=== PATIENT | female | born 1950 | race Caucasian/White ===

== ENCOUNTER 2020-01-30 09:41 | Outpatient (CLI) | payer MEDICARE, SELFPAY ==
--- NOTE | ~2020-01-30 | MM_ITS ---
EXAMINATION: MM screening [facility] BI w jean HISTORY: Screening mammogram TECHNIQUE: Craniocaudal and mediolateral oblique 3-D tomosynthesis images were obtained and synthetic 2-D images were generated. CAD analysis was submitted and interpreted. COMPARISON: Comparison to multiple prior studies sequentially, with oldest reviewed study dated 01/13. BREAST PARENCHYMAL COMPOSITION: There are scattered areas of fibroglandular density. FINDINGS: There are benign breast calcifications. There is no evidence of suspicious mass, calcificat ion, or architectural distortion to suggest malignancy in either breast. There has been no suspicious interval change. IMPRESSION: 1. No mammographic evidence of malignancy. 2. Recommend routine screening mammography in one year. BI-RADS Category 2: Benign finding(s). Reviewed, dictated and finalized at location A.
== END 2020-01-30 09:42 | disposition home or self-care (01) ==
LOC: ANHIMG 09:48
PROVIDERS: PCP Family Medicine; Visit Provider Obstetrics & Gynecology Gynecology
DX: Z12.31 Encounter for screening mammogram for malignant neoplasm of breast (principal)
CPT/HCPCS: 77063; 77067

== ENCOUNTER 2020-06-04 11:14 | Outpatient (NON) | payer MEDICARE, OTHER, SELFPAY ==
[2020-06-05 22:36] LABS: SARS-CoV-2 RNA PCR Negative
== END 2020-06-04 11:15 ==
LOC: ANHCOVIDDT 11:16
PROVIDERS: PCP Family Medicine; Visit Provider Family Medicine
DX: Z20.828 Contact with and (suspected) exposure to other viral communicable diseases (principal); R05 Cough
CPT/HCPCS: 87635; C9803; U0003

== ENCOUNTER → 2021-05-20 12:58 | Outpatient (CLI) | payer MEDICARE, SELFPAY ==
--- NOTE | ~2021-05-20 | DEXA_ITS ---
Bone Density Report Name: Evelyn Matthews Age: 71 Sex: Female Ethnicity: White Date of : 1950 Indication: monitoring treatment; parental hip fracture; height loss; prior fracture; hysterectomy; postmenopausal Referring Provider: DEANNA SAXENA Study: Bone densitometry was performed. Exam Date: May 20, 2021 Accession number: [id number] There is hypertrophic degenerative change of the lumbar spine, which results in higher than expected spine bone mineral density measurements. These spine BMD and T score and Z score measurements are not reflective of the patient's true general bone mineral density. Bone Density: Region BMD T-score Z-score Classification AP Spine (L1-L4) 1.121 0.7 2.8 Normal Femoral Neck (Left) 0.774 -0.7 1.1 Normal Total Hip (Left) 0.898 -0.4 1.1 Normal World Health Organization criteria for BMD impression classify patients as: Normal (T-score at or above -1.0), Osteopenia (T-score between -1.0 and -2.5), or Osteoporosis (T-score at or below -2.5). 10-year Fracture Risk: FRAX not reported because: All T-scores for Spine Total, Hip Total, Femoral Neck at or above -1.0 Prior hip or vertebral fracture Treated for osteoporosis Previous Exams: Region Exam Age BMD T-score BMD Change BMD Change Date g/cm2 vs Baseline vs Previous AP Spine(L1-L4) 05/20/2021 71 1.121 0.7 0.044* -0.025* 06/05/2016 66 1.145 0.9 0.069* 0.067* 09/21/2011 61 1.079 0.3 0.002 0.008 07/22/2009 59 1.071 0.2 -0.006 -0.006 01/13/2006 55 1.077 0.3 Total Hip(Left) 05/20/2021 71 0.898 -0.4 0.036* 0.009 06/05/2016 66 0.889 -0.4 0.027 0.040* 09/21/2011 61 0.849 -0.8 -0.013 -0.024 07/22/2009 59 0.873 -0.6 0.011 0.011 01/13/2006 55 0.862 -0.7 *Denotes significance at 95% confidence level, LSC for AP Spine = 0.022 g/cm2, LSC for Total Hip = 0.027 g/cm2 Clinical Information Provided by Patient: Have had a previous hip or vertebral fracture Has had a low trauma fracture Parent has had a hip fracture Is being treated for osteoporosis Has used the following medications: HRT (i.e. estrogen/hormone therapy), Vitamin D, Calcium, MTV Has the following medical conditions: Hysterectomy Patient maximum height was 66 Menopause Age: 46 Does not regularly consume dairy products Onset of menses at age 13 Number of children 2 Impression: The patient has normal bone mas
--- NOTE | ~2021-05-20 | MM_ITS ---
EXAMINATION: MM screening [facility] w jean HISTORY: Screening mammogram TECHNIQUE: Craniocaudal and mediolateral oblique 3-D tomosynthesis images were obtained and synthetic 2-D images were generated. CAD analysis was submitted and interpreted. COMPARISON: 01/20/2020, 10/18/2018, 07/28/2017 bilateral digital screening mammogram examinations BREAST PARENCHYMAL COMPOSITION: There are scattered areas of fibroglandular density. FINDINGS: There are numerous bilateral benign calcifications, particularly secretory type calcificati ons. There is no evidence of suspicious mass, calcification, or architectural distortion to suggest m alignancy in either breast. There has been no suspicious interval change. IMPRESSION: 1. No mammographic evidence of malignancy. 2. Recommend routine screening mammography in one year. BI-RADS Category 2: Benign finding(s). Reviewed, dictated and finalized at location A.
== END ==
PROVIDERS: PCP Family Medicine; Visit Provider Obstetrics & Gynecology Gynecology
DX: Z12.31 Encounter for screening mammogram for malignant neoplasm of breast (principal); Z78.0 Asymptomatic menopausal state
CPT/HCPCS: 77063; 77067; 77080

== ENCOUNTER → 2021-08-28 12:46 | Outpatient (CLI) | payer MEDICARE, OTHER, SELFPAY ==
--- NOTE | ~2021-08-28 | US_ITS ---
EXAMINATION: US thyroid DATE: 08/28/2021 13:12 INDICATION: Nontoxic multinodular goiter. TECHNIQUE: Multiple ultrasound images of the thyroid were obtained. COMPARISON: None. FINDINGS: The right thyroid lobe measures 5.4 x 2.1 x 2.2 cm. The left thyroid lobe measures 5.8 x 2.0 x 2.4 c m. In the left thyroid lobe, there is a 2.8 cm predominantly solid, hypoechoic, foiqx-mzpv-pqdm nodu le with ill-defined margin without echogenic foci (TI-RADS TR4). In the left thyroid lobe, there is a 1.4 cm solid, hypoechoic, ulang-jhyw-tlee nodule with ill-defined margin without echogenic foci (TR4 ). In the right thyroid lobe, there is a 1.2 cm solid, hypoechoic, zdftf-siyg-nrqa nodule with ill-de fined margin without echogenic foci (TR4). In the right thyroid lobe, there is a 1.5 cm solid, hypoec hoic, wptdk-zvnl-tljm nodule with ill-defined margin without echogenic foci (TR4). In the right thyro id lobe, there is a 1.7 cm solid, hypoechoic, wssoa-kmtk-qolz nodule with ill-defined margin without echogenic foci (TR4). IMPRESSION: 1. Multinodular goiter. Ultrasound-guided fine-needle aspiration of 2 nodules is recommended. Reviewed, dictated and finalized at location A. UP IMPRESSION: 1. Multinodular goiter. Ultrasound-guided fine-needle aspiration of 2 nodules i s recommended.
== END ==
PROVIDERS: PCP Family Medicine; Visit Provider Family Medicine
DX: E04.2 Nontoxic multinodular goiter (principal)
CPT/HCPCS: 76536

== ENCOUNTER 2021-09-18 10:07 | Outpatient (CLI) | payer MEDICARE, OTHER, SELFPAY ==
--- NOTE | ~2021-09-18 | US_ITS ---
EXAMINATION: US FNA w image guidance, US FNA additional DATE: 09/18/2021 11:15 INDICATION: Nontoxic multinodular goiter COMPARISON: 08/28/2021 TECHNIQUE: A time-out was performed to verify the patient's name, date of , and procedure to be performed . The procedure and its benefits and risks were discussed with the patient. Risks specifically discus sed included bleeding and infection. The patient understood the risks and agreed to proceed. The neck was prepped and draped in the usual sterile manner. Attention was first turned to the left thyroid n odule. 3 mL 1% lidocaine was used for local anesthesia. 6 passes were made with a 25G needle into th e lesion. Appropriate needle location was documented with continuous sonographic guidance. Attention was then turned to the right thyroid nodule. No additional 2 mL 1% lidocaine was used for local anes thesia. 6 passes were made with a 25G needle into the lesion. Appropriate needle location was documen carla with continuous sonographic guidance. Sterile bandages were applied. There were no immediate com plications. FINDINGS: Grayscale ultrasound images demonstrate biopsy needles advanced into initially a 2.2 cm TI RADS 4 lef t thyroid nodule and subsequently the largest 1.4 cm TI RADS 4 nodule at the inferior left thyroid. IMPRESSION: 1. Successful ultrasound-guided fine needle aspiration of the largest 2.2 cm TI-RADS 4 left thyroid nodule. Line 2. Successful ultrasound-guided fine-needle aspiration of the second largest thyroid nodule measuring 1.4 cm in the left thyroid. Reviewed, dictated and finalized at location A. T JOURNALIST IMPRESSION: 1. Successful ultrasound-guided fine needle aspiration of the largest 2.2 cm T I-RADS 4 left thyroid nodule. Line 2. Successful ultrasound-guided fine-needle aspiration of the second largest th yroid nodule measuring 1.4 cm in the left thyroid.
== END 2021-09-18 10:08 | disposition home or self-care (01) ==
PROVIDERS: PCP Family Medicine; Visit Provider Otolaryngology
DX: E04.2 Nontoxic multinodular goiter (principal)
CPT/HCPCS: 10005; 10006; 88173; 88305

== ENCOUNTER → 2022-02-21 09:17 | Outpatient (CLI) | payer OTHER, SELFPAY ==
--- NOTE | ~2022-02-21 | XR_ITS ---
XR shoulder LT min 2V 02/21/2022 09:36 Indication: Left shoulder pain Procedure: 4 views left shoulder Comparison: No prior studies for comparison. 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 No fracture or traumatic m alalignment. No soft tissue abnormality. No foreign bodies. Impression: 1: No acute fracture. Reviewed, dictated and finalized at location A. Impression: 1: No acute fracture.
== END ==
PROVIDERS: PCP Family Medicine; Visit Provider Family Medicine
DX: M25.512 Pain in left shoulder (principal)
CPT/HCPCS: 73030

== ENCOUNTER → 2022-09-02 12:56 | Outpatient (CLI) | payer OTHER, SELFPAY ==
--- NOTE | ~2022-09-02 | MM_ITS ---
EXAMINATION: MM screening [facility] w jean HISTORY: Screening TECHNIQUE: Craniocaudal and mediolateral oblique 3-D tomosynthesis images were obtained and synthetic 2-D images were generated. CAD analysis was submitted and interpreted. COMPARISON: Comparison to multiple prior studies sequentially, with oldest reviewed study dated 04/16 BREAST PARENCHYMAL COMPOSITION: There are scattered areas of fibroglandular density. FINDINGS: There is no evidence of suspicious mass, calcification, or architectural distortion to sugg est malignancy in either breast. There has been no suspicious interval change. IMPRESSION: 1. No mammographic evidence of malignancy. 2. Recommend routine screening mammography in one year. BI-RADS Category 1: Negative Reviewed, dictated and finalized at location A. LE OPERATOR
== END ==
PROVIDERS: PCP Family Medicine; Visit Provider Obstetrics & Gynecology Gynecology
DX: Z12.31 Encounter for screening mammogram for malignant neoplasm of breast (principal)
CPT/HCPCS: 77063; 77067

== ENCOUNTER 2022-10-08 01:24 | Day surgery (SDC) | payer OTHER, SELFPAY ==
[2022-09-30 14:39] VITALS: BMI 29.1
[2022-10-08 11:15] VITALS: BP 139/83; PULSE 93; RESP 18; TEMP 36.2; O2SAT 98
[2022-10-08] MEDS: LACTATED RINGERS 1,000 ML 150 ML IV CONT (11:19)
--- NOTE | 2022-10-08 11:22 | WPDHPUPDATE1 ---
History and Physical Update Update Date/Time: 10/08/22 11:22 History and Physical has been reviewed, including an updated exam of the patient. There are NO changes in the patient's condition. Risks, benefits, and alternatives have been discussed and questions answered. Patient agrees to proceed with procedure.
--- NOTE | 2022-10-08 12:00 | WPDANESEPPF ---
Anes - Initial Pre Proc Eval Procedure: Operation Date: 10/08/22 12:30 Proposed Procedures p Screening Colonoscopy - Darrell Thomas MD Date/Time: 10/08/22 12:00 Surgeon: Darrell Thomas MD Pre Op Diagnosis: neoplasm screening Patient Data Age: 72 Gender: F Height: 1.65 m Weight: 79.5 kg Last Vital Signs Temp 97.1 F L 10/08/22 11:15 Pulse 93 10/08/22 11:15 Resp 18 10/08/22 11:15 BP 139/83 10/08/22 11:15 Pulse Ox 98 10/08/22 11:15 O2 Del Method Room Air 10/08/22 11:15 Allergies Allergy/AdvReac Type Severity Reaction Status Date / Time amoxicillin Allergy Severe Hives Verified 10/08/22 11:13 ceftriaxone Allergy Severe low Verified 10/08/22 11:13 platlets Penicillins Allergy Severe Dermatitis Verified 10/08/22 11:13 Sulfa (Sulfonamide Allergy Intermediate RASH Verified 10/08/22 11:13 Antibiotics) codeine AdvReac Intermediate Nausea Verified 10/08/22 11:13 Azithromycin Allergy Mild swelling Uncoded 09/30/22 14:42 of lips Home Medications Medication Instructions Recorded Confirmed Type B-complex with vitamin C (Super 1 cap PO DAILY 06/15/19 09/30/22 History B/C capsule) Bacillus coagulans 10 billion cell 1 cell PO DAILY 06/15/19 09/30/22 History capsule,delayed release (Probiotic (B. coagulans)) calcium cit 315 mg-ergocalciferol 1 tablet PO DAILY 06/15/19 09/30/22 History (vitamin D2) 5 mcg (200 unit) tablet cetirizine 10 mg tablet (Zyrtec) 10 mg PO DAILY PRN ALLERGIES 06/15/19 09/30/22 History cholecalciferol (vitamin D3) 125 5,000 unit PO DAILY 06/15/19 09/30/22 History mcg (5,000 unit) tablet estradiol 1 mg tablet 1 mg PO DAILY 06/15/19 09/30/22 History multivitamin 1 tablet PO DAILY 06/15/19 09/30/22 History lisinopril 10 mg tablet 10 mg PO DAILY #90 tabs 03/12/22 09/30/22 Rx pravastatin 40 mg tablet 40 mg PO DAILY #90 tabs 04/15/22 09/30/22 Rx triamterene 37.5 1 tablet PO QAM #90 tabs 05/26/22 09/30/22 Rx mg-hydrochlorothiazide 25 mg tablet allopurinol 100 mg tablet 200 mg PO DAILY #180 tabs 07/22/22 09/30/22 Rx diphenoxylate-atropine 2.5 1 tablet PO QID PRN diarrhea #120 08/04/22 09/30/22 Rx mg-0.025 mg tablet (Lomotil) tabs dicyclomine 20 mg tablet 20 mg PO QID PRN abdominal pain 09/16/22 09/30/22 Rx #120 tabs cephalexin 500 mg capsule 500 mg PO BID 09/30/22 09/30/22 History meloxicam 15 mg tablet 15 mg PO DAILY 09/30/22 09/30/22 History Patient hx anesthesia problems: none Family hx anesthesia problems: none Results Review: All pre-operative results and documents have been reviewed as part of the pre-operative evaluation. [facility] Past Medical History Medical History Acute non-recurrent maxillary sinusitis Allergic drug reaction Atypical chest pain Benign paroxysmal positional vertigo due to bilateral vestibular disorder BMI 27.0-27.9,adult BMI 28.0-28.9,adult BMI 29.0-29.9,adult BMI 33.0-33.9,adult Body mass index (bmi) 32.0-32.9, adult (12/22/18) Chronic low back pain without sciatica Chronic pain in left shoulder X-ray of the left shoulder reveals mild arthritis 02/21/2022. Cough GERD (gastroesophageal reflux disease) Irritable bowel syndrome with diarrhea Multinodular non-toxic goiter ultrasound of the thyroid with multiple solid nodules with ill-defined margins 08/28/2021 Overweight (BMI 25.0-29.9) Septic arthritis of knee, left Vitamin D insufficiency Family History Family History Father Acute myocardial infarction, Onset Age: 59 Sibling Family history of malignant neoplasm, Onset Age: 58 Mother Family history of congestive heart failure, Onset Age: 75 Social History Social History Smoking status: Former smoker Alcohol intake: never Substance use: never Substance use type: does not
[2022-10-08 12:12] VITALS: BP 114/71; PULSE 66; RESP 19; O2SAT 98
[2022-10-08 12:22] VITALS: BP 127/83; PULSE 63; RESP 17; O2SAT 98
[2022-10-08 12:32] VITALS: BP 128/76; PULSE 57; RESP 18; O2SAT 99
== END 2022-10-08 12:44 | disposition home or self-care (01) ==
PROVIDERS: PCP Family Medicine; Visit Provider Internal Medicine Gastroenterology
PROC: 0DJD8ZZ Inspection of Lower Intestinal Tract, Via Natural or Artificial Opening Endoscopic (ICD-10-PCS; CPT 45378; principal; 2022-10-08 12:30)
DX: Z12.11 Encounter for screening for malignant neoplasm of colon (principal); K64.8 Other hemorrhoids; K58.9 Irritable bowel syndrome, unspecified; Z86.010 Personal history of colon polyps; K21.9 Gastro-esophageal reflux disease without esophagitis; E55.9 Vitamin D deficiency, unspecified
CPT/HCPCS: G0105; J2704; J7120

== ENCOUNTER → 2023-01-07 13:52 | Outpatient (CLI) | payer OTHER, SELFPAY ==
--- NOTE | ~2023-01-07 | XR_ITS ---
XR elbow RT 2V DATE: 01/07/2023 14:05 INDICATION: Right elbow pain for 2 weeks. No known injury. TECHNIQUE: AP and lateral views COMPARISON: None FINDINGS: No fracture or dislocation or joint effusion. No periosteal reaction or bone destruction. IMPRESSION: No significant abnormality Reviewed, dictated and finalized at location . IMPRESSION: No significant abnormality
== END ==
PROVIDERS: PCP Family Medicine; Visit Provider Nurse Practitioner Family
DX: M25.521 Pain in right elbow (principal); M79.621 Pain in right upper arm
CPT/HCPCS: 73070

== ENCOUNTER 2023-06-07 11:59 | Outpatient (CLI) | payer OTHER, SELFPAY ==
--- NOTE | 2023-06-07 12:04 | ECG_ITS ---
Measurements Intervals [place] Rate: 82 P: -7 AL: 191 QRS: -42 QRSD: 97 T: 4 QT: 376 QTc: 442 Interpretive Statements SINUS RHYTHM LEFT AXIS DEVIATION DELAYED PRECORDIAL R/S TRANSITION LOW QRS VOLTAGE IN PRECORDIAL LEADS INFERIOR INFARCT, AGE INDETERMINATE BASELINE WANDER- III, V4-V5 ABNORMAL ECG NO PREVIOUS ECG AVAILABLE FOR COMPARISON Electronically Signed On 06-07-2023 13:09:03 PATIENT FINANCIAL COUNSELOR by Sebastián Marie D.O.
== END 2023-06-07 12:00 | disposition home or self-care (01) ==
LOC: ANHCARD 12:00
PROVIDERS: PCP Family Medicine; Visit Provider Family Medicine
DX: R94.31 Abnormal electrocardiogram [ECG] [EKG] (principal); I44.4 Left anterior fascicular block
CPT/HCPCS: 93005

== ENCOUNTER 2023-06-17 14:05 | Outpatient (CLI) | payer OTHER, SELFPAY ==
--- NOTE | 2023-06-22 11:52 | WPDHOLTEREM ---
Holter/Event Monitor Holter/Event Monitor Date of procedure: 06/17/23 Holter/Event Procedure: 24 Hr Holter Monitor Indications: Palpitations Conclusion: 1. 24 hour holter monitor on 06/17/23. 2. Predominant rhythm is sinus rhythm. HR range 50-130 bpm; average HR 74 bpm. 3. There are 69 premature supraventricular complexes and 10 supraventricular couplets. There are 2 episodes of atrial tachycardia, fastest at 122 bpm and longest lasting 5 beats. 4. There are 429 premature ventricular complexes. No ventricular tachycardia. 5. No sinoatrial or atrioventricular blocks. No significant pauses greater than 2 seconds. 6. Patient reports symptoms of chest pounding, breathing hard, rapid beating, rate up which demonstrate sinus rhythm, HR range 65-105 bpm.
== END 2023-06-17 14:06 | disposition home or self-care (01) ==
PROVIDERS: PCP Family Medicine; Visit Provider Family Medicine
DX: R00.2 Palpitations (principal)
CPT/HCPCS: 93225; 93226

== ENCOUNTER → 2023-09-03 13:00 | Outpatient (CLI) | payer OTHER, SELFPAY ==
--- NOTE | ~2023-09-03 | MM_ITS ---
EXAMINATION: MM screening [facility] BI w jean HISTORY: Screening TECHNIQUE: Craniocaudal and mediolateral oblique 3-D tomosynthesis images were obtained and synthetic 2-D images were generated. CAD analysis was submitted and interpreted. COMPARISON: Comparison to multiple prior studies sequentially, with oldest reviewed study dated 11/2015. BREAST PARENCHYMAL COMPOSITION: Dense: The breasts are heterogeneously dense, which may obscure small masses FINDINGS: There is no evidence of suspicious mass, calcification, or architectural distortion to sugg est malignancy in either breast. There has been no suspicious interval change. IMPRESSION: 1. No mammographic evidence of malignancy. 2. Recommend routine screening mammography in one year. BI-RADS Category 1: Negative Reviewed, dictated and finalized at location A. LY TEAM MEMBERS
== END ==
PROVIDERS: PCP Family Medicine; Visit Provider Obstetrics & Gynecology Gynecology
DX: Z12.31 Encounter for screening mammogram for malignant neoplasm of breast (principal)
CPT/HCPCS: 77063; 77067

== ENCOUNTER 2024-03-24 09:18 | Outpatient (CLI) | payer OTHER, SELFPAY ==
[2024-03-24 10:43] LABS: Toxigenic C. Diff NEGATIVE (NEGATIVE)
[2024-04-01 22:07] LABS: Calprotectin, Stool 992 mcg/g
== END 2024-03-24 09:19 | disposition home or self-care (01) ==
LOC: ANHLAB 09:20
PROVIDERS: PCP Family Medicine; Visit Provider Nurse Practitioner Family
DX: R19.7 Diarrhea, unspecified (principal)
CPT/HCPCS: 83993; 87045; 87269; 87427; 87449; 87493

== ENCOUNTER 2024-05-02 10:02 | Outpatient (CLI) | payer OTHER, SELFPAY ==
[2024-05-02 11:24] LABS: Toxigenic C. Diff NEGATIVE (NEGATIVE)
[2024-05-08 23:24] LABS: Calprotectin, Stool 1860 mcg/g
== END 2024-05-02 10:03 | disposition home or self-care (01) ==
LOC: ANHLAB 10:03
PROVIDERS: PCP Family Medicine; Visit Provider Nurse Practitioner Family
DX: R19.5 Other fecal abnormalities (principal); A02.9 Salmonella infection, unspecified
CPT/HCPCS: 83993; 87045; 87427; 87449; 87493

== ENCOUNTER 2024-06-09 08:31 | Outpatient (CLI) | payer OTHER, SELFPAY ==
--- NOTE | ~2024-06-09 | CT_ITS ---
CT of the Abdomen and Pelvis: Indication: Diarrhea Technique: 2.5 mm axial scans were obtained through the abdomen and pelvis following intravenous adm inistration of 100 cc of Omnipaque 350. Dose reduction technique was used on this scan by utilizing a utomated exposure control and iterative reconstruction technique. The dose-length product (DLP) was 5 63.36 mGy-cm. Findings: Scans through the lung bases are unremarkable. The liver, spleen, pancreas, gallbladder, adrenals and left kidney are within normal limits. 6 mm non obstructing right renal stone present. No evidence of aortic aneurysm. No lymphadenopathy. Suspected mild wall thickening in the transverse and descending colon. No bowel obstruction. No absce ss or free air. Images through the pelvis were performed. Urinary bladder unremarkable. No pelvic mass evident. No as cites. Impression: Suspected mild colitis of the transverse and descending colon. Correlate clinically. 6 mm nonobstructing right renal stone. Reviewed, dictated and finalized at location . EHOLD ASSISTANT Impression: Suspected mild colitis of the transverse and descending colon. Correlate clinic ally. 6 mm nonobstructing right renal stone.
[2024-06-09 08:03] LABS: Estimated Glomerular Filt Rate > 60
[2024-06-09 09:03] LABS: Hematocrit 40.9 % (37.0-47.0); Hemoglobin 13.6 g/dL (12.0-15.0); Mean Corpuscular HGB Conc 33.3 g/dl (32-36); Mean Corpuscular Hemoglobin 32.4 pg (26-34); Mean Corpuscular Volume 97.4 fl (80-100); Mean Platelet Volume 9.5 fl (7.4-10.4); Platelet Count Result 342 k/mm3 (150-375); Red Cell Distribution Width 14.4 % (11.5-14.5); White Blood Count 8.9 K/mm3 (4.5-10.0)
[2024-06-09 10:16] LABS: Erythrocyte Sedimentation Rate 22 mm/hr (0-20)
[2024-06-09 11:53] LABS: Alanine Aminotransferase 20 U/L (6-35); Alkaline Phosphatase 58 U/L (38-126); Anion Gap 6 mmol/L (4-12); Aspartate Amino Transferase 36 U/L (14-36); Bilirubin,Total 0.6 mg/dL (0.2-1.3); Blood Urea Nitrogen 18 mg/dL (7-17); CRP 1.1 mg/dL (<1.0); Calcium 9.8 mg/dL (8.4-10.2); Carbon Dioxide 29 mmol/L (22-30); Chloride 96 mmol/L (98-107); Estimated Glomerular Filt Rate > 60; Glucose 102 mg/dL (65-110); Potassium 4.8 mmol/L (3.4-5.0); Sodium 131 mmol/L (137-145)
== END 2024-06-09 08:32 | disposition home or self-care (01) ==
PROVIDERS: PCP Family Medicine; Visit Provider Nurse Practitioner Family
DX: R19.7 Diarrhea, unspecified (principal); R10.9 Unspecified abdominal pain; R19.5 Other fecal abnormalities; N20.0 Calculus of kidney
CPT/HCPCS: 36415; 74177; 80053; 85027; 85652; 86140; Q9967

== ENCOUNTER 2024-07-13 01:00 | Day surgery (SDC) | payer OTHER, SELFPAY ==
[2024-07-05 09:04] VITALS: BMI 28.0
--- NOTE | 2024-07-13 11:29 | WPDANESEPPF ---
Anes - Initial Pre Proc Eval Procedure: Operation Date: 07/13/24 14:00 Proposed Procedures p Colonoscopy - Adrián Oates MD Date/Time: 07/13/24 11:29 Surgeon: Adrián Oates MD Pre Op Diagnosis: Diarrhea Patient Data Age: 74 Gender: F Height: 1.65 m Weight: 76.3 kg Allergies Allergy/AdvReac Type Severity Reaction Status Date / Time amoxicillin Allergy Severe Hives Verified 07/13/24 11:27 ceftriaxone Allergy Severe low Verified 07/13/24 11:27 platlets Penicillins Allergy Severe Dermatitis Verified 07/13/24 11:27 Sulfa (Sulfonamide Allergy Intermediate RASH Verified 07/13/24 11:27 Antibiotics) codeine AdvReac Intermediate Nausea Verified 07/13/24 11:27 Azithromycin Allergy Mild swelling Uncoded 07/05/24 08:59 of lips Home Medications ?Medication ?Instructions ?Recorded ?Confirmed ?Type B-complex with vitamin C (Super 1 cap PO DAILY 06/15/19 07/05/24 History B/C capsule) Bacillus coagulans 10 billion cell 1 cell PO DAILY 06/15/19 07/05/24 History capsule,delayed release (Probiotic (B. coagulans)) calcium 315 mg (as 1 tablet PO DAILY 06/15/19 07/05/24 History citrate)-ergocalciferol 5 mcg (200 unit) tablet cetirizine 10 mg tablet (Zyrtec) 10 mg PO DAILY PRN ALLERGIES 06/15/19 07/05/24 History cholecalciferol (vitamin D3) 125 5,000 unit PO DAILY 06/15/19 07/05/24 History mcg (5,000 unit) tablet estradiol 1 mg tablet 1 mg PO DAILY 06/15/19 07/05/24 History multivitamin 1 tablet PO DAILY 06/15/19 07/05/24 History allopurinol 100 mg tablet 200 mg (2 x 100 mg) PO DAILY #180 07/20/23 07/05/24 Rx tabs meloxicam 15 mg tablet 15 mg PO DAILY #90 tabs 07/20/23 07/05/24 Rx bupropion HCl 150 mg 24 hr tablet, 150 mg PO QAM #30 tabs 10/11/23 07/05/24 Rx extended release (Wellbutrin XL) alprazolam 0.25 mg tablet 0.125 mg (1/2 x 0.25 mg) PO TID 01/27/24 07/05/24 Rx PRN anxiety #30 tabs lisinopril 10 mg tablet 10 mg PO DAILY #90 tabs 02/14/24 07/05/24 Rx ferrous sulfate 325 mg (65 mg 325 mg PO DAILY 03/23/24 07/05/24 History iron) tablet,delayed release triamterene 37.5 1 tablet PO QAM #90 tabs 05/09/24 07/05/24 Rx mg-hydrochlorothiazide 25 mg tablet metoprolol succinate 25 mg 25 mg PO DAILY #30 tabs 06/05/24 07/05/24 Rx tablet,extended release 24 hr pravastatin 40 mg tablet 40 mg PO DAILY #90 tabs 06/19/24 07/05/24 Rx Patient hx anesthesia problems: none Family hx anesthesia problems: none Results Review: All pre-operative results and documents have been reviewed as part of the pre-operative evaluation. [facility] Past Medical History Medical History (Updated 04/27/24 @ 13:44 by Olivia Hurd, TECHNOLOGY PROJECT MANAGER-C) Diarrhea Abdominal pain Elevated fecal calprotectin At moderate risk for fall Low iron iron level low at 38 with 13% saturation and ferritin 37 with hemoglobin 13.3 on 03/14/2024. Chronic anxiety Abnormal finding on EKG (06/07/23) EKG on 06/07/2023 revealed signs of left axis deviation and possible previous inferior infarction with Q-waves in the inferior leads. No old EKG for comparison. Frequent PVCs (~05/2023) Rapid palpitations (~05/2023) 24 hour Holter monitor on 06/17/2023 revealed sinus rhythm with frequent PVCs. No worrisome arrhythmias. At low risk for fall URI, acute Breast cancer screening by mammogram normal mammogram 09/02/2022 with recheck in 1 year. Normal mammogram 09/03/2023. Polyp of colon history of colon polyp with normal colonoscopy on 10/08/[address] Thomas with recheck in 5 years. Right elbow pain Pain in right upper arm Benign paroxysmal positional vertigo due to bilateral vestibular disorder Chronic pain in left shoulder X-ray of the left shoulder reveals mild arthritis 02/21/2022. Overweight (BMI 25.0-29.9) BMI 28.0-28.9,adult Multinodular non-toxic goiter ultrasound of the thyroid with multiple solid nodules with ill-defined margins 08/28/2021 . TSH 2.38 on 02/19/2023. BMI 27.0-27.9,adult BMI 29.0-29.9,adult Atypical chest pain Irritable bowel syndrome with diarrhea elevated calprotectin level at 992 on 03/24/2024 suggestive of inflammatory bowel disease. BMI 33.0-33.9,adult GERD (gastroesophageal reflux disease) Allergic drug reaction Acute non-recurrent maxillary sinusitis Cough Chronic low back pain without sciatica Vitamin D insufficiency Vitamin-D level low at 18 with goal greater than 30 on 03/14/2024. Septic arthritis of knee, left Body mass index (bmi) 32.0-32.9, adult (12/22/18) Macrocytosis Hemoglobin 13.4 with MCV normal at 99.7 on 02/19/2023. Other secondary thrombocytopenia Platelets 263 on 02/19/2023. Platelets normal at 270 on 03/14/2024. Family History Family History Father Acute myocardial infarction, Onset Age: 59 Sibling Family history of malignant neoplasm, Onset Age: 58 Mother Family history of congestive heart failure, Onset Age: 75 Social History Social History Smoking status: Former smoker Alcohol intake: never Substance use: never Substance use type: does not use Lack of Transportation: No Lack of Food: Never True Current Housing: I Have Housing Concerned About Future Housing: No Difficulty Paying Gas/Electric Bills: No Difficulty Paying for Meds: No Currently Unemployed: No Education: High School Diploma/GED Difficulty w/ Childcare or Family Care: No Living arrangements: with family Spiritual care concerns: No Anes - Eval Final PreProcedure Day of Procedure 07/13/24 11:29 Patient weight: normal Heart: regular rate and rhythm Lungs: clear to auscultation Neurological: alert and oriented Last oral intake: >/= 8 hours ASA classification: III Emergent: no Anesthetic plan: proceed Anesthesia type and monitoring: general GIVS and standard monitoring Results Review: All pre-operative results and documents have been reviewed as part of the pre-operative evaluation. Informed Consent: The patient's anesthetic plan and its attendant risks and benefits were discussed with the patient/family/POA. Questions were solicited and answers provided to the satisfaction of the patient/family/POA.
[2024-07-13 11:30] VITALS: BP 138/87; PULSE 74; RESP 18; TEMP 36.6; O2SAT 98
[2024-07-13] MEDS: LACTATED RINGERS 1,000 ML 150 ML IV CONT (11:32)
--- NOTE | 2024-07-13 12:03 | P.HP_ITS ---
History of Present Illness History of Present Illness Consent: Risks, benefits, and alternatives have been discussed and questions answered. Patient agrees to proceed with procedure. Chief complaint: Diarrhea Narrative: Evelyn Matthews is a 74 year old female here for colonoscopy, h/o ibs-d (viberzi did not help) but months ago with more diarrhea after had raoultella ornithinolytica- treated with cipro, no more diarrhea since. During her very first colonoscopy had polyp, last one 2022 without polyp. Review of Systems Review of Systems: All systems reviewed & are unremarkable except as noted in HPI and below PMFSH Past Medical History Medical History (Updated 04/27/24 @ 13:44 by Olivia Hurd, [employer]) Diarrhea Abdominal pain Elevated fecal calprotectin At moderate risk for fall Low iron iron level low at 38 with 13% saturation and ferritin 37 with hemoglobin 13.3 on 03/14/2024. Chronic anxiety Abnormal finding on EKG (06/07/23) EKG on 06/07/2023 revealed signs of left axis deviation and possible previous inferior infarction with Q-waves in the inferior leads. No old EKG for comparison. Frequent PVCs (~05/2023) Rapid palpitations (~05/2023) 24 hour Holter monitor on 06/17/2023 revealed sinus rhythm with frequent PVCs. No worrisome arrhythmias. At low risk for fall URI, acute Breast cancer screening by mammogram normal mammogram 09/02/2022 with recheck in 1 year. Normal mammogram 09/03/2023. Polyp of colon history of colon polyp with normal colonoscopy on 10/08/[address] Thomas with recheck in 5 years. Right elbow pain Pain in right upper arm Benign paroxysmal positional vertigo due to bilateral vestibular disorder Chronic pain in left shoulder X-ray of the left shoulder reveals mild arthritis 02/21/2022. Overweight (BMI 25.0-29.9) BMI 28.0-28.9,adult Multinodular non-toxic goiter ultrasound of the thyroid with multiple solid nodules with ill-defined margins 08/28/2021 . TSH 2.38 on 02/19/2023. BMI 27.0-27.9,adult BMI 29.0-29.9,adult Atypical chest pain Irritable bowel syndrome with diarrhea elevated calprotectin level at 992 on 03/24/2024 suggestive of inflammatory bowel disease. BMI 33.0-33.9,adult GERD (gastroesophageal reflux disease) Allergic drug reaction Acute non-recurrent maxillary sinusitis Cough Chronic low back pain without sciatica Vitamin D insufficiency Vitamin-D level low at 18 with goal greater than 30 on 03/14/2024. Septic arthritis of knee, left Body mass index (bmi) 32.0-32.9, adult (12/22/18) Macrocytosis Hemoglobin 13.4 with MCV normal at 99.7 on 02/19/2023. Other secondary thrombocytopenia Platelets 263 on 02/19/2023. Platelets normal at 270 on 03/14/2024. Family History Family History Father Acute myocardial infarction, Onset Age: 59 Sibling Family history of malignant neoplasm, Onset Age: 58 Mother Family history of congestive heart failure, Onset Age: 75 Social History Social History Smoking status: Former smoker Alcohol intake: never Substance use: never Substance use type: does not use Lack of Transportation: No Lack of Food: Never True Current Housing: I Have Housing Concerned About Future Housing: No Difficulty Paying Gas/Electric Bills: No Difficulty Paying for Meds: No Currently Unemployed: No Education: High School Diploma/GED Difficulty w/ Childcare or Family Care: No Living arrangements: with family Spiritual care concerns: No Meds Home Medications and Allergies Home Medications ?Medication ?Instructions ?Recorded ?Confirmed ?Type B-complex with vitamin C (Super 1 cap PO DAILY 06/15/19 07/13/24 History B/C capsule) Bacillus coagulans 10 billion cell 1 cell PO DAILY 06/15/19 07/13/24 History capsule,delayed release (Probiotic (B. coagulans)) calcium 315 mg (as 1 tablet PO DAILY 06/15/19 07/13/24 History citrate)-ergocalciferol 5 mcg (200 unit) tablet cetirizine 10 mg tablet (Zyrtec) 10 mg PO DAILY PRN ALLERGIES 06/15/19 07/13/24 History cholecalciferol (vitamin D3) 125 5,000 unit PO DAILY 06/15/19 07/13/24 History mcg (5,000 unit) tablet estradiol 1 mg tablet 1 mg PO DAILY 06/15/19 07/13/24 History multivitamin 1 tablet PO DAILY 06/15/19 07/13/24 History allopurinol 100 mg tablet 200 mg (2 x 100 mg) PO DAILY #180 07/20/23 07/13/24 Rx tabs meloxicam 15 mg tablet 15 mg PO DAILY #90 tabs 07/20/23 07/13/24 Rx bupropion HCl 150 mg 24 hr tablet, 150 mg PO QAM #30 tabs 10/11/23 07/13/24 Rx extended release (Wellbutrin XL) alprazolam 0.25 mg tablet 0.125 mg (1/2 x 0.25 mg) PO TID 01/27/24 07/13/24 Rx PRN anxiety #30 tabs lisinopril 10 mg tablet 10 mg PO DAILY #90 tabs 02/14/24 07/13/24 Rx ferrous sulfate 325 mg (65 mg 325 mg PO DAILY 03/23/24 07/13/24 History iron) tablet,delayed release triamterene 37.5 1 tablet PO QAM #90 tabs 05/09/24 07/13/24 Rx mg-hydrochlorothiazide 25 mg tablet metoprolol succinate 25 mg 25 mg PO DAILY #30 tabs 06/05/24 07/13/24 Rx tablet,extended release 24 hr pravastatin 40 mg tablet 40 mg PO DAILY #90 tabs 06/19/24 07/13/24 Rx Allergies Allergy/AdvReac Type Severity Reaction Status Date / Time amoxicillin Allergy Severe Hives Verified 07/13/24 11:27 ceftriaxone Allergy Severe low Verified 07/13/24 11:27 platlets Penicillins Allergy Severe Dermatitis Verified 07/13/24 11:27 Sulfa (Sulfonamide Allergy Intermediate RASH Verified 07/13/24 11:27 Antibiotics) codeine AdvReac Intermediate Nausea Verified 07/13/24 11:27 Azithromycin Allergy Mild swelling Uncoded 07/05/24 08:59 of lips Vital Signs Vital Signs - 24 hr 07/13/24 11:30 Temperature 97.9 F Pulse Rate 74 Respiratory Rate 18 Blood Pressure 138/87 Pulse Oximetry 98 Oxygen Delivery Room Air Exam Const: General: comfortable and no acute distress HENMT: Face/Nose/Sinus: Normal nares present Eyes: General: appearance normal, both eyes and all related structures Neck: Neck: no JVD Resp: Auscultation: clear to auscultation bilaterally Cardio: Rate: regular rate Rhythm: regular rhythm GI: Inspection: non-distended GI Palp: Yes Soft to palpation Skin: General skin exam: normal color Neuro: General: gait normal Speech: normal speech Extrem: General: normal to inspection Psych: Mental Status: mental status grossly normal Assessment and Plan Assessment and plan (1) Irritable bowel syndrome with diarrhea: Code(s): K58.0 - Irritable bowel syndrome with diarrhea Status: Acute Assessment and Plan: no more diarrhea, she is not using anything colonoscopy (2) Polyp of colon: Qualifiers: Colon polyp type: unspecified Colon location: unspecified part of colon Qualified Code(s): K63.5 - Polyp of colon Code(s): K63.5 - Polyp of colon Status: Acute
[2024-07-13 12:18] VITALS: BP 92/56; PULSE 56; RESP 20; O2SAT 96
[2024-07-13 12:28] VITALS: BP 98/55; PULSE 54; RESP 19; O2SAT 96
[2024-07-13 12:38] VITALS: BP 111/68; PULSE 545; RESP 19; O2SAT 98
== END 2024-07-13 12:53 | disposition home or self-care (01) ==
PROVIDERS: PCP Family Medicine; Referring Provider Nurse Practitioner; Visit Provider Internal Medicine Gastroenterology
PROC: 0DJD8ZZ Inspection of Lower Intestinal Tract, Via Natural or Artificial Opening Endoscopic (ICD-10-PCS; CPT 45378; principal; 2024-07-13 14:00)
DX: K58.0 Irritable bowel syndrome with diarrhea (principal); K64.8 Other hemorrhoids; E61.1 Iron deficiency; F41.9 Anxiety disorder, unspecified; K21.9 Gastro-esophageal reflux disease without esophagitis; E55.9 Vitamin D deficiency, unspecified; D69.59 Other secondary thrombocytopenia; G89.29 Other chronic pain; M25.512 Pain in left shoulder; M54.50 Low back pain, unspecified; M00.9 Pyogenic arthritis, unspecified; D75.89 Other specified diseases of blood and blood-forming organs; Z87.891 Personal history of nicotine dependence; Z86.0100 Personal history of colon polyps, unspecified; Z80.9 Family history of malignant neoplasm, unspecified; Z82.49 Family history of ischemic heart disease and other diseases of the circulatory system
CPT/HCPCS: 45378; J2003; J2704; J7120

== ENCOUNTER 2024-09-14 10:29 | Outpatient (CLI) | payer OTHER, SELFPAY ==
--- NOTE | ~2024-09-14 | MM_ITS ---
EXAMINATION: MM screening [facility] BI w jean HISTORY: Screening TECHNIQUE: Craniocaudal and mediolateral oblique 3-D tomosynthesis images were obtained and synthetic 2-D images were generated. CAD analysis was submitted and interpreted. COMPARISON: Comparison to multiple prior studies sequentially, with oldest reviewed study dated 07/03. BREAST PARENCHYMAL COMPOSITION: Not dense: There are scattered areas of fibroglandular density. FINDINGS: There is no evidence of suspicious mass, calcification, or architectural distortion to sugg est malignancy in either breast. There has been no suspicious interval change. IMPRESSION: 1. No mammographic evidence of malignancy. 2. Recommend routine screening mammography in one year. BI-RADS Category 1: Negative Reviewed, dictated and finalized at location [facility] [employer]
== END 2024-09-14 10:30 | disposition home or self-care (01) ==
PROVIDERS: PCP Family Medicine; Visit Provider Obstetrics & Gynecology Gynecology
DX: Z12.31 Encounter for screening mammogram for malignant neoplasm of breast (principal)
CPT/HCPCS: 77063; 77067

== ENCOUNTER → 2024-11-01 15:04 | Outpatient (CLI) | payer OTHER, SELFPAY ==
--- NOTE | ~2024-11-01 | XR_ITS ---
Lumbosacral Spine: AP and lateral views Clinical History: Pain Findings: There is levoscoliosis. No fracture or subluxation clearly evident. There are severe degene rative disc narrowing at L2-L3. There is moderate degenerative spurring at L1-L2 and L3-L4. There is severe facet arthropathy throughout the lumbar spine. The sacroiliac joints are normally outlined. Impression: Levoscoliosis with advanced degenerative spondylosis, as above. Reviewed, dictated and finalized at location . Impression: Levoscoliosis with advanced degenerative spondylosis, as above.
--- OUTSIDE RECORDS SUMMARY | 2024-11-01 16:26 | XMS_ITS | Clinical Summary ---
Author Organization [facility] [address] Address [address] [place] [address] Care Team Providers Care Director Of Student Aid Name Role Phone Meir Mendoza MD Primary Care Provider [phone] Zuleyka Motta MD Unavailable Darrell Carolina MD Unavailable [phone] Lenin Rasmussen MD Unavailable [phone] Edwin Rodarte NP Unavailable Allergies Active Allergy Reactions Criticality Noted Date Comments Amoxicillin Rash Medium 01/03/2018 Azithromycin Hives Medium 09/26/2020 Ceftriaxone Other (See comments) Low 07/05/2019 Depletes platelets Codeine Nausea only Low Penicillins Swelling Medium Sulfa (Sulfonamide Antibiotics) Rash Medium 07/06/2017 Medications cetirizine (ZyrTEC) 10 mg tablet take 1 tablet by oral route every day 0 0 6 Active estradiol (ESTRACE) 1 mg tablet take 1 tablet by oral route every day 0 0 6 Active pravastatin (PRAVACHOL) 40 mg tablet Take 1 tablet (40 mg total) by mouth nightly 7 Active multivitamin capsule Take 1 capsule by mouth daily Active cholecalciferol (VITAMIN D-3) 5,000 unit capsuleIndicati ons:Vitamin D Deficiency Take 2,000 Units by mouth every other day. Pt. states takes every other day Active calcium carbonate (OS-SURESH) 1,500 mg (600 mg of elemental calcium) tabletIndicatio ns:Osteoporosis Take 2 tablets (3,000 mg total) by mouth daily Active meloxicam (MOBIC) 15 mg tablet Take 1 tablet (15 mg total) by mouth daily Active triamterene-hyd roCHLOROthiazid e (MAXZIDE,DYAZID E) 37.5-25 mg per tablet/capsule Take 1 tablet/capsule by mouth daily Active b complex vitamins tablet Take 1 tablet by mouth daily Active furosemide (LASIX) 40 mg tablet Take 1 tablet (40 mg total) by mouth daily as needed Active cephalexin (KEFLEX) 500 mg capsule Take 1 capsule (500 mg total) by mouth 2 (two) times a day 8 Active ALPRAZolam (XANAX) 0.25 mg tablet Take 0.5 tablets (0.125 mg total) by mouth nightly as needed 9 Active valACYclovir (VALTREX) 500 mg tablet Take 1 tablet (500 mg total) by mouth 2 (two) times a day Active allopurinol (ZYLOPRIM) 100 mg tablet Take 1 tablet (100 mg total) by mouth daily 3 9 Active melatonin 5 mg tablet Take 1 tablet (5 mg total) by mouth daily Active lisinopriL (PRINIVIL,ZESTR IL) 10 mg tablet Take 1 tablet (10 mg total) by mouth daily 0 Active metoprolol XL (TOPROL-XL) 25 mg extended release tablet Take 1 tablet (25 mg total) by mouth daily 4 Active buPROPion XL (WELLBUTRIN XL) 150 mg 24 hr tablet Take 1 tablet (150 mg total) by mouth every morning 4 Active colestipoL (COLESTID) 1 gram tablet Take 1 tablet (1 g total) by mouth 2 (two) times a day 4 Active dicyclomine (BENTYL) 10 mg capsule TAKE 1 CAPSULE BY MOUTH 4 TIMES DAILY NEEDED FOR ABDOMINAL PAIN 4 Active Active Problems Problem Noted Date Diagnosed Date Chronic right shoulder pain 04/17/2024 Arthritis of left hip 04/17/2024 Trochanteric bursitis of left hip 04/17/2024 Sacroiliitis, not elsewhere classified 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 She should continue with her total hip protocol Assessment & Plan (03/22/2023 2:43 PM CDT): Patient's revised total hip is doing quite well. She is walking and a balanced position. She should continue with her total hip protocol with follow-up on an annual basis Assessment & Plan (03/19/2022 1:35 PM CDT): Patient's hip revision appears to be doing well. There was no evidence of wear or loosening and no changes since previous films three years ago. The patient is return for annual checkup and would continue with her hip precautions Assessment & Plan (03/20/2021 2:27 PM CDT): Patient is doing well following the revision of her right total hip. Her sciatic nerve has recovered and she no longer has a footdrop Chest pain 10/23/2020 Traumatic complete tear of left rotator cuff 01/2019 Assessment & Plan (03/17/2024 8:02 AM CDT): Patient has mild to my arthritis of the left hip with arthritic changes at the sacroiliac joint where she is most symptomatic. She may find physical therapy helpful and if not a referral to pain management was given as well. Patient was assured that she does not have end-stage arthritis and is not in need of hip replacement on her left Assessment & Plan (01/22/2020 4:47 PM CDT): Patient has persistent weakness in the rotator cuff and likely a full-thickness tear. She does not want to entertain any surgical intervention but it would likely give her better relief of pain and strength in the arm. Long-term he may prevent secondary cuff arthropathy. For the time being though the patient wants to avoid any surgical intervention Assessment & Plan (06/15/2019 5:11 PM SALES ATTENDANT): Patient has a full-thickness tear with retraction of the supraspinatus and infraspinatus by MRI of her left shoulder. She has persistent weakness in the arm. She is likely have some associated pain with limited range of motion unless the rotator cuff is repaired. Reattaching the rotator cuff generally provides the best relief of pain range of motion druze as well as function over non operative treatment. After reviewing the treatment options she wants proceed with left rotator cuff repair. This generally could be performed comfortably on an outpatient basis using a deltoid mini splitting incision and a pain pump. Patient was advised risks of infection, incisional numbness, hypersensitive scar, blood loss blood clots recurrent tearing, recurrent spur formation, damage to the deltoid axillary nerve axillary artery, medical and anesthetic risks including is willing to proceed. Assessment & Plan (06/08/2019 11:43 AM SALES ATTENDANT): By exam the patient is likely to have a full-thickness tear of the rotator cuff. She is gained motion with therapy but not getting improvement in her strength. I would recommend obtaining an MRI to evaluate the integrity of the rotator cuff initiate appropriate treatment once results are available Thyroid nodule 03/18/2018 Assessment & Plan (03/18/2018 2:03 PM CDT): Will obtain TSH level, call with results Consider referral Dr. Gleason for Ultrasound guided FNA of Thyroid nodules 50 minutes spent with patient with over 45 minutes spent on reviewing images and counseling patient and answering questions. Thrombocytopenia 12/23/2017 Thrombocytopenia 12/22/2017 Assessment & Plan (12/22/2017 7:11 PM CDT): Likely second to antibiotic use which has since been discontinued one week ago. Will continue with Augmentin. ID has been consulted for which we appreciate their evaluation and recommendations. Postoperative anemia due to acute blood loss 07/2018 Assessment & Plan (11/11/2017 12:02 PM CDT): Patient was encouraged to continue iron at least twice daily with possible to help counter her postoperative anemia Mild protein-calorie malnutrition 11/11/2017 Assessment & Plan (11/11/2017 12:03 PM CDT): The patient's total protein and albumin levels are suboptimal and below normal range. This makes her less able to fight off infection and aid with wound healing. She was encouraged to continue with oral intake as much as possible. She has no evidence of oral thrush. She is to continue with the nutritional supplements as recommended by the dietitian Infection of total left knee replacement 018 Assessment & Plan (03/20/2021 2:26 PM CDT): Patient's left knee is doing extremely well. She notes some tightness that she attributes to scar tissue she is continue with a total knee protocol would have her return for annual checkup in x-rays Assessment & Plan (11/10/2018 12:02 PM CDT): Patient apparently is doing well following salvage revision knee replacement. She is scheduled to be seen by her infectious disease specialist next month and may be able to get off her oral antibiotics which she has continued until now. She was advised to follow her infectious disease specialist recommendations and otherwise return for annual checkup in x-rays unless symptoms develop in the interim Assessment & Plan (12/22/2017 7:20 PM CDT): S/p long-term IV antibiotic via PICC. Left knee is edematous. Orthopedics has been consulted for which we appreciate their evaluation and recommendations. PRN analgesics. PO Augmentin. Xray to evaluate joint. Assessment & Plan (11/25/2017 11:40 AM CDT): Patient's lab work as improved with a sed rate of only 58 and CRP now 24. The patient has had a recent flare-up of her colitis and should continue with treatment of her colitis. She has a scheduled appointment with Dr. Singh on December 14 which she was advised to keep to get his input and expertise Assessment & Plan (11/18/2017 2:24 PM CDT): Patient clinically is doing fairly well other than fatigue. Of concern her sed rate went from 50-80 however this week. She is afebrile but is not out of the rosas with her knee following debridement and polyethylene exchange for a Strep. Infection. She continues on IV antibiotics. Would like to have the knee subspecialist at [facility] take a look at her to see if any other further treatment would be indicated at this time. Does appear to be too early take her sutures out and would wait until next week Assessment & Plan (11/11/2017 11:55 AM CDT): Patient seems to be doing well. Her CRP and sed rate if dropped and half but are still elevated. She should continue the IV antibiotics as per Infectious Disease and was advised to get in to see the wound care clinic for management of her wound VAC. Would like to have her return to the office in 7-10 days Assessment & Plan (11/02/2017 12:11 PM CDT): The patient is developing recurrent fluid collection in the knee with the rising white count. I would recommend a follow-up debridement and polyethylene exchange. Patient certainly could undergo a a two-stage debridement with reimplantation as well. If a single stages performed a incisional wound VAC may be helpful to prevent the knee from reaccumulating fluid. Patient was advised that further debridements may require depending on her infection response to antibiotics but surgical decompression generally is beneficial and she is having increasing pain swelling and redness. Do not feel the antibiotics alone have been sufficient S/P TKR (total knee replacement) using cement, l eft 09/29/2017 Assessment & Plan (03/22/2023 2:43 PM CDT): Patient has undergone revision total knee replacement. She is doing well following her last procedure. The patient should continue with her total knee protocol would recommend annual x-rays and a checkup Assessment & Plan (10/21/2017 1:52 PM CDT): Patient had an effusion in the knee and aspirated approximately 25 cc of brick red thick opaque fluid from the joint. The fluid was sent for cell count crystals glucose levels stat Gram stain culture and sensitivity patient did have her out appearing all held approximately two months ago and may be having acute gouty attack. Since she had not eating well and several days and was likely dehydrated the patient was sent to the emergency room for hydration and further evaluation in the event she had a systemic upper respiratory infection or even influenza Essential hypertension 09/29/2017 Assessment & Plan (12/22/2017 7:17 PM CDT): Controlled with maxide and lisinopril. Continue. HLD (hyperlipidemia) 09/29/2017 Assessment & Plan (12/22/2017 7:16 PM CDT): Statin. Hyperuricemia 09/29/2017 Lumbar degenerative disc disease 09/07/2017 Assessment & Plan (09/07/2017 4:05 PM SALES ATTENDANT): The patient has most pronounced disc space narrowing at the mid lumbar spine with hypertrophic osteophytes consistent with chronic disc degeneration where her pain remains localized to the mid lumbar spine. As long as she is not developing progressive symptoms, radicular issues or myelopathy this can be followed conservatively. Would discourage her from performing any high impact activities or heavy lifting Arthritis of knee, left 09/07/2017 Assessment & Plan (01/22/2020 4:38 PM CDT): Patient appears to be doing quite well with her left total knee. She is to continue with keeping her weight down and low-impact activities. Would encourage her to return to the office for annual checkup in 12 months with follow-up films Arthritis of right hip 09/07/2017 Assessment & Plan (01/22/2020 4:39 PM CDT): Patient has undergone revision right total hip replacement has a 20-year-old implant that appears to be doing well. She should continue to follow her total hip protocol Assessment & Plan (11/10/2018 12:01 PM CDT): Patient has no evidence of fracture dislocation or loosening of her implant. She does have some heterotopic bone but it does not appear to interfere with her function at this time. 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 Assessment & Plan (11/10/2018 12:01 PM CDT): Patient does have a mild leg length inequality after undergoing revision total hip replacement. A heel lift was provided to help balance her walking mechanics better Assessment & Plan (09/07/2017 4:05 PM SALES ATTENDANT): A heel lift was provided for her right leg is shorter following her revision hip replacement surgery. She may find this improves her weight-bearing mechanics and balances her limb lengths better Anemia of chronic disease 09/07/2017 Assessment & Plan (12/22/2017 7:15 PM CDT): With decrease to 7.4/2 on 12/21/17 per osh. Likely related to chronic left knee infection. Reports to have had a recent upper and lower scope within the last several weeks which only showed redness per patient. Will check stat Cbc and if hemoglobin <7 will transfuse one unit of PRBC. Assessment & Plan (09/07/2017 4:10 PM SALES ATTENDANT): Patient has chronic anemia with a baseline hemoglobin of 11 hematocrit of 36. I would expect some perioperative blood loss and will start on iron supplementation two weeks prior to surgery. She may have her knee may based on chronic colitis and will have perioperative monitoring of blood counts Arthritis of left knee 07/06/2017 Assessment & Plan (03/19/2022 1:36 PM CDT): Patient was treated for a septic knee and has ongoing chronic suppressive antibiotic therapy which is likely suarez. She is using Keflex which has good bone and joint penetration and minimal side effects. It was recommended by the Infectious Disease expertise and would recommend the patient continue on this agent. Would recommend annual checkup in x-rays Assessment & Plan (09/07/2017 4:03 PM SALES ATTENDANT): Patient has end-stage arthritis of the left knee with instability and incongruities having failed respond to conservative measures including injectables would recommend knee replacement surgery. She was enrolled in a total knee protocol. She was encouraged to attend the total joint class and preoperative physical therapy for conditioning. Would have her taking iron two weeks prior to surgery in preparation for perioperative blood loss. The risks of knee replacement surgery include infection, incisional numbness, keloid formation, neurovascular compromise, blood loss, blood clots, fracture dislocation, wherewith possible need for revision, medical and anesthetic risks including . The risks and benefits were explained the patient is wanting to proceed and we will schedule surgery when convenient for the patient. Assessment & Plan (07/06/2017 10:58 AM SALES ATTENDANT): Patient was given a Synvisc injection through a sterile field. 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 Family history of ischemic h eart disease and other diseases of the circulatory system 04/03/2015 Palpitations 04/03/2015 Resolved Problems Problem Noted Date Diagnosed Date Resolved Date Iron deficiency anemia bossman cook to inadequate dietary iron intake 09/07/2017 8 Encounters Date Type Department Care Team Description 10/26/2024 11:00 AM CDT - 10/26/2024 11:59 PM CDT Hospital Encounter [facility] [address] [place] [id number] Edwin Rodarte NP Arthritis of left hip (Primary Dx); Trochanteric bursitis of left hip Discharge Disposition: Discharge to home or self care 10/04/2024 11:00 AM SALES ATTENDANT - 10/04/2024 11:59 PM SALES ATTENDANT Hospital Encounter [facility] [address] [place] [id number] Otot Castorena MD Arthritis of left hip Discharge Disposition: Discharge to home or self care 09/18/2024 10:01 AM SALES ATTENDANT - 09/18/2024 11:59 PM SALES ATTENDANT Hospital Encounter [facility] [id number] [place] [id number] Edwin Rodarte NP Arthritis of left hip (Primary Dx); Arthritis of knee, left; Trochanteric bursitis of left hip Discharge Disposition: Discharge to home or self care from Last 3 Months Surgical History Surgery Date Site/Laterality Comments HIP ARTHROPLASTY Right Hip replacement KNEE ARTHROSCOPY Left Arthroscopy knee ROTATOR CUFF REPAIR Right Rotator cuff repair HYSTERECTOMY KNEE SURGERY 09/29/2017 Left IR PICC LINE PLACEMENT > 5 YEARS 10/25/2017 N/A JOINT REPLACEMENT left knee BLADDER REPAIR ROTATOR CUFF REPAIR Left Rotator cuff repair Medical History Medical History Date Comments Hypertension Hypertension Hypercholesterolemia High choles terol Arthritis Arthritis PONV (postoperative nausea and vomiting) Urinary urgency Heart murmur History of transfusion Family History Medical History Relation Name Comments Rheumatologic disease Daughter Heart attack Father Heart disease Mother Heart disease Other 1 Family history of cardiac disorder - (Added by TW Conv) Arthritis Other 2 Family history of arthritis - (Added by TW Conv) Hypertension Other 3 Family history of hypertension - (Added by TW Conv) Cancer Sister 1 Arthritis Sister 2 Relation Name Status Comments Daughter Father Mother Other 1 Other 2 Other 3 Sister 1 Sister 2 Social History Tobacco Use Types Packs/Day Years Used Date Smoking Tobacco: Former Cigarettes Q uit: 09/22/1978 Smokeless Tobacco: Never Tobacco Cessation:Counseling Given: Not Answered Alcohol Use Standard Drinks/Week Comments No 0 (1 standard drink = 0.6 oz pur e alcohol) PHQ-2 Answer Date Recorded PHQ-2 Score 0 10/03/2018 Comments No Sex and Gender Information Value Date Recorded Sex Assigned at Not on file Legal Sex Female 12:44 PM SALES ATTENDANT Gender Identity Female 03/20/2021 7:46 AM CDT Sexual Orientation Straight 03/20/2021 7: 46 AM CDT Occupation Industry Job Start Date Job End Date retired Not on file Not on file Not on file Obstetrics History Last Filed Vital Signs Vital Sign Reading Time Taken Comments Blood Pressure 132/85 10/26/2024 11:21 AM CDT Pulse 64 10/26/2024 11:21 AM CDT Temperature 36.6 C (97.8 F) 10/04/2024 11:23 AM SALES ATTENDANT Respiratory Rate 16 10/26/2024 11:21 AM CDT Oxygen Saturation 96% 10/26/2024 11:21 AM CDT Inhaled Oxygen Concentration - - Weight 79.2 kg (174 lb 9.6 oz) 04/17/2024 11:55 AM CDT Height 165.1 cm (5' 5 ) 04/17/2024 11:55 AM CDT Body Mass Index 29.05 04/17/2024 11:55 AM CDT Plan of Treatment Health Maintenance Due Date Last Done Comments Breast Cancer Screening-Mammogram 1950 Colon Cancer Screening-Colonoscopy 1950 Depression Screening 1950 Hepatitis C Screening 1950 Osteoporosis Screening-Bone Density Scan 1950 DTaP/Tdap/Td Vaccine (1 - Tdap) 1962 Well Visit 65+ 2016 Influenza Vaccine (#1) 2024 9, 05/12/2018, 04/28/2017, Additional history exists Fall Risk Assessment 10/26/2025 10/26/2024 Hepatitis B Screening Completed 11/21/2007, 008 Pneumococcal vaccine 65+ Completed 05/12/2018, 04/03 Zoster Vaccine Completed 09/18/2018, 05/12/2018 Medical Devices Implanted Type Area Photo Mask Cleaner Device Identifier Shelf Expiration Date Model / Serial / Lot Component Femoral Vanguard Interlok Cocr L65 Mm Knee Left Cemented Posterior Stabilize Open Box - [id number] Implanted:Qty: 1 on 09/29/2017 by Darrell Carolina MD at [facility] Left: Knee [employer] 09/23/2026 [id number] / / [id number] Tray Tibial Cocr L71 Mm Knee I Beam - [id number] Implanted:Qty: 1 on 09/29/2017 by Darrell Carolina MD at [facility] Left: Knee [employer] 05/28/2027 [id number] / / [id number] Component Patellar Ascent Arcom Od31 Mm Knee Anterior Posterior 1 Peg Wire - [id number] Implanted:Qty: 1 on 09/29/2017 by Darrell Carolina MD at [facility] Left: Patella [employer] 07/21/2022 [id number] / / [id number] Cement Bone Palacos R 40 Gm Green - [id number] Implanted:Qty: 1 on 09/29/2017 by Darrell Carolina MD at [facility] Left: Knee [employer] [id number] 01/29/2022 [id number] / / [id number] Bearing Tibial Vanguard Porous L71/75 Mm X H14 Mm Knee Posterior Stabilize Plus Direct Compression Mold - [id number] Implanted:Qty: 1 on 11/03/2017 by Darrell Carolina MD at [facility] Left: Knee [employer] [id number] 09/28/2022 [id number] / / [id number] Component Tibial Tray Biomet Ascent Maxim Interlok Knee Primary Lock Bar - [id number] Implanted:Qty: 1 on 11/03/2017 by Darrell Carolina MD at [facility] Left: Knee [employer] [id number] 04/17/2026 [id number] / / [id number] Ar[employer] [id number] Swivelock Tigerwire Arthrex 4.75mm 22mm 2 Load 2 Tip Retention - [id number] Implanted:Qty: 1 on 07/07/2019 by Darrell Carolina MD at [facility] Left: Shoulder [employer] 03/01/2021 [id number] / / [id number] [employer] [id number] Swivelock Tigerwire Arthrex 4.75mm 22mm 2 Load 2 Tip Retention - [id number] Implanted:Qty: 1 on 07/07/2019 by Darrell Carolina MD at [facility] Left: Shoulder [employer] 01/29/2021 [id number] / / [id number] [employer] [id number] Swivelock C 4.75mm 19.1mm Closed Eyelet Vent Lorena Suture - [id number] Implanted:Qty: 1 on 07/07/2019 by Darrell Carolina MD at [facility] Left: Shoulder [employer] 08/01/2020 [id number] / / [id number] [employer] Ar-[id number] Swivelock C 4.75mm 19.1mm Close Eyelet Tape Loop Vent Lorena - [id number] Implanted:Qty: 1 on 07/07/2019 by Darrell Carolina MD at [facility] Left: Shoulder [employer] 08/01/2020 [id number] / / [id number] Explanted Type Area Photo Mask Cleaner Device Identifier Shelf Expiration Date Model / Serial / Lot Bearing Tibial Vanguard Porous L71/75 Mm X H14 Mm Knee Posterior Stabilize Plus Direct Compression Mold - [id number] Implanted:Qty: 1 on 09/29/2017 by Darrell Carolina MD at [facility] Explanted:Qty: 1 on 10/22/2017 at [facility] Left: Knee [employer] [id number] 01/09/2020 [id number] / / [id number] Component Tibial Tray Biomet Ascent Maxim Interlok Knee Primary Lock Bar - [id number] Implanted:Qty: 1 on 10/22/2017 by Darrell Carolina MD at [facility] Explanted:Qty: 1 on 11/03/2017 by Darrell Carolina MD at [facility] [employer] [id number] 09/28/2027 [id number] / / [id number] Bearing Tibial Vanguard Porous L71/75 Mm X H14 Mm Knee Posterior Stabilize Plus Direct Compression Mold - [id number] Implanted:Qty: 1 on 10/22/2017 by Darrell Carolina MD at [facility] Explanted:Qty: 1 on 11/03/2017 by Darrell Carolina MD at [facility] [employer] [id number] 2022 [id number] / / [id number] Procedures Procedure Name Priority Date/Time Associated Diagnosis Comments PAIN MGMT IMAGING SHOULDER, HIP, KNEE JOINT/BURSA INJ LEFT Schedule Routine, Read Routine (OP Routine) 10/04/2024 11:48 AM SALES ATTENDANT Arthritis of left hip from Last 3 Months Results * Imaging Shoulder, Hip, Knee Joint/Bursa INJ Left () (10/04/2024 11:48 AM SALES ATTENDANT) Narrative RAD_PACS_CH - 10/04/2024 11:49 AM SALES ATTENDANT The images from this study are not interpreted by Radiology. Please refer to the physician's procedure / OR operative note. Edwin Rodarte SATELLITE DISH REPAIRER IMG PAIN MGMT PROCEDURES F inal Result RAD_PACS_CH from Last 3 Months Insurance [facility] MEDICARE COMMERCIAL GENERIC [facility] INSURANCE [facility] Advance Directives For more information, please contact: [phone] * Full Code (Latest Code Status on File) Date Activated Date Inactivated Comments 12/22/2017 7:19 PM 12/26/2017 8:14 PM * Full Code Date Activated Date Inactivated Comments 11/03/2017 4:18 PM 11/05/2017 5:27 PM * Full Code Date Activated Date Inactivated Comments 11/02/2017 4:03 PM 11/03/2017 4:18 PM * Full Code Date Activated Date Inactivated Comments 10/22/2017 5:02 PM 10/25/2017 6:00 PM * Full Code Date Activated Date Inactivated Comments 10/21/2017 4:08 PM 10/22/2017 5:02 PM Care Teams Director Of Student Aid Relationship Specialty Start Date End Date Meir Mendoza MD [address] [address] PCP - General 06/04/16 Zuleyka Motta MD [address] [id number] Consulting Physician Infectious Diseases 10/25/17 [place] [id number] [address] Surgeon Orthopedic Surgery 10/25/17 [place] [id number] [facility] [address] [place] [address] Consulting Physician Internal Medicine 01/20/18 [place] [id number] [facility] [address] [place] [address] Nurse Practitioner Nurse Practitioner 09/18/24
--- OUTSIDE RECORDS SUMMARY | 2024-11-01 16:26 | XMS_ITS | CONTINUITY OF CARE DOCUMENT ---
Author Name hiram sandradave Address Unknown Organization [facility] Address [address] [place] [address] Phone [phone] Care Team Providers Care Emergency Department Rn Name Role Phone Scar WALEKR, Lev Unavailable [phone] SORAIDA KEYS MD Unavailable SORAIDA KEYS MD Unavailable [phone] PROBLEMS Condition Status Date Provider Notes Chest pain-type to be determined active Jolene Nieto NP Carotid artery disease active Levjavi Mckay Palpitations active Lev Abbott MD Family Hx heart disease active Lev Abbott MD Hypertension active ? Lev Abbott MD Hyperlipidemia active ? Lev Abbott MD ENCOUNTERS Date Type Provider Location Encounter Diag nosis 8 - 8 In-person encounter Office Visit Lev Abbott MD [facility] 4 - 6 In-person encounter Office Visit Lev Abbott MD [facility] Chest pain-type to be determined 2 - 2 In-person encounter Office Visit Lev Abbott MD [facility] HyperlipidemiaHypertensionFamily Hx heart diseasePalpitationsCarotid artery disease VITAL SIGNS Date Observation Value Provider Body Mass Index (Ratio) 31.15 kg/m2 Keke Abbott MD blood pressure, diastolic 81 mm[Hg] Rh onda Sri blood pressure, systolic 129 mm[Hg] Rho nda Sri oxygen saturation, oximetry 97 % Carmen Sri pulse rate 72 /min Carmen Fierro respiratory rate E&M 18 /min Carmen Sri weight E&M 193 [lb_av] Carmen Fierro blood pressure, resting Yes Ulicesn fernanda Sri blood pressure, cuff size regular Rh anup Sri height E&M 66 [in_i] Carmen Fierro Body Mass Index (Ratio) 31.47 kg/m2 Sund javi Abbott MD blood pressure, cuff size regular Gilbert linton Ava blood pressure, diastolic 70 mm[Hg] Gilbert josé Ava blood pressure, systolic 120 mm[Hg] Coby manav Ava oxygen saturation, oximetry 95 % María Ava pulse rate 75 /min María Ava respiratory rate E&M 18 /min María Ava weight E&M 195 [lb_av] María Monroeby height E&M 66 [in_i] aMría Monroeby Body Mass Index (Ratio) 29.53 kg/m2 Chantal kurtz Charles blood pressure, diastolic, left arm 100 m m[Hg] Beatriz Soto blood pressure, systolic, left arm 142 mm [Hg] Beatriz Soto blood pressure, diastolic, right arm 98 m m[Hg] Beatriz Soto blood pressure, systolic, right arm 142 m m[Hg] Beatriz Soto blood pressure, diastolic 100 mm[Hg] La maci Charles blood pressure, systolic 142 mm[Hg] Latoya blanca Charles pulse rate 80 /min Beatriz Soto oxygen saturation, oximetry 96 % Beatriz Soto respiratory rate E&M 16 /min Beatriz Soto weight E&M 183 [lb_av] Beatriz Soto height E&M 66 [in_i] Beatriz Charles ALLERGIES Allergy Name Onset Date Reaction Criticality Status PENICILLIN Low Criticality active HISTORY OF MEDICATION USE Medication Status Instructions Dates Provider Indications Com ments B COMPLEX ORAL TABLET active take one tablet by mouth once daily María Escalante LASIX 20 MG ORAL TABLET active take one tablet by mouth as needed María Escalante ZYRTEC ALLERGY 10 MG ORAL TABLET active take one tablet by mouth once daily María Escalante TURMERIC 500 MG ORAL TABLET active take one tablet by mouth once daily María Escalante VALACYCLOVIR HCL 500 MG ORAL TABLET active TAKE 1 CAPLET BY MOUTH ONCE DAILY María Escalante #90, 90 days supply, Prescribed by DEANNA SAXENA, Filled 07/30/2020 CEPHALEXIN 500 MG ORAL CAPSULE active TAKE 1 CAPSULE BY MOUTH EVERY 12 HOURS María Escalante #180, 90 days supply, Prescribed by SORAIDA KEYS, Filled 10/15/2020 TRIAMTERENE-HCTZ 37.5-25 MG ORAL TABLET active TAKE 1 TABLET BY MOUTH IN THE MORNING María Escalante #90, 90 days supply, Prescribed by SORAIDA KEYS, Filled 06/05/2020 ALPRAZOLAM 0.25 MG ORAL TABLET active TAKE 1 2 (ONE HALF) TABLET BY MOUTH THREE TIMES DAILY NEEDED FOR ANXIETY María Escalante #45, 30 days supply, Prescribed by SORAIDA KEYS, Filled 10/02/2020 LISINOPRIL 10 MG ORAL TABLET completed TAKE 1 TABLET BY MOUTH ONCE DAILY - Carmen Fierro #90, 90 days supply, Prescribed by SORAIDA KEYS, Filled 10/07/2020 PRAVASTATIN SODIUM 40 MG ORAL TABLET active ONE TAB. DAILY Lev Abbott MD LISINOPRIL-HYDRO CHLOROTHIAZIDE 10-12.5 MG ORAL TABLET completed once daily - María Escalante MELOXICAM 15 MG ORAL TABLET active once daily Beatriz Soto ALLOPURINOL 100 MG ORAL TABLET active take one tablet by [facility] twice daily María Escalante ESTRADIOL 1 MG ORAL TABLET active once daily Beatriz Soto DYAZIDE 37.5-25 MG ORAL CAPSULE completed once daily - Danielle Nieto NP VITAMIN D-3 5000 UNIT ORAL TABS active three times a month Beatriz Soto ASPIR-81 81 MG ORAL TABLET DELAYED RELEASE active once daily Beatriz Soto SOCIAL HISTORY Date Observation Value Provider smoking status Former smoker Carmen Fierro social history E&M Patient is a former smoker. Smoking History: Richard sanz is a former smoker. Richard sanz has been counseled to quit. Lev Abbott MD smoking/tobacco cess ation, patient education and counseling yes Lev Abbott MD social history reviewed E&M kat rodriguez - no changes required Lev Abbott MD number of years as a smoker 9 a Beatriz Soto smoking history, total pack/day 1 1/2 Beatriz Soto smoking, year quit 1979 Beatriz Clements chica cigarette use yes Beatriz Soto smoking status Former smoker Lev Abbott MD FAMILY HISTORY Family Member Condition Father Family History of Co ronary Artery Disease: Father Family History of Hy pertension: Mother Family History of Co ngestive Heart Failure: Mother Family History of Hy pertension: INSURANCE PROVIDERS Payer name Policy type / Coverage type [place] [employer] party ID [email or web address] Commercial insura [employer] [id number] [place] MEDICARE PART B Medicare [id number] TREATMENT PLAN Date Name Performer Cardiology:mild carotid plaquein g (50%) bilateral Danielle Nieto NP Cardiology: H er updated medication list for this problem includes: Pravastatin Sodium 40 Mg Oral Tablet (Pravastatin sodium) ..... One tab. daily Danielle Nieto NP Cardiology:periodically palpitat ions Danielle Nieto NP Cardiology:Her BP wa s running low, and she was monitoring her BP daily and PCP took her off the lisinopril BP today: 129/81 P rior BP: 120/70 (10/23/2020) Danielle Nieto NP Cardiology:No furthe r episodes of the chest discomfort normal Stress test 11/08/20 Danielle Nieto RECONSTRUCTIVE DENTIST Cardiology:last stre ss echo was 2014 - no echocardiographic evidence of ischemia W ill have stress nuclear test Lev Abbott MD Cardiology: H er updated medication list for this problem includes: Pravastatin Sodium 40 Mg Oral Tablet (Pravastatin sodium) ..... One tab. daily Danielle Nieto BRIANDA Cardiology: B P today: 120/70 P rior BP: 142/100 (04/03/2015) The following medications were removed from the medication list: Lisinopril-hydrochlorothiazide 10-12.5 Mg Oral Tablet (Lisinopril-hydrochlorothiazide) ..... Once daily Her updated medication list for this problem includes: Lasix 20 Mg Oral Tablet (Furosemide) ..... Take one tablet by mouth as needed Triamterene-hctz 37.5-25 Mg Oral Tablet (Triamterene-hctz) ..... Take 1 tablet by mouth in the morning Lisinopril 10 Mg Oral Tablet (Lisinopril) ..... Take 1 tablet by mouth once daily Dyazide 37.5-25 Mg Oral Capsule (Triamterene-hctz) ..... Once daily Aspir-81 81 Mg Oral Tablet Delayed Release (Aspirin) ..... Once daily Danielle Nieto BRIANDA Cardiology:last stre ss echo was 2014 - no echocardiographic evidence of ischemia T he following medications were removed from the medication list: Lisinopril-hydrochlorothiazide 10-12.5 Mg Oral Tablet (Lisinopril-hydrochlorothiazide) ..... Once daily Her updated medication list for this problem includes: Lisinopril 10 Mg Oral Tablet (Lisinopril) ..... Take 1 tablet by mouth once daily Aspir-81 81 Mg Oral Tablet Delayed Release (Aspirin) ..... Once daily Will have stress nuclear test Danielle Nieto BRIANDA Cardiology- lttr fxd :10/2014 -Total cholesterol 179, Trig 135, HDl 58, LDL 94 w ill increase pravachol to 40mg Lev Abbott MD Cardiology- lttr fxd :12.7% ASCVD risk C T chest coronary calcium score C ORUS CAD is one option Lev Abbott MD Cardiology- lttr fxd:mild caroti d plaqueing (<50%) b/l Lev Abbott MD Cardiology- lttr fxd :. She reports palpitations, described as 'thumping', lasts for few seconds, occurs more often if she feels stressed. Sometimes occurs multiple times in a day, sometimes doesn't occur for several weeks. likely PACs or PVCs E KG looks ok today w ill leave alone for now Lev Abbott MD Date Name Stress Regadenoson HISTORY OF PROCEDURES Procedure Date Procedure Name Provider Procedure Notes S tatus EKG Lev Abbott MD completed EKG Lev Abbott MD completed
--- OUTSIDE RECORDS SUMMARY | 2024-11-01 16:26 | XMS_ITS | Clinical Summary ---
Author Organization [facility] Chief Trunk Address [address] [place] [address] Care Team Providers Care Extraction Operator Name Role Phone Unavailable Primary Care Provider Unavailabl e Source Comments [facility],non-owned Affiliates and Associated Physician Practices is amultiple site organization consisting of ambulatory clinics and hospital sitesin [place], [place] and [place]. This disclosure is being madepursuant to the Care Everywhere program and may not contain all information available regarding this patient. Last updated 18.[facility] Allergies Active Allergy Reactions Criticality Noted Date Comments Codeine Nausea and/or Vomiting 07/17/2016 Penicillins Urticaria Medium 07/17/2016 Medications * Be aware that medications may not be up to date on this document. Alwaysverify current medications with the patient. Medication Sig Dispensed Refills Start Date End Date Status aspirin (ASPIRIN) 81 MG chew tablet Take 81 mg by mouth once daily Active allopurinol (ZYLOPRIM) 100 MG tablet Take 100 mg by mouth once daily Active meloxicam (MOBIC) 15 MG tablet Take 15 mg by mouth once daily Active lisinopril (PRINIVIL; ZESTRIL) 10 MG tablet Take 10 mg by mouth once daily Active triamterene-hydroCHLORO thiazide (MAXZIDE-25) 37.5-25 MG tablet Take 1 Tab by mouth once daily Active Active Problems No known active problems Family History Medical History Relation Name Comments Cancer Sister Cancer - Other Sister Relation Name Status Comments Sister Social History Tobacco Use Types Packs/Day Years Used Date Smoking Tobacco: Former Cigarettes Q uit: 08/02/1978 Alcohol Use Standard Drinks/Week Comments No 0 (1 standard drink = 0.6 oz pur e alcohol) Sex and Gender Information Value Date Recorded Sex Assigned at Not on file Gender Identity Not on file Sexual Orientation Not on file Last Filed Vital Signs Vital Sign Reading Time Taken Comments Blood Pressure 125/67 07/17/2016 1:40 PM ENDOSCOPY RN Pulse 75 07/17/2016 1:40 PM ENDOSCOPY RN Temperature 36.1 C (97 F) 07/17/2016 1:30 PM ENDOSCOPY RN Respiratory Rate 16 07/17/2016 1:40 PM ENDOSCOPY RN Oxygen Saturation 95% 07/17/2016 1:40 PM ENDOSCOPY RN Inhaled Oxygen Concentration - - Weight 85.3 kg (188 lb) 07/17/2016 12:09 PM ENDOSCOPY RN Height 167.6 cm (5' 6 ) 07/17/2016 12:09 PM ENDOSCOPY RN Body Mass Index 30.34 07/17/2016 12:09 PM ENDOSCOPY RN Plan of Treatment Health Maintenance Due Date Last Done Comments BONE DENSITY TESTING 1950 COLOGUARD (AGES 45-75) - COL ON CA SCREENING 1950 CT COLONOGRAPHY - COLON CA SCREENING 1950 FIT - COLON CA SCREENING 1950 FLEX SIG - COLON CA SCREENING 1950 LIPID TESTING 1950 MAMMOGRAM 1950 MEDICARE AWV 12 MONTHS 1950 HEPATITIS C SCREENING 05/13/1969 DTAP/TDAP/TD VACCINES (1 - Tdap) 1970 PNEUMOCOCCAL VACCINE 50+ (1 of 1 - PCV) 2001 ZOSTER VACCINE (1 of 2) 2001 COVID-19 VACCINE ( - 2023-2 5 season) 2024 INFLUENZA VACCINE (#1) 2024 DEPRESSION SCREENING 08/02/2024 Respiratory Syncytial Virus (RSV) Vaccine Pt: or over 60 yrs (1 - 1-dose 75+ series) 2026 COLON MONITORING 07/17/2026 07/17/2016, 07/17/2016 COLONOSCOPY - COLON CA SCREENING 07/17/2026 07/17/2016, 07/17/2016 Colorectal Cancer Screening 07/17/2026 HEPATITIS B VACCINE Aged Out No longe r eligible based on patient's age to complete this topic HIB VACCINE Aged Out No longer eligi ble based on patient's age to complete this topic HPV VACCINE Aged Out No longer eligi ble based on patient's age to complete this topic MENINGOCOCCAL (Group B) VACCINE SHARED DECISION-MAKING Aged Out No longer eligible based on patient's age to complete this topic MENINGOCOCCAL GROUPS A/C/Y/W VACCINE Aged Out No longer eligible b ased on patient's age to complete this topic Procedures Procedure Name Priority Date/Time Associated Diagnosis Comments ENDOSCOPY, COLON, SCREENING Routine 07/17/2016 12:39 PM ENDOSCOPY RN from Last 3 Months or Most Recently Relevant to Health Maintenance Results * ENDOSCOPY, COLON, SCREENING (07/17/2016 12:39 PM ENDOSCOPY RN) Report Endoscopy POC _ Patient Name: Evelyn Matthews Procedure Date: 07/17/2016 12:39 PM Date of : 1950 Admit Type: Outpatient Age: 66 Gender: Female Attending MD: Silvano Lucero DO _ Procedure: Colonoscopy Indications: Chronic diarrhea, Follow-up of microscopic colitis Providers: Silvano Lucero DO (Doctor) Referring MD: Meir Mendoza MD (Referring MD) Medicines: See the Anesthesia note for documentation of the administered medications Complications: No immediate complications. _ Procedure: Pre-Anesthesia Assessment: - ASA Grade Assessment: II - A patient with mild systemic disease. After I obtained informed consent, the scope was passed under direct vision. Throughout the procedure, the patient's blood pressure, pulse, and oxygen saturations were monitored continuously. The Colonoscope was introduced through the anus and advanced to the cecum, identified by the appendiceal orifice, IC valve and transillumination . The colonoscopy was performed without difficulty. The patient tolerated the procedure well. The quality of the bowel preparation was good. Findings: The perianal and digital rectal examinations were normal. A patchy area of mildly erythematous mucosa was found in the entire colon. Biopsies for histology were taken with a cold forceps from the ascending colon, transverse colon, sigmoid colon and rectosigmoid colon for evaluation of microscopic colitis. Non-bleeding internal hemorrhoids were found during retroflexion. The hemorrhoids were small. _ Impression: - Erythematous mucosa in the entire examined colon. Biopsied. - Non-bleeding internal hemorrhoids. Recommendation: - Discharge patient to home. - Await pathology results. - Telephone my office for pathology results in 1 week. - The findings and recommendations were discussed with the patient. - May start a 5 ASA Procedure Code(s): --- Professional --- 52122, Colonoscopy, flexible; with biopsy, single or multiple --- Technical --- 52756, Colonoscopy, flexible; with biopsy, single or multiple Diagnosis Code(s): --- Professional --- K63.89, Other specified diseases of intestine K64.8, Other hemorrhoids K52.9, Noninfective gastroenteritis and colitis, unspecified K52.89, Other specified noninfective gastroenteritis and colitis --- Technical --- K63.89, Other specified diseases of intestine K64.8, Other hemorrhoids K52.9, Noninfective gastroenteritis and colitis, unspecified K52.89, Other specified noninfective gastroenteritis and colitis CPT copyright 2015 [employer]. All rights reserved. The codes documented in this report are preliminary and upon remote inpatient coder review may be revised to meet current compliance requirements. ___ Silvano Lucero DO 07/17/2016 1:35:06 PM This report has been signed electronically. Number of Addenda: 0 Note Initiated On: 07/17/2016 12:39 PM [facility] END[facility] 07/17/2016 12:3 9 PM ENDOSCOPY RN Silvano Lucero DO GI PROCEDURE ORDER [facility] [place] [address] from Last 3 Months or Most Recently Relevant to Health Maintenance
--- OUTSIDE RECORDS SUMMARY | 2024-11-01 16:26 | XMS_ITS | Referral Summary ---
Author Organization [facility] Physician Office Building [address] [place] [address] Care Team Providers Care Concrete Mixing Truck Driver Name Role Phone Meir Mendoza MD Primary Care Provider [phone] Zuleyka Motta MD Unavailable Darrell Carolina MD Unavailable Lenin Rasmussen MD Unavailable [phone]- [phone] Edwin Rodarte NP Unavailable [phone] Encounters Date Type Department Care Team Description 10/26/2024 11:00 AM CDT - 10/26/2024 11:59 PM CDT Hospital Encounter [facility] [address] [place] [id number] Edwin Rodarte NP Arthritis of left hip (Primary Dx); Trochanteric bursitis of left hip Discharge Disposition: Discharge to home or self care 10/04/2024 11:00 AM EMERY WHEEL WORKER - 10/04/2024 11:59 PM EMERY WHEEL WORKER Hospital Encounter [facility] [address] [place] [address] [phone] Otto Castorena MD Arthritis of left hip Discharge Disposition: Discharge to home or self care 09/18/2024 10:01 AM EMERY WHEEL WORKER - 09/18/2024 11:59 PM EMERY WHEEL WORKER Hospital Encounter [facility] [address] [place] [address] Edwin Rodarte NP Arthritis of left hip (Primary Dx); Arthritis of knee, left; Trochanteric bursitis of left hip Discharge Disposition: Discharge to home or self care from Last 3 Months Allergies Active Allergy Reactions Criticality Noted Date [...] left hip 04/17/2024 Sacroiliitis, not elsewhere classified 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 She has persistent weakness in the arm. She is likely have some associated pain with limited range of motion unless the rotator cuff is repaired. Reattaching the rotator cuff generally provides the best relief of pain range of motion hindu as well as function over non operative [...] proceed. Assessment & Plan (06/08/2019 11:43 AM EMERY WHEEL WORKER): By exam the patient is likely to [...] like to have the knee subspecialist at [facility] take a look at her to see [...] 09/07/2017 Assessment & Plan (09/07/2017 4:05 PM EMERY WHEEL WORKER): The patient has most pronounced disc space [...] checkup Assessment & Plan (09/07/2017 4:03 PM EMERY WHEEL WORKER): Plain films of the right hip revealed [...] better Assessment & Plan (09/07/2017 4:05 PM EMERY WHEEL WORKER): A heel lift was provided for her [...] PRBC. Assessment & Plan (09/07/2017 4:10 PM EMERY WHEEL WORKER): Patient has chronic anemia with a baseline [...] x-rays Assessment & Plan (09/07/2017 4:03 PM EMERY WHEEL WORKER): Patient has end-stage arthritis of the left [...] patient. Assessment & Plan (07/06/2017 10:58 AM EMERY WHEEL WORKER): Patient was given a Synvisc injection through [...] to inadequate dietary iron intake 09/07/2017 8 Social History Tobacco Use Types Packs/Day Years [...] on file Legal Sex Female 12:44 PM EMERY WHEEL WORKER Gender Identity Female 03/20/2021 7:46 AM CDT Sexual Orientation Straight 03/20/2021 7: 46 AM CDT Occupation Industry Job Start Date Job End Date retired Not on file Not on file Not on file Last Filed Vital Signs Vital Sign Reading Time Taken Comments Blood Pressure 132/85 10/26/2024 11:21 AM CDT Pulse 64 10/26/2024 11:21 AM CDT Temperature 36.6 C (97.8 F) 10/04/2024 11:23 AM EMERY WHEEL WORKER Respiratory Rate 16 10/26/2024 11:21 AM CDT Oxygen Saturation 96% 10/26/2024 11:21 AM CDT Inhaled Oxygen Concentration - - Weight 79.2 kg (174 lb 9.6 oz) 04/17/2024 11:55 AM CDT Height 165.1 cm (5' 5 ) 04/17/2024 11:55 AM CDT Body Mass Index 29.05 04/17/2024 11:55 AM CDT Plan of Treatment Not on file Medical Devices Implanted Type Area Drawer In Stitch Bonding Machine Device Identifier Shelf Expiration Date Model / Serial / Lot Component Femoral Vanguard Interlok Cocr L65 Mm Knee Left Cemented Posterior Stabilize Open Box - [id number] Implanted:Qty: 1 on 09/29/2017 by Darrell Carolina MD at [facility] Left: Knee [employer] 09/23/2026 [id number] / / [id number] Tray Tibial Cocr L71 Mm Knee I Beam - [id number] Implanted:Qty: 1 on 09/29/2017 by Darrell Carolina MD at [facility] Left: Knee [employer] 05/28/2027 [id number] / / [id number] Component Patellar Ascent Arcom Od31 Mm Knee Anterior Posterior 1 Peg Wire - [id number] Implanted:Qty: 1 on 09/29/2017 by Darrell Carolina MD at [facility] Left: Patella [employer] 07/21/2022 [id number] / / [id number] Cement Bone Palacos R 40 Gm Green - [id number] Implanted:Qty: 1 on 09/29/2017 by Darrell Carolina MD at [facility] Left: Knee [employer] [id number] 01/29/2022 [id number] / / [id number] Bearing Tibial Vanguard Porous L71/75 Mm X H14 Mm Knee Posterior Stabilize Plus Direct Compression Mold - [id number] Implanted:Qty: 1 on 11/03/2017 by Darrell Carolina MD at [facility] Left: Knee Rcahel [employer] [id number] 09/28/2022 [id number] / / [id number] Component Tibial Tray Biomet Ascent Maxim Interlok Knee Primary Lock Bar - [id number] Implanted:Qty: 1 on 11/03/2017 by Darrell Carolina MD at [facility] Left: Knee [employer] [id number] 04/17/2026 [id number] / / [id number] Arthrex Inc [id number] Swivelock Tigerwire Arthrex 4.75mm 22mm 2 Load 2 Tip Retention - [id number] Implanted:Qty: 1 on 07/07/2019 by Darrell Carolina MD at [facility] Left: Shoulder [employer] 03/01/2021 [id number] / / [id number] Arthrex Inc [id number] Swivelock Tigerwire Arthrex 4.75mm 22mm 2 Load 2 Tip Retention - [id number] Implanted:Qty: 1 on 07/07/2019 by Darrell Carolina MD at [facility] Left: Shoulder [employer] 01/29/2021 [id number] / / [id number] Arthrex Inc Ar-2324bcctt Swivelock C 4.75mm 19.1mm Closed Eyelet Vent [place] Suture - [id number] Implanted:Qty: 1 on 07/07/2019 by Darrell Carolina MD at [facility] Left: Shoulder [employer] 08/01/2020 [id number] / / [id number] Ar[employer] Inc Ar-2324bcct Swivelock C 4.75mm 19.1mm Close Eyelet Tape Loop Vent [place] - [id number] Implanted:Qty: 1 on 07/07/2019 by Darrell Carolina MD at [facility] Left: Shoulder [employer] 08/01/2020 [id number]-[id number] / / [id number] Explanted Type Area Drawer In Stitch Bonding Machine Device Identifier Shelf Expiration Date Model / Serial / Lot Bearing Tibial Vanguard Porous L71/75 Mm X H14 Mm Knee Posterior Stabilize Plus Direct Compression Mold - [id number] Implanted:Qty: 1 on 09/29/2017 by Darrell Carolina MD at [facility] Explanted:Qty: 1 on 10/22/2017 at [facility] Left: Knee [employer] [id number] 01/09/2020 [id number] / / [id number] Component Tibial Tray Biomet Ascent Maxim Interlok Knee Primary Lock Bar - [id number] Implanted:Qty: 1 on 10/22/2017 by Darrell Carolina MD at [facility] Explanted:Qty: 1 on 11/03/2017 by Darrell Carolina MD at [facility] [employer] [id number] 09/28/2027 [id number] / / [id number] Bearing Tibial Vanguard Porous L71/75 Mm X H14 Mm Knee Posterior Stabilize Plus Direct Compression Mold - [id number] Implanted:Qty: 1 on 10/22/2017 by Darrell Carolina MD at [facility] Explanted:Qty: 1 on 11/03/2017 by Darrell Carolina MD at [facility] [employer] [id number] 2022 [id number] / / [id number] Procedures Procedure Name Priority Date/Time Associated Diagnosis Comments PAIN MGMT IMAGING SHOULDER, HIP, KNEE JOINT/BURSA INJ LEFT Schedule Routine, Read Routine (OP Routine) 10/04/2024 11:48 AM EMERY WHEEL WORKER Arthritis of left hip from Last 3 Months Results * Imaging Shoulder, Hip, Knee Joint/Bursa INJ Left () (10/04/2024 11:48 AM EMERY WHEEL WORKER) Narrative RAD_PACS_CH - 10/04/2024 11:49 AM EMERY WHEEL WORKER The images from this study are not interpreted by Radiology. Please refer to the physician's procedure / OR operative note. us Edwin Rodarte AUTOMATIC TOE LASTER IMG PAIN MGMT PROCEDURES F inal Result RAD_PACS_CH from Last 3 Months Insurance [facility] MEDICARE COMMERCIAL GENERIC [facility] [place] [id number] Advance Directives For more information, please contact: [phone] * Full Code (Latest Code Status on [...] 4:08 PM 10/22/2017 5:02 PM Care Teams Concrete Mixing Truck Driver Relationship Specialty Start Date End Date Meir Mendoza MD [address] [address] PCP - General 06/04/16 Zuleyka Motta MD [address] [address] Consulting Physician Infectious Diseases 10/25/17 [place] [address] [address] [facility] [address] [place] [address] Surgeon Orthopedic Surgery 10/25/17 [place] [address] [address] [facility] [address] [place] [address] Consulting Physician Internal Medicine 01/20/18 [place] [address] [facility] [address] [place] [address] Nurse Practitioner Nurse Practitioner 09/18/24
--- OUTSIDE RECORDS SUMMARY | 2024-11-01 16:26 | XMS_ITS | Continuity of Care Document ---
Author Organization [facility] Address [address] [place] [address] Phone Care Team Providers Care Proced Tech Name Role Phone Migue Rick MD Unavailable Unavailable Advance Directives Directive Yes / No Effective Date File Name No Information Encounters Encounter Description Practice Location Reason(s) For Visit Diagnoses Date Provider Providers Copied on Encounter [facility], [address], [place], [place], [id number], [place] tel:[phone] [facility] No Information Prabhjot Camarena. [address] , [place], [place], [id number], [place]. tel:[phone] Referring Provider: Lev Abbott, [address] [place] [address], [address]. tel:[phone] Family History Family Member Type Diagnosis Age [...]
== END ==
PROVIDERS: PCP Family Medicine; Visit Provider Family Medicine
DX: M41.86 Other forms of scoliosis, lumbar region (principal); M47.816 Spondylosis without myelopathy or radiculopathy, lumbar region; M54.42 Lumbago with sciatica, left side; G89.29 Other chronic pain
CPT/HCPCS: 72110

== ENCOUNTER 2025-01-04 09:57 | Outpatient (NON) | payer OTHER, SELFPAY ==
--- OUTSIDE RECORDS SUMMARY | 2025-01-04 10:52 | XMS_ITS | Clinical Summary ---
Author Organization [facility] Address [address] [place] [address] Care Team Providers Care Internal Grinder Set Up Operator Name Role Phone Unavailable Primary Care Provider Unavailabl e Source Comments [facility],non-owned Affiliates and Associated Physician Practices is amultiple site organization consisting of ambulatory clinics and hospital sitesin [place], [place], [place] and [place]. This disclosure is being madepursuant to the Care Everywhere program and may not contain all informatio navailable regarding this patient. Last updated 18.[facility] Allergies Active Allergy Reactions Criticality Noted Date Comments Codeine Nausea and/or Vomiting 07/17/2016 Penicillins Urticaria Medium 07/17/2016 Medications * Be aware that medications may not be up to date on this document. Alwaysverify current medications with the patient. aspirin (ASPIRIN) 81 MG chew tablet Take 81 mg by mouth once daily Active allopurinol (ZYLOPRIM) 100 MG tablet Take 100 mg by mouth once daily Active meloxicam (MOBIC) 15 MG tablet Take 15 mg by mouth once daily Active lisinopril (PRINIVIL; ZESTRIL) 10 MG tablet Take 10 mg by mouth once daily Active triamterene-hydr oCHLOROthiazide (MAXZIDE-25) 37.5-25 MG tablet Take 1 Tab [...] drink = 0.6 oz pur e alcohol) Comments No Sex and Gender Information Value Date Recorded Sex Assigned at Not on file Legal Sex Female 4:25 AM OYSTER GRADER Gender Identity Not on file Sexual Orientation Not on file Last Filed Vital Signs Vital Sign Reading Time Taken Comments Blood Pressure 125/67 07/17/2016 1:40 PM OYSTER GRADER Pulse 75 07/17/2016 1:40 PM OYSTER GRADER Temperature 36.1 C (97 F) 07/17/2016 1:30 PM OYSTER GRADER Respiratory Rate 16 07/17/2016 1:40 PM OYSTER GRADER Oxygen Saturation 95% 07/17/2016 1:40 PM OYSTER GRADER Inhaled Oxygen Concentration - - Weight 85.3 kg (188 lb) 07/17/2016 12:09 PM OYSTER GRADER Height 167.6 cm (5' 6) 07/17/2016 12:09 PM OYSTER GRADER Body Mass Index 30.34 07/17/2016 12:09 PM OYSTER GRADER Plan of Treatment Health Maintenance Due Date Last Done Comments BONE DENSITY TESTING 1950 COLOGUARD (AGES 45-75) - COL ON CA SCREENING 1950 CT COLONOGRAPHY - COLON CA SCREENING 1950 FIT - COLON CA SCREENING 1950 FLEX SIG - COLON CA SCREENING 1950 LIPID TESTING 1950 MAMMOGRAM 1950 HEPATITIS C SCREENING 05/13/1969 DTAP/TDAP/TD VACCINES (1 - Tdap) 1970 PNEUMOCOCCAL VACCINE 50+ (1 of 1 - PCV) 2001 ZOSTER VACCINE (1 of 2) 2001 COVID-19 VACCINE ( - 2023-2 5 season) 2024 DEPRESSION SCREENING 08/02/2024 INFLUENZA VACCINE (Season Ended) 2025 Respiratory Syncytial Virus (RSV) Vaccine Pt: or [...] ENDOSCOPY, COLON, SCREENING Routine 07/17/2016 12:39 PM OYSTER GRADER from Last 3 Months or Most Recently Relevant to Health Maintenance Results * ENDOSCOPY, COLON, SCREENING (07/17/2016 12:39 PM OYSTER GRADER) Report Endoscopy POC _ Patient Name: Evelyn [...] 5 ASA Procedure Code(s): --- Professional --- 82710, Colonoscopy, flexible; with biopsy, single or multiple --- Technical --- 97827, Colonoscopy, flexible; with biopsy, single or multiple Diagnosis Code(s): --- Professional --- K63.89, Other specified diseases of intestine K64.8, Other hemorrhoids K52.9, Noninfective gastroenteritis and colitis, unspecified K52.89, Other specified noninfective gastroenteritis and colitis --- Technical --- K63.89, Other specified diseases of intestine K64.8, Other hemorrhoids K52.9, Noninfective gastroenteritis and colitis, unspecified K52.89, Other specified noninfective gastroenteritis and colitis CPT copyright 2015 [employer]. All rights reserved. The codes documented in this report are preliminary and upon turbine subassembler review may be revised to meet current compliance requirements. ___ Silvano Lucero DO 07/17/2016 1:35:06 PM This report has been signed electronically. Number of Addenda: 0 Note Initiated On: 07/17/2016 12:39 PM [facility] 07/17/2016 12:3 9 PM OYSTER GRADER Silvano Lucero DO GI PROCEDURE ORDERABLES Ed ited Result - Final [facility] [place] [address] from Last 3 Months or Most Recently Relevant to Health Maintenance Insurance MEDICARE COMMERCIAL GENERIC of [facility] Address: [address] [address] [place] [address] MEDICARE
--- OUTSIDE RECORDS SUMMARY | 2025-01-04 10:52 | XMS_ITS | Referral Summary ---
Author Organization [facility] Physician Office Building [address] [place] [address] Care Team Providers Care Hardware Test Engineer Name Role Phone Meir Mendoza MD Primary Care Provider [phone] Zuleyka Motta MD Unavailable Darrell Carolina MD Unavailable Lenin Rasmussen MD Unavailable [phone]- [phone] Edwin Rodarte NP Unavailable [phone] Encounters Date Type Department Care Team Description 10/26/2024 11:00 AM CDT - 10/26/2024 11:59 PM CDT Hospital Encounter [facility] [address] [place] [phone] Edwin Rodarte NP Arthritis of left hip (Primary Dx); Trochanteric bursitis of left hip Discharge Disposition: Discharge to home or self care 10/04/2024 11:00 AM HAND RIVETER - 10/04/2024 11:59 PM HAND RIVETER Hospital Encounter [facility] [address] [place] [phone] Otto Castorena MD Arthritis of left hip [...] intervention Assessment & Plan (06/15/2019 5:11 PM HAND RIVETER): Patient has a full-thickness tear with retraction of the supraspinatus and infraspinatus by MRI of her left shoulder. She has persistent weakness in the arm. She is likely have some associated pain with limited range of motion unless the rotator cuff is repaired. Reattaching the rotator cuff generally provides the best relief of pain range of motion mandaeism as well as function over non operative [...] proceed. Assessment & Plan (06/08/2019 11:43 AM HAND RIVETER): By exam the patient is likely to [...] 09/07/2017 Assessment & Plan (09/07/2017 4:05 PM HAND RIVETER): The patient has most pronounced disc space [...] checkup Assessment & Plan (09/07/2017 4:03 PM HAND RIVETER): Plain films of the right hip revealed [...] better Assessment & Plan (09/07/2017 4:05 PM HAND RIVETER): A heel lift was provided for her [...] PRBC. Assessment & Plan (09/07/2017 4:10 PM HAND RIVETER): Patient has chronic anemia with a baseline [...] x-rays Assessment & Plan (09/07/2017 4:03 PM HAND RIVETER): Patient has end-stage arthritis of the left [...] patient. Assessment & Plan (07/06/2017 10:58 AM HAND RIVETER): Patient was given a Synvisc injection through a sterile field. 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 Family history of ischemic h eart disease and other diseases of the circulatory system 04/03/2015 Palpitations 04/03/2015 Resolved Problems Problem Noted Date Diagnosed Date Resolved Date Iron deficiency anemia secjanelle joey to inadequate dietary iron intake 09/07/2017 8 [...] on file Legal Sex Female 12:44 PM HAND RIVETER Gender Identity Female 03/20/2021 7:46 AM CDT [...] 36.6 C (97.8 F) 10/04/2024 11:23 AM HAND RIVETER Respiratory Rate 16 10/26/2024 11:21 AM CDT Oxygen Saturation 96% 10/26/2024 11:21 AM CDT Inhaled Oxygen Concentration - - Weight 79.2 kg (174 lb 9.6 oz) 04/17/2024 11:55 AM CDT Height 165.1 cm (5' 5) 04/17/2024 11:55 AM CDT Body Mass Index 29.05 04/17/2024 11:55 AM CDT Plan of Treatment Not on file Medical Devices Implanted Type Area Assisted Living Director Device Identifier Shelf Expiration Date Model / Serial / Lot Component Femoral Vanguard Interlok Cocr L65 Mm Knee Left Cemented Posterior Stabilize Open Box - [id number] Implanted:Qty: 1 on 09/29/2017 by Darrell Carolina MD at [facility] Left: Knee [employer] 09/23/2026 [id number] / / [id number] Tray Tibial Cocr L71 Mm Knee I Beam - [id number] Implanted:Qty: 1 on 09/29/2017 by Darrell Carolina MD at [facility] Left: Knee [employer] 05/28/2027 [id number] / / [id number] Component Patellar Ascent Arcom Od31 Mm Knee Anterior Posterior 1 Peg Wire - [id number] Implanted:Qty: 1 on 09/29/2017 by Darrell Carolina MD at [facility] Left: Patella [employer] 07/21/2022 [id number] / / [id number] Cement Bone Palacos R 40 Gm Green - [id number] Implanted:Qty: 1 on 09/29/2017 by Darrell Carolina MD at [facility] Left: Knee [employer] [id number] 01/29/2022 [id number] / / [id number] Bearing Tibial Vanguard Porous L71/75 Mm X H14 Mm Knee Posterior Stabilize Plus Direct Compression Mold - [id number] Implanted:Qty: 1 on 11/03/2017 by Darrell Carolina MD at [facility] Left: Knee [employer] [id number] 09/28/2022 [id number] / / [id number] Component Tibial Tray Biomet Ascent Maxim Interlok Knee Primary Lock Bar - [id number] Implanted:Qty: 1 on 11/03/2017 by Darrell Carolina MD at [facility] Left: Knee [employer] [id number] 04/17/2026 [id number] / / [id number] Arthrex Inc [id number] Swivelock Tigerwire Arthrex 4.75mm 22mm 2 Load 2 Tip Retention - [id number] Implanted:Qty: 1 on 07/07/2019 by Darrell Carolina MD at [facility] Left: Shoulder [employer] 03/01/2021 [id number] / / [id number] Ar[employer] [id number] Swivelock Tigerwire Arthrex 4.75mm 22mm 2 Load 2 Tip Retention - [id number] Implanted:Qty: 1 on 07/07/2019 by Darrell Carolina MD at [facility] Left: Shoulder [employer] 01/29/2021 [id number]-8 / / [id number] Ar[employer] Ar-2324bcctt Swivelock C 4.75mm 19.1mm Closed Eyelet Vent [place] Suture - [id number] Implanted:Qty: 1 on 07/07/2019 by Darrell Carolina MD at [facility] Left: Shoulder [employer] 08/01/2020 [id number] / / [id number] [employer] Ar-2324bcct Swivelock C 4.75mm 19.1mm Close Eyelet Tape Loop Vent [place] - [id number] Implanted:Qty: 1 on 07/07/2019 by Darrell Carolina MD at [facility] Left: Shoulder [employer] 08/01/2020 AR-2324BCCT / / [id number] Explanted Type Area Assisted Living Director Device Identifier Shelf Expiration Date Model / Serial / Lot Bearing Tibial Vanguard Porous L71/75 Mm X H14 Mm Knee Posterior Stabilize Plus Direct Compression Mold - [id number] Implanted:Qty: 1 on 09/29/2017 by Darrell Carolina MD at [facility] Explanted:Qty: 1 on 10/22/2017 at [facility] Left: Knee [employer] [id number] 01/09/2020 [id number] / / [id number] Component Tibial Tray Biomet Ascent Maxim Interlok Knee Primary Lock Bar - [id number] Implanted:Qty: 1 on 10/22/2017 by Darrell Carolina MD at [facility] Explanted:Qty: 1 on 11/03/2017 by Darrell Carolina MD at [facility] [employer] [id number] 09/28/2027 [id number] / / [id number] Bearing Tibial Vanguard Porous L71/75 Mm X H14 Mm Knee Posterior Stabilize Plus Direct Compression Mold - [id number] Implanted:Qty: 1 on 10/22/2017 by Darrell Carolina MD at [facility] Explanted:Qty: 1 on 11/03/2017 by Darrell Carolina MD at [facility] [employer] [id number] 2022 [id number] / / [id number] Procedures Procedure Name Priority Date/Time Associated Diagnosis Comments PAIN MGMT IMAGING SHOULDER, HIP, KNEE JOINT/BURSA INJ LEFT Schedule Routine, Read Routine (OP Routine) 10/04/2024 11:48 AM HAND RIVETER Arthritis of left hip from Last 3 Months Results * Imaging Shoulder, Hip, Knee Joint/Bursa INJ Left () (10/04/2024 11:48 AM HAND RIVETER) Narrative RAD_PACS_ - 10/04/2024 11:49 AM HAND RIVETER The images from this study are not interpreted by Radiology. Please refer to the physician's procedure / OR operative note. Edwin Rodarte NP IMG PAIN MGMT PROCEDURES F inal Result RAD_PACS_CH from Last 3 Months Insurance [facility] MEDICARE COMMERCIAL GENERIC [facility] INSURANCE [facility] Advance Directives For more information, please contact: [phone] * Full Code (Latest Code Status on [...] 4:08 PM 10/22/2017 5:02 PM Care Teams Hardware Test Engineer Relationship Specialty Start Date End Date Meir Mendoza MD [address] [address] PCP - General 06/04/16 Zuleyka Motta MD [address] [address] Consulting Physician Infectious Diseases 10/25/17 [place] [address] [address] [facility] [address] [place] [address] Surgeon Orthopedic Surgery 10/25/17 [place] [address] [address] [facility] [address] [place] [address] Consulting Physician Internal Medicine 01/20/18 [place] [address] [address] [facility] [address] [place] [address] Nurse Practitioner Nurse Practitioner 09/18/24
--- OUTSIDE RECORDS SUMMARY | 2025-01-04 10:52 | XMS_ITS | Continuity of Care Document ---
Author Organization [facility] Address [address] [place] [address] Phone Care Team Providers Care Erp Specialist Name Role Phone Migue Rick MD Unavailable Unavailable Advance Directives Directive Yes / No Effective Date File Name No Information Encounters Encounter Description Practice Location Reason(s) For Visit Diagnoses Date Provider Providers Copied on Encounter [facility], [address], [place], [place], [id number], [place] tel:[phone] [facility] No Information Prabhjot Camarena. [address] , [place], [place], [id number], [place]. tel:[phone] Referring Provider: Lev Abbott, [address] [place] [address], [address]. tel:[phone] Family History Family Member Type Diagnosis Age At Onset No Information Payers Payer name Insurance type Covered constitution party ID Authoriza tion(s) No Information Social History [...]
--- OUTSIDE RECORDS SUMMARY | 2025-01-04 10:52 | XMS_ITS | Clinical Summary ---
Author Organization [facility] Phys[facility] Building 2 Address [address] [place] [address] Care Team Providers Care Mechanical Meter Tester Name Role Phone Meir Mendoza MD Primary Care Provider [phone] Zuleyka Motta MD Unavailable Darrell Carolina MD Unavailable [phone] Lenin Rasmussen MD Unavailable [phone] Edwin Rodarte NP Unavailable Allergies Active Allergy [...] intervention Assessment & Plan (06/15/2019 5:11 PM PRESENTATION SPECIALIST): Patient has a full-thickness tear with retraction of the supraspinatus and infraspinatus by MRI of her left shoulder. She has persistent weakness in the arm. She is likely have some associated pain with limited range of motion unless the rotator cuff is repaired. Reattaching the rotator cuff generally provides the best relief of pain range of motion gnosticist as well as function over non operative [...] proceed. Assessment & Plan (06/08/2019 11:43 AM PRESENTATION SPECIALIST): By exam the patient is likely to [...] like to have the knee subspecialist at [facility] take a look at her to see [...] 09/07/2017 Assessment & Plan (09/07/2017 4:05 PM PRESENTATION SPECIALIST): The patient has most pronounced disc space [...] checkup Assessment & Plan (09/07/2017 4:03 PM PRESENTATION SPECIALIST): Plain films of the right hip revealed [...] better Assessment & Plan (09/07/2017 4:05 PM PRESENTATION SPECIALIST): A heel lift was provided for her [...] PRBC. Assessment & Plan (09/07/2017 4:10 PM PRESENTATION SPECIALIST): Patient has chronic anemia with a baseline [...] x-rays Assessment & Plan (09/07/2017 4:03 PM PRESENTATION SPECIALIST): Patient has end-stage arthritis of the left [...] patient. Assessment & Plan (07/06/2017 10:58 AM PRESENTATION SPECIALIST): Patient was given a Synvisc injection through [...] - 10/26/2024 11:59 PM CDT Hospital Encounter [facility] [address] [place] [address] Edwin Rodarte NP Arthritis of left hip (Primary Dx); Trochanteric bursitis of left hip Discharge Disposition: Discharge to home or self care 10/04/2024 11:00 AM PRESENTATION SPECIALIST - 10/04/2024 11:59 PM PRESENTATION SPECIALIST Hospital Encounter [facility] [address] [place] [address] Otto Castorena MD Arthritis of left hip [...] on file Legal Sex Female 12:44 PM PRESENTATION SPECIALIST Gender Identity Female 03/20/2021 7:46 AM CDT [...] 36.6 C (97.8 F) 10/04/2024 11:23 AM PRESENTATION SPECIALIST Respiratory Rate 16 10/26/2024 11:21 AM CDT [...] 1962 Well Visit 65+ 2016 Influenza Vaccine (Season Ended) 2025 04/21/2019, 05/12/2018, 04/28/2017, Additional history exists Fall Risk Assessment 10/26/2025 10/26/2024 Hepatitis B Screening Completed 11/21/2007, 008 Pneumococcal vaccine 65+ Completed 05/12/2018, 04/03 Zoster Vaccine Completed 09/18/2018, 05/12/2018 Medical Devices Implanted Type Area Heart Specialist Device Identifier Shelf Expiration Date Model / Serial / Lot Component Femoral Vanguard Interlok Cocr L65 Mm Knee Left Cemented Posterior Stabilize Open Box - [id number] Implanted:Qty: 1 on 09/29/2017 by Darrell Carolina MD at [facility] Left: Knee [employer]cel [employer] Inc 09/23/2026 [id number] / / [id number] Tray Tibial Cocr L71 Mm Knee I Beam - [id number] Implanted:Qty: 1 on 09/29/2017 by Darrell Carolina MD at [facility] Left: Knee [employer] 05/28/2027 [id number] / / [id number] Component Patellar Ascent Arcom Od31 Mm Knee Anterior Posterior 1 Peg Wire - [id number] Implanted:Qty: 1 on 09/29/2017 by Darrell Carolina MD at [facility] Left: Patella [employer] 07/21/2022 [id number] / / [id number] Cement Bone Palacos R 40 Gm Green - [id number] Implanted:Qty: 1 on 09/29/2017 by Darrell Carolina MD at [facility] Left: Knee [employer] [id number] 01/29/2022 [id number] / / [id number] Bearing Tibial Vanguard Porous L71/75 Mm X H14 Mm Knee Posterior Stabilize Plus Direct Compression Mold - [id number] Implanted:Qty: 1 on 11/03/2017 by Darrell Carolina MD at [facility] Left: Knee [employer] [id number] 09/28/2022 [id number] / / [id number] Component Tibial Tray Biomet Ascent Maxim Interlok Knee Primary Lock Bar - [id number] Implanted:Qty: 1 on 11/03/2017 by Darrell Carolina MD at [facility] Left: Knee [employer] [id number] 04/17/2026 [id number] / / [id number] Arthrex Inc [id number]-[id number] Swivelock Tigerwire Arthrex 4.75mm 22mm 2 Load 2 Tip Retention - [id number] Implanted:Qty: 1 on 07/07/2019 by Darrell Carolina MD at [facility] Left: Shoulder Ar[employer] Inc 03/01/2021 [id number] / / [id number] Arthrex Inc St-[id number] Swivelock Tigerwire Arthrex 4.75mm 22mm 2 Load 2 Tip Retention - [id number] Implanted:Qty: 1 on 07/07/2019 by Darrell Carolina MD at [facility] Left: Shoulder Ar[employer] Inc 01/29/2021 [id number] / / [id number] Arthrex Inc Ar-2324bcctt Swivelock C 4.75mm 19.1mm Closed Eyelet Vent Gibson Suture - [id number] Implanted:Qty: 1 on 07/07/2019 by Darrell Carolina MD at [facility] Left: Shoulder Ar[employer] Inc 08/01/2020 [id number] / / [id number] Ar[employer]rex Inc Ar-2324bcct Swivelock C 4.75mm 19.1mm Close Eyelet Tape Loop Vent Gibson - [id number] Implanted:Qty: 1 on 07/07/2019 by Darrell Carolina MD at [facility] Left: Shoulder Ar[employer] 08/01/2020 [id number] / / [id number] Explanted Type Area Heart Specialist Device Identifier Shelf Expiration Date Model / Serial / Lot Bearing Tibial Vanguard Porous L71/75 Mm X H14 Mm Knee Posterior Stabilize Plus Direct Compression Mold - [id number] Implanted:Qty: 1 on 09/29/2017 by Darrell Carolina MD at [facility] Explanted:Qty: 1 on 10/22/2017 at [facility] Left: Knee [employer] [id number] 01/09/2020 [id number] / / [id number] Component Tibial Tray Biomet Ascent Maxim Interlok Knee Primary Lock Bar - [id number] Implanted:Qty: 1 on 10/22/2017 by Darrell Carolina MD at [facility] Explanted:Qty: 1 on 11/03/2017 by Darrell Carolina MD at [facility] [employer] [id number] 09/28/2027 [id number] / / [id number] Bearing Tibial Vanguard Porous L71/75 Mm X H14 Mm Knee Posterior Stabilize Plus Direct Compression Mold - [id number] Implanted:Qty: 1 on 10/22/2017 by Darrell Carolina MD at [facility] Explanted:Qty: 1 on 11/03/2017 by Darrell Carolina MD at [facility] [employer] [id number] 2022 [id number] / / [id number] Procedures Procedure Name Priority Date/Time Associated Diagnosis Comments PAIN MGMT IMAGING SHOULDER, HIP, KNEE JOINT/BURSA INJ LEFT Schedule Routine, Read Routine (OP Routine) 10/04/2024 11:48 AM PRESENTATION SPECIALIST Arthritis of left hip from Last 3 Months Results * Imaging Shoulder, Hip, Knee Joint/Bursa INJ Left () (10/04/2024 11:48 AM PRESENTATION SPECIALIST) Narrative RAD_PACS_CH - 10/04/2024 11:49 AM PRESENTATION SPECIALIST The images from this study are not interpreted by Radiology. Please refer to the physician's procedure / OR operative note. us Edwin Rodarte NP IMG PAIN MGMT PROCEDURES F inal Result RAD_PACS_[facility] from Last 3 Months Insurance [facility] MEDICARE [place] [address] [place] [address] INSURANCE [facility] Advance Directives For more information, please contact: [phone] * Full Code (Latest Code Status on [...] 4:08 PM 10/22/2017 5:02 PM Care Teams Mechanical Meter Tester Relationship Specialty Start Date End Date Meir Mendoza MD [address] [address] PCP - General 06/04/16 Zuleyka Motta MD [address] [address] Consulting Physician Infectious Diseases 10/25/17 [place] [address] [facility] [address] [place] [address] Surgeon Orthopedic Surgery 10/25/17 [place] [address] [facility] [address] [place] [address] Consulting Physician Internal Medicine 01/20/18 [place] [address] [facility] [address] [place] [address] Nurse Practitioner Nurse Practitioner 09/18/24
--- OUTSIDE RECORDS SUMMARY | 2025-01-04 10:52 | XMS_ITS | CONTINUITY OF CARE DOCUMENT ---
Author Name hiram sandradave Address Unknown Organization [facility] Address [address] [address] [place] [address] Phone [phone] Care Team Providers Care Branch Banker Name Role Phone Sacr WALKER, Lev Unavailable [phone] SORAIDA KEYS MD Unavailable SORAIDA KEYS MD Unavailable PROBLEMS Condition Status Date Provider Notes Hyperlipidemia active ? Lev Abbott MD Hypertension active ? Levjavi Abbott MD Family Hx heart disease active Levjavi Abbott MD Palpitations active Levjavi Abbott MD Carotid artery disease active richard Mckay Chest pain-type to be determined active Jolene Nieto SLIDE MACHINE TENDER ENCOUNTERS Date Type Provider Location Encounter Diag nosis 8 - 8 In-person encounter Office Visit Lev Abbott MD [facility] 4 - 6 In-person encounter Office Visit Lev Abbott MD [facility] Chest pain-type to be determined 2 - 2 In-person encounter Office Visit Lev Abbott MD [facility] HyperlipidemiaHypertensionFamily Hx heart diseasePalpitationsCarotid artery disease [...] Ava oxygen saturation, oximetry 95 % María [place] pulse rate 75 /min María Ava respiratory rate E&M 18 /min María [place] weight E&M 195 [lb_av] María [place] height E&M 66 [in_i] María Monroeby Body Mass Index (Ratio) 29.53 kg/m2 Chantal kurtz Charles blood pressure, diastolic, left arm 100 m m[Hg] Beatriz Soto blood pressure, systolic, left arm 142 mm [Hg] Beatriz Soto blood pressure, diastolic, right arm 98 m m[Hg] Beatriz Soto blood pressure, systolic, right arm 142 m m[Hg] Beatriz Soto blood pressure, diastolic 100 mm[Hg] Oh maci Charles blood pressure, systolic 142 mm[Hg] [...] ORAL TABLET active take one tablet by [facility] twice daily María Escalante ESTRADIOL 1 [...] Payer name Policy type / Coverage type Jasper red libertarian ID [employer] Commercial insura [place] [employer] [id number] [place] MEDICARE PART B Medicare [id number] TREATMENT PLAN Date Name Performer Cardiology:mild carotid [...] discomfort normal Stress test 11/08/20 Danielle Nieto BRIANDA Cardiology:last stre ss echo [...]
== END 2025-01-04 09:58 | disposition home or self-care (01) ==
LOC: ANHLAB 09:57
PROVIDERS: PCP Family Medicine; Visit Provider Internal Medicine Gastroenterology
DX: R19.7 Diarrhea, unspecified (principal)
CPT/HCPCS: 87045; 87177; 87209; 87425; 87427; 87449

== ENCOUNTER 2025-01-11 12:43 | Outpatient (CLI) | payer OTHER, SELFPAY ==
--- NOTE | ~2025-01-11 | MR_ITS ---
MRI of the lumbar spine Clinical History: Back pain, left sciatica Technique: Axial T2-weighted images, and sagittal T1-weighted, T2-weighted, and and T2 fat-sat images were acquired. Following intravenous administration of 17 cc MultiHance gadolinium, T1-weighted fat- sat imaging was performed in the axial and sagittal planes. Findings: There is levoscoliosis. No fracture evident. There is minimal grade 1 retrolisthesis of L2 over L3. There is 3 mm retrolisthesis of L3 over L4. No suspicious bone marrow signal abnormality see n. At L1-L2, there is moderate degenerative disc narrowing. There is mild disc bulge and moderate facet arthropathy. No central canal stenosis or definite neural foraminal narrowing. At L2-L3, there is severe degenerative disc narrowing. There is minimal disc bulge with moderate cr re facet arthropathy. No central canal stenosis. There is preservation of the neural foramina. At L3-L4, there is moderate degenerative disc narrowing. There is diffuse disc bulge with moderate to advanced facet arthropathy. No kaitlin central canal stenosis. There is moderate left neural foraminal narrowing, and mild right neural foraminal narrowing. At L4-L5, there is diffuse disc bulge. There is severe facet arthropathy. There is a 1.5 cm mildly co mplex left synovial cyst, which effaces the left side of the thecal sac and results in severe left la teral recess stenosis. There is associated severe left neural foraminal narrowing and probable imping ement of the exiting left-sided nerve root at this level. Right neural foramen preserved. At L5-S1, there is mild disc bulge with severe facet arthropathy. No central canal stenosis. There is moderate to advanced bilateral neural foraminal narrowing. No suspicious contrast enhancement seen. Paravertebral soft tissues are unremarkable. Impression: Severe degenerative spondylosis at L4-L5, with with associated 1.5 cm left synovial cyst which severe ly narrows left neural foramen and impinges the exiting left-sided nerve root. Additional moderate degenerative changes in the lumbar spine, as above. Levoscoliosis. Reviewed, dictated and finalized at [facility]. Impression: Severe degenerative spondylosis at L4-L5, with with associated 1.5 cm left syno vial cyst which severely narrows left neural foramen and impinges the exiting l eft-sided nerve root. Additional moderate degenerative changes in the lumbar spine, as above. Levoscoliosis.
--- OUTSIDE RECORDS SUMMARY | 2025-01-11 13:09 | XMS_ITS | Clinical Summary ---
Author Organization [facility] Address [address] [place] [address] Care Team Providers Care Alumni Coordinator Name Role Phone Unavailable Primary Care Provider Unavailabl e Source Comments [facility],non-owned Affiliates and Associated Physician Practices is amultiple site organization consisting of ambulatory clinics and hospital sitesin [place], [place], [place] and [place]. This disclosure is being madepursuant to the Care Everywhere program and may not contain all informatio navailable regarding this patient. Last updated 18.[facility] Allergies Active Allergy Reactions Criticality Noted Date [...] on file Legal Sex Female 4:25 AM BOATBUILDER WOOD Gender Identity Not on file Sexual Orientation Not on file Last Filed Vital Signs Vital Sign Reading Time Taken Comments Blood Pressure 125/67 07/17/2016 1:40 PM BOATBUILDER WOOD Pulse 75 07/17/2016 1:40 PM BOATBUILDER WOOD Temperature 36.1 C (97 F) 07/17/2016 1:30 PM BOATBUILDER WOOD Respiratory Rate 16 07/17/2016 1:40 PM BOATBUILDER WOOD Oxygen Saturation 95% 07/17/2016 1:40 PM BOATBUILDER WOOD Inhaled Oxygen Concentration - - Weight 85.3 kg (188 lb) 07/17/2016 12:09 PM BOATBUILDER WOOD Height 167.6 cm (5' 6) 07/17/2016 12:09 PM BOATBUILDER WOOD Body Mass Index 30.34 07/17/2016 12:09 PM BOATBUILDER WOOD Plan of Treatment Health Maintenance Due Date [...] ENDOSCOPY, COLON, SCREENING Routine 07/17/2016 12:39 PM BOATBUILDER WOOD from Last 3 Months or Most Recently Relevant to Health Maintenance Results * ENDOSCOPY, COLON, SCREENING (07/17/2016 12:39 PM BOATBUILDER WOOD) Report Endoscopy POC _ Patient Name: Evelyn [...] 5 ASA Procedure Code(s): --- Professional --- 45129, Colonoscopy, flexible; with biopsy, single or multiple --- Technical --- 27196, Colonoscopy, flexible; with biopsy, single or multiple Diagnosis Code(s): --- Professional --- K63.89, Other specified diseases of intestine K64.8, Other hemorrhoids K52.9, Noninfective gastroenteritis and colitis, unspecified K52.89, Other specified noninfective gastroenteritis and colitis --- Technical --- K63.89, Other specified diseases of intestine K64.8, Other hemorrhoids K52.9, Noninfective gastroenteritis and colitis, unspecified K52.89, Other specified noninfective gastroenteritis and colitis CPT copyright 2015 [employer]. All rights reserved. The codes documented in this report are preliminary and upon cage clerk review may be revised to meet current compliance requirements. ___ Silvano Lucero DO 07/17/2016 1:35:06 PM This report has been signed electronically. Number of Addenda: 0 Note Initiated On: 07/17/2016 12:39 PM [facility] 07/17/2016 12:3 9 PM BOATBUILDER WOOD Silvano Lucero DO GI PROCEDURE ORDERABLES Ed ited Result - Final [facility] [place] [address] from Last 3 Months or Most Recently Relevant to Health Maintenance Insurance MEDICARE COMMERCIAL GENERIC MEDICARE
--- OUTSIDE RECORDS SUMMARY | 2025-01-11 13:09 | XMS_ITS | Continuity of Care Document ---
Author Organization [facility] Address [address] [place] [address] Phone Care Team Providers Care Aquatics Lifeguard Name Role Phone Migue Rick MD Unavailable Unavailable Advance Directives Directive Yes / No Effective Date File Name No Information Encounters Encounter Description Practice Location Reason(s) For Visit Diagnoses Date Provider Providers Copied on Encounter [facility], [address], [place], [place], [address], [place] tel:[phone] [facility] No Information Prabhjot Camarena. [address] , [place], [place], [address], [place]. tel:[phone] Referring Provider: Lev Abbott, [address] [place] [address], [address]. tel:[phone] Family History Family Member Type Diagnosis Age At Onset No Information Payers Payer name Insurance type Covered green party ID Authoriza tion(s) No Information Social [...]
--- OUTSIDE RECORDS SUMMARY | 2025-01-11 13:09 | XMS_ITS | Referral Summary ---
Author Organization [facility] Physician Office Building 2 Address [address] [place] [address] Care Team Providers Care Rod Puller And Coiler Name Role Phone Meir Mendoza MD Primary Care Provider [phone] Zuleyka Motta MD Unavailable Darrell Carolina MD Unavailable Lenin Rasmussen MD Unavailable [phone] Edwin Rodarte NP Unavailable [phone] Encounters Date Type Department Care Team Description 01/10/2025 11:19 AM CDT - 01/10/2025 11:59 PM CDT Hospital Encounter [facility] [address] [place] [address] [address] [place] [address] Edwin Rodarte NP Primary osteoarthritis of left hip (Primary Dx); Arthritis of left hip; Thrombocytopenia Discharge Disposition: Discharge to home or self care 10/26/2024 11:00 AM CDT - 10/26/2024 11:59 PM CDT Hospital Encounter [facility] [address] [place] [address] Edwin Rodarte NP Arthritis of left hip [...] Active Problems Problem Noted Date Diagnosed Date Primary osteoarthritis of left hip 01/10/2025 Chronic right shoulder pain 04/17/2024 Arthritis of [...] intervention Assessment & Plan (06/15/2019 5:11 PM PARACHUTE MARKER): Patient has a full-thickness tear with retraction of the supraspinatus and infraspinatus by MRI of her left shoulder. She has persistent weakness in the arm. She is likely have some associated pain with limited range of motion unless the rotator cuff is repaired. Reattaching the rotator cuff generally provides the best relief of pain range of motion [facility] as well as function over non operative [...] proceed. Assessment & Plan (06/08/2019 11:43 AM PARACHUTE MARKER): By exam the patient is likely to [...] like to have the knee subspecialist at [facility] take a look at her to see [...] 09/07/2017 Assessment & Plan (09/07/2017 4:05 PM PARACHUTE MARKER): The patient has most pronounced disc space [...] checkup Assessment & Plan (09/07/2017 4:03 PM PARACHUTE MARKER): Plain films of the right hip revealed [...] better Assessment & Plan (09/07/2017 4:05 PM PARACHUTE MARKER): A heel lift was provided for her [...] PRBC. Assessment & Plan (09/07/2017 4:10 PM PARACHUTE MARKER): Patient has chronic anemia with a baseline [...] x-rays Assessment & Plan (09/07/2017 4:03 PM PARACHUTE MARKER): Patient has end-stage arthritis of the left [...] patient. Assessment & Plan (07/06/2017 10:58 AM PARACHUTE MARKER): Patient was given a Synvisc injection through a sterile field. 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 Family history of ischemic h eart disease and other diseases of the circulatory system 04/03/2015 Palpitations 04/03/2015 Resolved Problems Problem Noted Date Diagnosed Date Resolved Date Iron deficiency anemia secon joey to inadequate dietary iron intake 09/07/2017 [...] on file Legal Sex Female 12:44 PM PARACHUTE MARKER Gender Identity Female 03/20/2021 7:46 AM CDT Sexual Orientation Straight 03/20/2021 7: 46 AM CDT Occupation Industry Job Start Date Job End Date retired Not on file Not on file Not on file Last Filed Vital Signs Vital Sign Reading Time Taken Comments Blood Pressure 116/77 01/10/2025 11:40 AM CDT Pulse 87 01/10/2025 11:40 AM CDT Temperature 36.6 C (97.8 F) 10/04/2024 11:23 AM PARACHUTE MARKER Respiratory Rate 16 01/10/2025 11:40 AM CDT Oxygen Saturation 97% 01/10/2025 11:40 AM CDT Inhaled Oxygen Concentration - - Weight 79.2 kg (174 lb 9.6 oz) 04/17/2024 11:55 AM CDT Height 165.1 cm (5' 5) 04/17/2024 11:55 AM CDT Body Mass Index 29.05 04/17/2024 11:55 AM CDT Plan of Treatment Not on file Medical Devices Implanted Type Area Metalsmith Device Identifier Shelf Expiration Date Model / Serial / Lot Component Femoral Vanguard Interlok Cocr L65 Mm Knee Left Cemented Posterior Stabilize Open Box - [id number] Implanted:Qty: 1 on 09/29/2017 by Darrell Carolina MD at [facility] Left: Knee [employer] 09/23/2026 [id number] / / [id number] Tray Tibial Cocr L71 Mm Knee I Beam - [id number] Implanted:Qty: 1 on 09/29/2017 by Darrell Carolina MD at [facility] Left: Knee [employer] 05/28/2027 [id number] / / [id number] Component Patellar Ascent Arcom Od31 Mm Knee Anterior Posterior 1 Peg Wire - [id number] Implanted:Qty: 1 on 09/29/2017 by Darrell Carolina MD at [facility] Left: Patella [employer] 07/21/2022 [id number] / / [id number] Cement Bone Palacos R 40 Gm Green - [id number] Implanted:Qty: 1 on 09/29/2017 by Darrell Carolina MD at [facility] Left: Knee [employer] [id number] 01/29/2022 [id number] / / [id number] Bearing Tibial Vanguard Porous L71/75 Mm X H14 Mm Knee Posterior Stabilize Plus Direct Compression Mold - [id number] Implanted:Qty: 1 on 11/03/2017 by Darrell Carolina MD at [facility] Left: Knee [employer] [id number] 09/28/2022 [id number] / / [id number] Component Tibial Tray Biomet Ascent Maxim Interlok Knee Primary Lock Bar - [id number] Implanted:Qty: 1 on 11/03/2017 by Darrell Carolina MD at [facility] Left: Knee [employer] [id number] 04/17/2026 [id number] / / [id number] Arthrex Inc Bh-5042urm-7 Swivelock Tigerwire Arthrex 4.75mm 22mm 2 Load 2 Tip Retention - [id number] Implanted:Qty: 1 on 07/07/2019 by Darrell Carolina MD at [facility] Left: Shoulder [employer] Inc 03/01/2021 [id number] / / [id number] Arthrex Inc [id number]-[id number] Swivelock Tigerwire Arthrex 4.75mm 22mm 2 Load 2 Tip Retention - [id number] Implanted:Qty: 1 on 07/07/2019 by Darrell Carolina MD at [facility] Left: Shoulder [employer] 01/29/2021 [id number] / / [id number] Ar[employer] Inc Ar-2324bcctt Swivelock C 4.75mm 19.1mm Closed Eyelet Vent Bearden Suture - [id number] Implanted:Qty: 1 on 07/07/2019 by Darrell Carolina MD at [facility] Left: Shoulder [employer] 08/01/2020 [id number] / / [id number] Ar[employer] Ar-2324bcct Swivelock C 4.75mm 19.1mm Close Eyelet Tape Loop Vent Bearden - [id number] Implanted:Qty: 1 on 07/07/2019 by Darrell Carolina MD at [facility] Left: Shoulder [employer] 08/01/2020 AR-[id number] / / [id number] Explanted Type Area Metalsmith Device Identifier Shelf Expiration Date Model / Serial / Lot Bearing Tibial Vanguard Porous L71/75 Mm X H14 Mm Knee Posterior Stabilize Plus Direct Compression Mold - [id number] Implanted:Qty: 1 on 09/29/2017 by Darrell Carolina MD at [facility] Explanted:Qty: 1 on 10/22/2017 at [facility] Left: Knee [employer] [id number] 01/09/2020 [id number] / / [id number] Component Tibial Tray Biomet Ascent Maxim Interlok Knee Primary Lock Bar - [id number] Implanted:Qty: 1 on 10/22/2017 by Darrell Carolina MD at [facility] Explanted:Qty: 1 on 11/03/2017 by Darrell Carolina MD at [facility] [employer] [id number] 09/28/2027 [id number] / / [id number] Bearing Tibial Vanguard Porous L71/75 Mm X H14 Mm Knee Posterior Stabilize Plus Direct Compression Mold - [id number] Implanted:Qty: 1 on 10/22/2017 by Darrell Carolina MD at [facility] Explanted:Qty: 1 on 11/03/2017 by Darrell Carolina MD at [facility] [employer] [id number] 2022 [id number] / / [id number] Insurance [facility] MEDICARE COMMERCIAL GENERIC INSURANCE [facility] Advance Directives For more information, please contact: [phone] * Full Code (Latest Code Status on [...] 4:08 PM 10/22/2017 5:02 PM Care Teams Rod Puller And Coiler Relationship Specialty Start Date End Date Meir Mendoza MD [address] [address] PCP - General 06/04/16 Zuleyka Motta MD [address] [address] Consulting Physician Infectious Diseases 10/25/17 [place] [address] [address] Surgeon Orthopedic Surgery 10/25/17 [place] [address] [address] Consulting Physician Internal Medicine 01/20/18 [place] [address] [address] Nurse Practitioner Nurse Practitioner 09/18/24
--- OUTSIDE RECORDS SUMMARY | 2025-01-11 13:09 | XMS_ITS | Clinical Summary ---
Author Organization [facility] Physician Office Building 2 Address [address] [place] [address] Care Team Providers Care Malt House Supervisor Name Role Phone Meir Mendoza MD Primary Care Provider [phone] Zuleyka Motta MD Unavailable Darrell Carolina MD Unavailable [phone] Lenin Rasmussen MD Unavailable [phone] Edwin Rodarte NP Unavailable [phone] Allergies Active Allergy Reactions Criticality Noted Date [...] intervention Assessment & Plan (06/15/2019 5:11 PM FLEET MAINTENANCE FOREMAN): Patient has a full-thickness tear with retraction of the supraspinatus and infraspinatus by MRI of her left shoulder. She has persistent weakness in the arm. She is likely have some associated pain with limited range of motion unless the rotator cuff is repaired. Reattaching the rotator cuff generally provides the best relief of pain range of motion mandaen as well as function over non operative [...] proceed. Assessment & Plan (06/08/2019 11:43 AM FLEET MAINTENANCE FOREMAN): By exam the patient is likely to [...] like to have the knee subspecialist at [facility] take a look at her to see [...] 09/07/2017 Assessment & Plan (09/07/2017 4:05 PM FLEET MAINTENANCE FOREMAN): The patient has most pronounced disc space [...] checkup Assessment & Plan (09/07/2017 4:03 PM FLEET MAINTENANCE FOREMAN): Plain films of the right hip revealed [...] better Assessment & Plan (09/07/2017 4:05 PM FLEET MAINTENANCE FOREMAN): A heel lift was provided for her [...] PRBC. Assessment & Plan (09/07/2017 4:10 PM FLEET MAINTENANCE FOREMAN): Patient has chronic anemia with a baseline [...] x-rays Assessment & Plan (09/07/2017 4:03 PM FLEET MAINTENANCE FOREMAN): Patient has end-stage arthritis of the left [...] patient. Assessment & Plan (07/06/2017 10:58 AM FLEET MAINTENANCE FOREMAN): Patient was given a Synvisc injection through [...] - 01/10/2025 11:59 PM CDT Hospital Encounter [facility] [address] [place] [address] [address] [place] [address] Edwin Rodarte NP Primary osteoarthritis of left hip (Primary Dx); Arthritis of left hip; Thrombocytopenia Discharge Disposition: Discharge to home or self care 10/26/2024 11:00 AM CDT - 10/26/2024 11:59 PM CDT Hospital Encounter [facility] [address] [place] [address] Edwin Rodarte NP Arthritis of left hip [...] on file Legal Sex Female 12:44 PM FLEET MAINTENANCE FOREMAN Gender Identity Female 03/20/2021 7:46 AM CDT [...] 36.6 C (97.8 F) 10/04/2024 11:23 AM FLEET MAINTENANCE FOREMAN Respiratory Rate 16 01/10/2025 11:40 AM CDT [...] 04/28/2017, Additional history exists Fall Risk Assessment 01/10/2026 01/10/2025 Hepatitis B Screening Completed 11/21/2007, 008 Pneumococcal vaccine 65+ Completed 05/12/2018, 04/03 Zoster Vaccine Completed 09/18/2018, 05/12/2018 Medical Devices Implanted Type Area Data Processing Manager Device Identifier Shelf Expiration Date Model / Serial / Lot Component Femoral Vanguard Interlok Cocr L65 Mm Knee Left Cemented Posterior Stabilize Open Box - [id number] Implanted:Qty: 1 on 09/29/2017 by Darrell Carolina MD at [facility] Left: Knee [employer] 09/23/2026 [id number] / / [id number] Tray Tibial Cocr L71 Mm Knee I Beam - [id number] Implanted:Qty: 1 on 09/29/2017 by Darrell Carolina MD at [facility] Left: Knee [employer] 05/28/2027 [id number] / / [id number] Component Patellar Ascent Arcom Od31 Mm Knee Anterior Posterior 1 Peg Wire - [id number] Implanted:Qty: 1 on 09/29/2017 by Darrell Carolina MD at [facility] Left: Patella [employer] 07/21/2022 [id number] / / [id number] Cement Bone Palacos R 40 Gm Green - [id number] Implanted:Qty: 1 on 09/29/2017 by Darrell Carolina MD at [facility] Left: Knee [employer] [id number] 01/29/2022 [id number] / / [id number] Bearing Tibial Vanguard Porous L71/75 Mm X H14 Mm Knee Posterior Stabilize Plus Direct Compression Mold - [id number] Implanted:Qty: 1 on 11/03/2017 by Darrell Carolina MD at [facility] Left: Knee [employer] [id number] 09/28/2022 [id number] / / [id number] Component Tibial Tray Biomet Ascent Maxim Interlok Knee Primary Lock Bar - [id number] Implanted:Qty: 1 on 11/03/2017 by Darrell Carolina MD at [facility] Left: Knee [employer] [id number] 04/17/2026 [id number] / / [id number] Arthrex [employer] [id number] Swivelock Tigerwire Arthrex 4.75mm 22mm 2 Load 2 Tip Retention - [id number] Implanted:Qty: 1 on 07/07/2019 by Darrell Carolina MD at [facility] Left: Shoulder [employer] 03/01/2021 [id number] / / [id number] [employer] [id number] Swivelock Tigerwire Arthrex 4.75mm 22mm 2 Load 2 Tip Retention - [id number] Implanted:Qty: 1 on 07/07/2019 by Darrell Carolina MD at [facility] Left: Shoulder [employer] 01/29/2021 [id number] / / [id number] [employer] [id number] Swivelock C 4.75mm 19.1mm Closed Eyelet Vent Mcclellan Suture - [id number] Implanted:Qty: 1 on 07/07/2019 by Darrell Carolina MD at [facility] Left: Shoulder [employer] 08/01/2020 [id number] / / [id number] [employer] [id number] Swivelock C 4.75mm 19.1mm Close Eyelet Tape Loop Vent Mcclellan - [id number] Implanted:Qty: 1 on 07/07/2019 by Darrell Carolina MD at [facility] Left: Shoulder [employer] 08/01/2020 [id number] / / [id number] Explanted Type Area Data Processing Manager Device Identifier Shelf Expiration Date Model / Serial / Lot Bearing Tibial Vanguard Porous L71/75 Mm X H14 Mm Knee Posterior Stabilize Plus Direct Compression Mold - [id number] Implanted:Qty: 1 on 09/29/2017 by Darrell Carolina MD at [facility] Explanted:Qty: 1 on 10/22/2017 at [facility] Left: Knee [employer] [id number] 01/09/2020 [id number] / / [id number] Component Tibial Tray Biomet Ascent Maxim Interlok Knee Primary Lock Bar - [id number] Implanted:Qty: 1 on 10/22/2017 by Darrell Carolina MD at [facility] Explanted:Qty: 1 on 11/03/2017 by Darrell Carolina MD at [facility] [employer] [id number] 09/28/2027 [id number] / / [id number] Bearing Tibial Vanguard Porous L71/75 Mm X H14 Mm Knee Posterior Stabilize Plus Direct Compression Mold - [id number] Implanted:Qty: 1 on 10/22/2017 by Darrell Carolina MD at [facility] Explanted:Qty: 1 on 11/03/2017 by Darrell Carolina MD at [facility] [employer] [id number] 2022 [id number] / / [id number] Insurance [facility] MEDICARE COMMERCIAL GENERIC IRA [facility] [place] [facility] [place] [facility] Advance Directives For more information, please contact: [phone] * Full Code (Latest Code Status on [...] 4:08 PM 10/22/2017 5:02 PM Care Teams Malt House Supervisor Relationship Specialty Start Date End Date Meir Mendoza MD [address] [address] PCP - General 06/04/16 Zuleyka Motta MD [address] [address] Consulting Physician Infectious Diseases 10/25/17 [place] [address] [address] [facility] [address] [place] [address] Surgeon Orthopedic Surgery 10/25/17 [place] [address] [address] [facility] [address] [place] [address] Consulting Physician Internal Medicine 01/20/18 [place] [address] [address] [facility] [address] [place] [address] Nurse Practitioner Nurse Practitioner 09/18/24
--- OUTSIDE RECORDS SUMMARY | 2025-01-11 13:10 | XMS_ITS | Encounter Summary ---
Author Organization [facility] Healthcare Address [address] [place] [address] Care Team Providers Care Cost Engineer Name Role Phone Meir Mendoza MD Primary Care Provider [phone] Zuleyka Motta MD Unavailable Darrell Carolina MD Unavailable Lenin Rasmussen MD Unavailable [phone] Edwin Rodarte NP Unavailable [phone] Reason for Referral * Diagnostic Imaging (Routine) - Authorized Specialty Diagnoses / Procedures Referred By Contac t Referred To Contact Diagnoses Primary osteoarthritis of left hip Procedures Imaging Shoulder, Hip, Knee Joint/Bursa INJ Left () [place] [address] [place] [address] Phone: tel: fax: [facility] [address] [place] [address] Phone: tel: fax: Referral ID Status Reason Start Date Expiration Date V isits Requested Visits Authorized [id number] Authorized 01/10/2025 02/09/2026 1 1 Reason for Visit * Reason Comments Follow-up Hip Pain Encounter Details Date Type Department Care Team (Latest Contact Info) Description 01/10/2025 11:19 AM CDT - 01/10/2025 11:59 PM CDT Hospital Encounter [facility] [address] [place] [address] [place] [address] [place] [address] Primary osteoarthritis of left hip (Primary Dx); Arthritis of left hip; Thrombocytopenia Discharge Disposition: Discharge to home or self care Social History Tobacco Use Types Packs/Day Years Used Date Smoking Tobacco: Former Cigarettes Q uit: 09/22/1978 Smokeless Tobacco: Never Alcohol Use Standard Drinks/Week Comments No 0 (1 standard drink = 0.6 oz pur e alcohol) PHQ-2 Answer Date Recorded PHQ-2 Score 0 10/03/2018 Comments No Sex and Gender Information Value Date Recorded Sex Assigned at Not on file Legal Sex Female 12:44 PM PROCESSES CHEMICAL DESIGN ENGINEER Gender Identity Female 03/20/2021 7:46 AM CDT Sexual Orientation Straight 03/20/2021 7: 46 AM CDT Occupation Industry Job Start Date Job End Date retired Not on file Not on file Not on file documented as of this encounter Last Filed Vital Signs Vital Sign Reading Time Taken Comments Blood Pressure 116/77 01/10/2025 11:40 AM CDT Pulse 87 01/10/2025 11:40 AM CDT Temperature - - Respiratory Rate 16 01/10/2025 11:40 AM CDT Oxygen Saturation 97% 01/10/2025 11:40 AM CDT Inhaled Oxygen Concentration - - Weight - - Height - - Body Mass Index - - documented in this encounter Medications at Time of Discharge allopurinol (ZYLOPRIM) 100 mg tablet Take 1 tablet (100 mg total) by mouth daily 3 03/27/2019 ALPRAZolam (XANAX) 0.25 mg tablet Take 0.5 tablets (0.125 mg total) by mouth nightly as needed 08/08/2018 b complex vitamins tablet Take 1 tablet by mouth daily buPROPion XL (WELLBUTRIN XL) 150 mg 24 hr tablet Take 1 tablet (150 mg total) by mouth every morning 02/29/2024 calcium carbonate (OS-SURESH) 1,500 mg (600 mg of elemental calcium) tabletIndication s:Osteoporosis Take 2 tablets (3,000 mg total) by mouth daily cephalexin (KEFLEX) 500 mg capsule Take 1 capsule (500 mg total) by mouth 2 (two) times a day 01/24/2018 cetirizine (ZyrTEC) 10 mg tablet take 1 tablet by oral route every day 0 0 05/05/2016 cholecalciferol (VITAMIN D-3) 5,000 unit capsuleIndicatio ns:Vitamin D Deficiency Take 2,000 Units by mouth every other day. Pt. states takes every other day colestipoL (COLESTID) 1 gram tablet Take 1 tablet (1 g total) by mouth 2 (two) times a day 04/10/2024 dicyclomine (BENTYL) 10 mg capsule TAKE 1 CAPSULE BY MOUTH 4 TIMES DAILY NEEDED FOR ABDOMINAL PAIN 03/16/2024 estradiol (ESTRACE) 1 mg tablet take 1 tablet by oral route every day 0 0 05/05/2016 furosemide (LASIX) 40 mg tablet Take 1 tablet (40 mg total) by mouth daily as needed lisinopriL (PRINIVIL,ZESTRI L) 10 mg tablet Take 1 tablet (10 mg total) by mouth daily 01/11/2020 melatonin 5 mg tablet Take 1 tablet (5 mg total) by mouth daily meloxicam (MOBIC) 15 mg tablet Take 1 tablet (15 mg total) by mouth daily metoprolol XL (TOPROL-XL) 25 mg extended release tablet Take 1 tablet (25 mg total) by mouth daily 03/06/2024 multivitamin capsule Take 1 capsule by mouth daily pravastatin (PRAVACHOL) 40 mg tablet Take 1 tablet (40 mg total) by mouth nightly 07/16/2017 triamterene-hydr oCHLOROthiazide (MAXZIDE,DYAZIDE ) 37.5-25 mg per tablet/capsule Take 1 tablet/capsule by mouth daily valACYclovir (VALTREX) 500 mg tablet Take 1 tablet (500 mg total) by mouth 2 (two) times a day documented as of this encounter Discharge Disposition Disposition Code Departure Means Destination Discharge to home or self care documented in this encounter Progress Notes * Edwin Rodarte NP - 01/10/2025 11:30 AM CDT Patient Name: Evelyn Matthews : 1950 Today's Date: 01/10/2025 PCP: Meir Mendoza MD Referring: Darrell Carolina MD Chief Complaint Patient presents with Follow-up Hip Pain HPI: Evelyn is here for follow-up . Today she presents complaining of aching and sharp left hip pain madeworse with standing and sometimes left hip abduction. Due to her pain, she is experiencing a hard time participating in basic ADLs. Today she is rating her pain 6/10 with PEG score of 9.3. In the past she tried and failed at least 6 weeks of conservative care including physical therapy, ice and heat application, prescribed and [id number] NSAIDs. For relief of her pain, she is taking ibuprofen as needed. Going forward, she would like to schedule another injection for relief of her severe left knee pain. She denies any acute onset of upper or lower extremity numbness or weakness or changes in bowel or bladder function. dysfunction. 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 Anemia of chronic disease S/P TKR (total knee replacement) using cement, left Essential hypertension HLD (hyperlipidemia) Hyperuricemia Infection of total left knee replacement Postoperative anemia due to acute blood loss Mild protein-calorie malnutrition Thrombocytopenia Thrombocytopenia Thyroid nodule Traumatic complete tear of left rotator cuff S/P revision of total hip Chest pain Disorder of carotid artery Family history of ischemic heart disease and other diseases of the circulatory system Palpitations Sacroiliitis, not elsewhere classified Chronic right shoulder pain Arthritis of left hip Trochanteric bursitis of left hip Primary osteoarthritis of left hip Past Surgical History: Procedure Laterality Date BLADDER REPAIR HIP ARTHROPLASTY Right Hip replacement HYSTERECTOMY IR PICC LINE PLACEMENT > 5 YEARS N/A 10/25/2017 JOINT REPLACEMENT left knee KNEE ARTHROSCOPY Left Arthroscopy knee KNEE SURGERY Left 09/29/2017 ROTATOR CUFF REPAIR Right Rotator cuff repair ROTATOR CUFF REPAIR Left Rotator cuff repair Social History Tobacco Use Smoking status: Former Current packs/day: 0.00 Types: Cigarettes Quit date: 09/22/1978 Years since quittin.3 Smokeless tobacco: Never Substance and Sexual Activity Drug use: No Sexual activity: Defer Alcohol Use: Not on file Family History Problem Relation Age of Onset Heart disease Mother Heart attack Father Cancer Sister Rheumatologic disease Daughter Arthritis Sister Heart disease Other Family history of cardiac disorder - (Added by TW Conv) Arthritis Other Family history of arthritis - (Added by TW Conv) Hypertension Other Family history of hypertension - (Added by TW Conv) HOME MEDICATIONS : allopurinol (ZYLOPRIM) 100 mg tablet ALPRAZolam (XANAX) 0.25 mg tablet b complex vitamins tablet buPROPion XL (WELLBUTRIN XL) 150 mg 24 hr tablet calcium carbonate (OS-SURESH) 1,500 mg (600 mg of elemental calcium) tablet cephalexin (KEFLEX) 500 mg capsule cetirizine (ZyrTEC) 10 mg tablet cholecalciferol (VITAMIN D-3) 5,000 unit capsule colestipoL (COLESTID) 1 gram tablet dicyclomine (BENTYL) 10 mg capsule estradiol (ESTRACE) 1 mg tablet furosemide (LASIX) 40 mg tablet lisinopriL (PRINIVIL,ZESTRIL) 10 mg tablet melatonin 5 mg tablet meloxicam (MOBIC) 15 mg tablet metoprolol XL (TOPROL-XL) 25 mg extended release tablet multivitamin capsule pravastatin (PRAVACHOL) 40 mg tablet triamterene-hydroCHLOROthiazide (MAXZIDE,DYAZIDE) 37.5-25 mg per tablet/capsule valACYclovir (VALTREX) 500 mg tablet Review of Systems Review of systems completed, reviewed, and scanned into the chart. Physical Exam Vitals: 01/10/25 1140 BP: 116/77 Pulse: 87 Resp: 16 SpO2: 97% Estimated body mass index is 29.05 kg/m?? as calculated from the following: Height as of 04/17/24: 165.1 cm (5' 5). Weight as of 04/17/24: 79.2 kg (174 lb 9.6 oz). Alert and oriented. Normal pupils. Normal respiratory effort. Abdomen not distended. CN 2-12 grossly intact. There is some discomfort within the shoulder joint itself on the right side. The patient also has pain with left hip flexion and tenderness over left greater trochanteric bursa. No gross weakness however there is some limitation in range of motion against resistance with the right shoulder. Assessment Encounter Diagnoses Name Primary? Arthritis of left hip Primary osteoarthritis of left hip Yes Medical Decision Making / Plan: VAS, PEG, COMM, PDMP, and BOB reviewed. Plan: Today I saw Evelyn for follow-up. I believe the majority of her left hip and groin pain is secondaryto left hip degenerative osteoarthritis. We have discussed the plan of care and we will schedule the patient for left hip joint steroid injection. Follow-up 2 weeks after the procedure Goals of Treatment: Treat underlying pathology, improve pain control, improve function and quality of life. Use of Medications: The pain management contract has been previously reviewed. Questions solicited and answered, and the patient endorses a clear understanding. The patient understands random toxicology screening and prescription drug monitoring will be used. Instructed to take the smallest effective dose of opioid medication. Risks/side-effects of opioid medications, if utilizing, have been reviewed including: drowsiness, tolerance, addiction, abuse, constipation, nausea, vomiting, itching, dizziness, allergic reaction, respiratory depression, lack of benefit, endocrine abnormalities, low testosterone, sexual dysfunction, or . If utilizing, risks/side-effects of NSAID???s and potential for gastrointestinal bleeding, gastritis/esophagitis, and increased cardiac risk reviewed. Risks/side-effects of Gabapentin, Lyrica, and other potential sedative medications, if utilizing, have been reviewed including drowsiness, sedation, dizziness, fluid retention, weight gain, respiratory depression, and . If utilizing medications, the patient has been instructed to take every medication appropriately, storing and disposing properly, never sharing medication. The patient has been instructed on opioid medications, including but not limited to: do not combine with other medications such as benzodiazepines, alcohol, muscle relaxers, or other depressant medications. Patient instructed to avoid driving and operating heavy machinery. UDS screens will be performed to assess for medication, metabolites, other medications, and illicit substances. Results may be discussed at the next visit. Pre-hypertension/Hypertension: The patient has been informed that they may have pre-hypertension orhypertension based on a blood pressure reading in the office today. I recommend that the patient call their primary care provider or a physician of their choice this week to arrange follow up for further evaluation of possible pre-hypertension or hypertension. Tobacco Screening: Evelyn Matthews was screened for tobacco use. Patient is not a tobacco user. Tobacco counseling not applicable. Baggage Clerk: Baggage Clerk done with Fluency Direct: variances and inaccuracies may occur. Dictations not proofread. Problem list pertinent to today???s visit reviewed, but entire patient problem list not reviewed today. I, Edwin Rodarte, have personally performed the services described in the documentation , reviewed the documentation as recorded. There are potential variances in recording and zigzagger. Dictated not proofread. I appreciate the unique opportunity to see and treat this patient. documented in this encounter Miscellaneous Notes * Addendum Note - Pam Cristobal MA - 01/10/2025 11:30 AM CDTEncounter addended by: Pam Cristobal MA on: 01/10/2025 12:02 PM Actions taken: Visit diagnoses modified, Order list changed, Diagnosis association updated documented in this encounter Plan of Treatment Scheduled Orders Name Type Priority Associated Diagnoses Orde r Schedule Imaging Shoulder, Hip, Knee Joint/Bursa INJ Left () Imaging Schedule Routine, Read Routine (OP Routine) Primary osteoarthritis of left hip Expected: 01/10/2025, Expires: 01/10/2026 documented as of this encounter Visit Diagnoses Diagnosis Primary osteoarthritis of left hip- Primary Arthritis of left hip Thrombocytopenia Unspecified thrombocytopenia documented in this encounter Care Teams Cost Engineer Relationship Specialty Start Date End Date Meir Mendoza MD [address] [place] [address] PCP - General 06/04/16 Zuleyka Motta MD [address] [place] [address] Consulting Physician Infectious Diseases 10/25/17 [place] [address] [address] Surgeon Orthopedic Surgery 10/25/17 [place] [address] [address] Consulting Physician Internal Medicine 01/20/18 [place] [address] [address] [facility] [address] [place] [address] Nurse Practitioner Nurse Practitioner 09/18/24 documented as of this encounter
== END 2025-01-11 12:44 | disposition home or self-care (01) ==
PROVIDERS: PCP Family Medicine; Visit Provider Family Medicine
DX: M47.816 Spondylosis without myelopathy or radiculopathy, lumbar region (principal); M71.38 Other bursal cyst, other site; M48.061 Spinal stenosis, lumbar region without neurogenic claudication; M48.07 Spinal stenosis, lumbosacral region; M41.86 Other forms of scoliosis, lumbar region
CPT/HCPCS: 72158; A9577

== ENCOUNTER 2025-03-06 13:50 | Emergency (ER) | payer OTHER, SELFPAY ==
[2025-03-06 14:12] VITALS: BP 131/70; PULSE 70; RESP 14; TEMP 36.6; O2SAT 99
--- NOTE | 2025-03-06 15:01 | ED_ITS ---
HPI - General Adult General Chief complaint: Unspecified Stated complaint: face swollen Source: patient Mode of arrival: ambulatory History of Present Illness HPI narrative: patient presents for evaluation of lip swelling. Symptoms started overnight last night. She woke from sleep with swelling in the left lips. She also felt like her cheek was swollen in a similar fashion as if she bit her cheek. She took benadryl and her symptoms improved. She then developed right lip swelling around 1300 today. Her symptoms have persisted which prompted her to come in today. She denies any dental pain or sore throat. Denies difficulty breathing or swallowing. She had similar symptoms about 3-4 months ago but the symptoms resolved without intervention. She is currently on lisinopril 10 mg daily. She was unable to reach her primary care provider today so came in for further evaluation. Related Data Home Medications ?Medication ?Instructions ?Recorded ?Confirmed ?Last Taken ?Type B-complex with vitamin C (Super 1 cap PO DAILY 06/15/19 11/01/24 07/12/24 History B/C capsule) Bacillus coagulans 10 billion cell 1 cell PO DAILY 06/15/19 11/01/24 07/12/24 History capsule,delayed release (Probiotic (B. coagulans)) calcium 315 mg (as 1 tablet PO DAILY 06/15/19 11/01/24 07/12/24 History citrate)-ergocalciferol 5 mcg (200 unit) tablet cetirizine 10 mg tablet (Zyrtec) 10 mg PO DAILY PRN ALLERGIES 06/15/19 11/01/24 07/12/24 History estradiol 1 mg tablet 1 mg PO DAILY 06/15/19 11/01/24 07/12/24 History multivitamin 1 tablet PO DAILY 06/15/19 11/01/24 07/11/24 History ferrous sulfate 325 mg (65 mg 325 mg PO DAILY 03/23/24 11/01/24 07/09/24 History iron) tablet,delayed release cholecalciferol (vitamin D3) 50 2,000 unit PO DAILY 01/22/25 Unknown History mcg (2,000 unit) capsule Allergies Allergy/AdvReac Type Severity Reaction Status Date / Time amoxicillin Allergy Severe Hives Verified 03/06/25 13:52 ceftriaxone Allergy Severe low Verified 03/06/25 13:52 platlets Penicillins Allergy Severe Dermatitis Verified 03/06/25 13:52 Sulfa (Sulfonamide Allergy Intermediate RASH Verified 03/06/25 13:52 Antibiotics) codeine AdvReac Intermediate Nausea Verified 03/06/25 13:52 Azithromycin Allergy Mild swelling Uncoded 03/06/25 13:52 of lips Review of Systems Review of Systems: CONSTITUTIONAL: Denies fever, chills, or sweats. EYES: Denies visual changes, redness, or discharge. ENT: Reports Lip and cheek swelling. denies sore throat or dental pain. denies difficulty swallowing CARDIOVASCULAR: Denies chest pain, palpitations, or edema. RESPIRATORY: Denies cough or dyspnea. GASTROINTESTINAL: Denies abdominal pain, nausea, vomiting, or diarrhea. GENITOURINARY: Denies dysuria or hematuria. SKIN: Denies rash or itching. MUSCULOSKELETAL: Denies back pain, joint pain, or myalgia. NEUROLOGIC: Denies headache, numbness, dizziness, or weakness. PSYCHIATRIC: Denies anxiety or depression. [facility] [place] Past Medical History Medical History Depression Chronic low back pain with left-sided sciatica MRI lumbar spine 01/11/2025 with moderate to severe spondylosis most severe at L4-L5 with 1.5 cm synovial cyst on the left with severe neuroforaminal stenosis and impingement. Diarrhea Abdominal pain Elevated fecal calprotectin At moderate risk for fall Low iron iron level low at 38 with 13% saturation and ferritin 37 with hemoglobin 13.3 on 03/14/2024. Iron 141, 42% saturation, ferritin 56 with hemoglobin 13.9 on 11/07/2024. Chronic anxiety Abnormal finding on EKG (06/07/23) EKG on 06/07/2023 revealed signs of left axis deviation and possible previous inferior infarction with Q-waves in the inferior leads. No old EKG for comparison. Frequent PVCs (~05/2023) Rapid palpitations (~05/2023) 24 hour Holter monitor on 06/17/2023 revealed sinus rhythm with frequent PVCs. No worrisome arrhythmias. At low risk for fall URI, acute Breast cancer screening by mammogram normal mammogram 09/02/2022 with recheck in 1 year. Normal mammogram 09/03/2023. normal mammogram 09/14/2024. Polyp of colon history of colon polyp with normal colonoscopy on 10/08/[address] Thomas with recheck in 5 years.Normal colonoscopy on 07/13/2024 with recheck in 5 years. Right elbow pain Pain in right upper arm Benign paroxysmal positional vertigo due to bilateral vestibular disorder Chronic pain in left shoulder X-ray of the left shoulder reveals mild arthritis 02/21/2022. Overweight (BMI 25.0-29.9) BMI 28.0-28.9,adult Multinodular non-toxic goiter ultrasound of the thyroid with multiple solid nodules with ill-defined margins 08/28/2021 . TSH 2.38 on 02/19/2023. BMI 27.0-27.9,adult BMI 29.0-29.9,adult Atypical chest pain Irritable bowel syndrome with diarrhea elevated calprotectin level at 992 on 03/24/2024 suggestive of inflammatory bowel disease. BMI 33.0-33.9,adult GERD (gastroesophageal reflux disease) Allergic drug reaction Acute non-recurrent maxillary sinusitis Cough Chronic low back pain without sciatica Vitamin D insufficiency Vitamin-D level low at 18 with goal greater than 30 on 03/14/2024. Level low at 17 on 11/07/2024. Septic arthritis of knee, left Body mass index (bmi) 32.0-32.9, adult (12/22/18) Macrocytosis Hemoglobin 13.4 with MCV normal at 99.7 on 02/19/2023. Other secondary thrombocytopenia Platelets 263 on 02/19/2023. Platelets normal at 270 on 03/14/2024. Family History Family History Father Acute myocardial infarction, Onset Age: 59 Sibling Family history of malignant neoplasm, Onset Age: 58 Mother Family history of congestive heart failure, Onset Age: 75 Social History Social History Smoking status: Former smoker Alcohol intake: never Substance use: never Substance use type: does not use Lack of Transportation: No Lack of Food: Never True Current Housing: I Have Housing Concerned About Future Housing: No Difficulty Paying Gas/Electric Bills: No Difficulty Paying for Meds: No Currently Unemployed: No Education: High School Diploma/GED Difficulty w/ Childcare or Family Care: No Living arrangements: with family Spiritual care concerns: No Exam Narrative: GENERAL: Well-appearing, well-nourished, and in no acute distress. HEAD: Normocephalic, atraumatic. EYES: PERRLA and EOMI. ENT: Nares clear, no rhinorrhea or epistaxis. Mucous membranes moist. there is no posterior pharyngeal swelling or erythema. Right upper and lower lips are swollen. Swelling absent from the tongue. Bilateral TMs pearly kidd nonbulging NECK: Supple. No adenopathy or masses. No carotid bruits or JVD CHEST: Clear to auscultation. No respiratory distress. No wheezes rales or rhonchi HEART: Regular rate and rhythm. No murmur heard. Normal peripheral pulses. ABDOMEN: Soft, nontender, nondistended, normal active bowel sounds. EXTREMITIES: Normal range of motion. No edema. SKIN: Warm, dry, no rash. NEURO: No focal deficits. Alert and oriented x3. PSYCH: Normal mood and affect. Course Course Emergency Course: This is a 74-year-old female who presented for evaluation of lip swelling. 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 She was given Solu-Medrol while here. She is advised to stop lisinopril. Will provide her with a prescription for losartan. She will be discharged with prednisone, Pepcid and Benadryl. She is advised to go to the emergency department if she has worsening symptoms. Otherwise she should follow-up with her primary care provider. Patient in agreement with plan of care. Level of Care: Express Care Visit Vital Signs Vital signs: Vital Signs Temperature 36.6 C 03/06/25 14:12 Pulse Rate 70 03/06/25 14:12 Respiratory Rate 14 03/06/25 14:12 Blood Pressure 131/70 03/06/25 14:12 Pulse Oximetry 99 03/06/25 14:12 Oxygen Delivery Room Air 03/06/25 14:12 Temperature 36.6 C 03/06/25 14:12 Pulse Rate 70 03/06/25 14:12 Respiratory Rate 14 03/06/25 14:12 Blood Pressure 131/70 03/06/25 14:12 Pulse Oximetry 99 03/06/25 14:12 Oxygen Delivery Room Air 03/06/25 14:12 Medical Decision Making Vital Signs Vital Signs: Vital Signs Temperature 36.6 C 03/06/25 14:12 Pulse Rate 70 03/06/25 14:12 Respiratory Rate 14 03/06/25 14:12 Blood Pressure 131/70 03/06/25 14:12 Pulse Oximetry 99 03/06/25 14:12 Oxygen Delivery Room Air 03/06/25 14:12 Temperature 36.6 C 03/06/25 14:12 Pulse Rate 70 03/06/25 14:12 Respiratory Rate 14 03/06/25 14:12 Blood Pressure 131/70 03/06/25 14:12 Pulse Oximetry 99 03/06/25 14:12 Oxygen Delivery Room Air 03/06/25 14:12 Discharge Plan Discharge Clinical Impression: Angioedema Patient Disposition: Home Condition: Stable Instructions: Antibiotic Form, Angioedema (ED) Additional Instructions: PLEASE STOP TAKING LISINOPRIL IF YOU HAVE RECURRENT SYMPTOMS OR HAVE DIFFICULTY BREATHING OR SWELLING, PLEASE GO TO THE EMERGENCY DEPARTMENT Patient Language: Yoruba Prescriptions: New prednisone 20 mg tablet 40 mg PO DAILY 5 Days Qty: 10 0RF diphenhydramine HCl [Benadryl Allergy] 25 mg tablet 25 - 50 mg PO Q6H PRN (Reason: allergic reaction) Qty: 30 0RF famotidine [Pepcid] 20 mg tablet 20 mg PO BID Qty: 10 0RF losartan 25 mg tablet 25 mg PO DAILY Qty: 30 0RF No Action ferrous sulfate 325 mg (65 mg iron) tablet,delayed release (DR/EC) 325 mg PO DAILY bupropion HCl 75 mg tablet 75 mg PO . q.a.m. Qty: 30 11RF calcium citrate-vitamin D2 1,500-200 mg-unit tablet 1 tablet PO DAILY multivitamin Tablet 1 tablet PO DAILY B-complex with vitamin C [Super B/C] Capsule 1 cap PO DAILY estradiol 1 mg tablet 1 mg PO DAILY cetirizine [Zyrtec] 10 mg tablet 10 mg PO DAILY PRN (Reason: ALLERGIES) Probiotic (B. coagulans) 10 billion cell capsule,delayed release(DR/EC) 1 cell PO DAILY triamterene-hydrochlorothiazid 37.5-25 mg tablet 1 tablet PO QAM Qty: 90 3RF metoprolol succinate 25 mg tablet extended release 24 hr 25 mg PO DAILY Qty: 30 11RF pravastatin 40 mg tablet 40 mg PO DAILY Qty: 90 3RF allopurinol 100 mg tablet 200 mg PO DAILY Qty: 180 3RF meloxicam 15 mg tablet 15 mg PO DAILY Qty: 90 3RF furosemide [Lasix] 40 mg tablet 40 mg PO QAM PRN (Reason: edema) Qty: 90 3RF cephalexin 500 mg capsule 500 mg PO Q12H Qty: 180 3RF Rx Instructions: Patient will be on this for life. Do not remove or cancel medication alprazolam 0.25 mg tablet 0.125 mg PO TID PRN (Reason: anxiety) Qty: 30 5RF cholecalciferol (vitamin D3) 50 mcg (2,000 unit) capsule 2,000 unit PO DAILY lisinopril 10 mg tablet 10 mg PO DAILY Qty: 90 3RF Follow-up/Referrals: Meir Mendoza MD [Primary Care Provider] - Time of Disposition: 14:57
== END 2025-03-06 15:19 | disposition home or self-care (01) ==
PROVIDERS: Emergency Provider Nurse Practitioner; PCP Family Medicine
DX: T78.3XXA Angioneurotic edema, initial encounter (principal); Z87.891 Personal history of nicotine dependence; K21.9 Gastro-esophageal reflux disease without esophagitis; D69.59 Other secondary thrombocytopenia; E55.9 Vitamin D deficiency, unspecified
CPT/HCPCS: 96372; 99213; G0463; J2919

== ENCOUNTER → 2025-04-04 12:02 | Outpatient (CLI) | payer OTHER, SELFPAY ==
--- OUTSIDE RECORDS SUMMARY | 2015-04-10 05:00 | XMS_ITS | Continuity of Care Document ---
Author Organization [facility] Address [address] [place] [address] Phone Care Team Providers Care Glove Maker Name Role Phone Migue Rick MD Unavailable Unavailable Advance Directives Directive Yes / No Effective Date File Name No Information Encounters Encounter Description Practice Location Reason(s) For Visit Diagnoses Date Provider Providers Copied on Encounter [facility], [address], [place], [place], [id number], [place] tel:[phone] [facility] No Information Prabhjot Camarena. [address] , [place], [place], [id number], [place]. tel:[phone] Referring Provider: Lev Abbott, [address] [place] [address], [address]. tel:[phone] Family History Family Member Type Diagnosis Age At Onset No Information Payers Payer name Insurance type Covered democrat ID Authoriza tion(s) No Information Social History Type Description Quantity Date Captured Comments Sex Female Smoking Status No Information Chief Complaint And Reason For Visit No Information Reason For Referral Reason For Referral No Information History Of Present Illness Encounter Date Complaint History Of Prese nt Illness No Information Functional Status Date Functional Assessmen t No Information Instructions Date Instruction Additional Infor mation No Information Assessments Type Assessment Date No Information Patient Care Teams Name Effective Dates (start - stop) Status Members No Information
--- NOTE | ~2025-04-04 | XR_ITS ---
EXAM/ PROCEDURE: XR shoulder RT min 2V - 04/04/2025 12:04 CDT HISTORY: 74 years old Female with M25.511 - Pain in right shoulder, lateral COMPARISON: None available TECHNIQUE: Three view(s) FINDINGS/ IMPRESSION: There are no fractures or dislocations.Joint space narrowing, subchondral sclerosis, subchondral cyst formation and osteophyte formation, compatible with mild osteoarthritis. Reviewed, dictated and finalized at location N.
--- OUTSIDE RECORDS SUMMARY | 2025-04-04 13:37 | XMS_ITS | Clinical Summary ---
Author Organization [facility] Physician Office Building 2 Address [address] [place] [address] Care Team Providers Care Baker Second Name Role Phone Meir Mendoza MD Primary Care Provider [phone] Zuleyka Motta MD Unavailable Darrell Carolina MD Unavailable [phone] Lenin Rasmussen MD Unavailable [phone] Edwin Rodarte NP Unavailable Allergies Active Allergy [...] E) 37.5-25 mg per tablet/capsule Take 1 tablet/capsul e by mouth daily Active b complex vitamins [...] (5 mg total) by mouth daily Active metoprolol XL (TOPROL-XL) 25 mg extended [...] DAILY NEEDED FOR ABDOMINAL PAIN 4 Active losartan (COZAAR) 25 mg tablet 5 Active lisinopriL (PRINIVIL,ZESTR IL) 10 mg tablet Take 1 tablet (10 mg total) by mouth daily 0 03/29/20 25 Discontinu ed(Alterna te therapy) Active Problems Problem Noted Date Diagnosed Date Lumbar radiculopathy 02/06/2025 Primary osteoarthritis of left hip 01/10/2025 Chronic [...] intervention Assessment & Plan (06/15/2019 5:11 PM ELEVATOR EXAMINER AND ADJUSTER): Patient has a full-thickness tear with retraction of the supraspinatus and infraspinatus by MRI of her left shoulder. She has persistent weakness in the arm. She is likely have some associated pain with limited range of motion unless the rotator cuff is repaired. Reattaching the rotator cuff generally provides the best relief of pain range of motion jainism as well as function over non operative [...] proceed. Assessment & Plan (06/08/2019 11:43 AM ELEVATOR EXAMINER AND ADJUSTER): By exam the patient is likely to [...] like to have the knee subspecialist at [facility] take a look at her to [...] 09/07/2017 Assessment & Plan (09/07/2017 4:05 PM ELEVATOR EXAMINER AND ADJUSTER): The patient has most pronounced disc space [...] checkup Assessment & Plan (09/07/2017 4:03 PM ELEVATOR EXAMINER AND ADJUSTER): Plain films of the right hip revealed [...] better Assessment & Plan (09/07/2017 4:05 PM ELEVATOR EXAMINER AND ADJUSTER): A heel lift was provided for her [...] PRBC. Assessment & Plan (09/07/2017 4:10 PM ELEVATOR EXAMINER AND ADJUSTER): Patient has chronic anemia with a baseline [...] x-rays Assessment & Plan (09/07/2017 4:03 PM ELEVATOR EXAMINER AND ADJUSTER): Patient has end-stage arthritis of the left [...] patient. Assessment & Plan (07/06/2017 10:58 AM ELEVATOR EXAMINER AND ADJUSTER): Patient was given a Synvisc injection through [...] Encounters Date Type Department Care Team Description 03/29/2025 3:30 PM CDT - 03/29/2025 11:59 PM CDT Hospital En[facility] [address] [place] [phone] Discharge Disposition: Discharge to home or self care 03/29/2025 3:30 PM CDT - 03/29/2025 11:59 PM CDT Hospital Encounter [facility] [address] [place] [phone] Discharge Disposition: Discharge to home or self care 03/29/2025 3:15 PM CDT Office Visit [facility] at [address] [phone] Zoila Yu MD Presence of left artificial knee joint (Primary Dx); Bilateral hip pain 03/27/2025 10:30 AM CDT - 03/27/2025 11:59 PM CDT Hospital Encounter [facility] [address] [place] [address] Otto Castorena MD Spinal stenosis of lumbar region with neurogenic claudication [M48.062] (Primary Dx); Lumbar radiculopathy Discharge Disposition: Discharge to home or self care 03/26/2025 Telephone [facility] [address] [place] [address] Sugey Thompson 03/22/2025 12:47 PM CDT - 03/22/2025 11:59 PM CDT Hospital Encounter [facility] [address] [place] [address] Edwin Rodarte NP Arthritis of left hip (Primary Dx); Lumbar radiculopathy Discharge Disposition: Discharge to home or self care 03/06/2025 Telephone [facility] [address] [place] [address] Viola Chavez RN 02/06/2025 1:30 PM CDT - 02/06/2025 11:59 PM CDT Hospital Encounter [facility] [address] [place] [address] Edwin Rodarte NP Primary osteoarthritis of left hip (Primary Dx); Trochanteric bursitis of left hip; Arthritis of left hip; Lumbar radiculopathy Discharge Disposition: Discharge to home or self care 01/22/2025 2:38 PM CDT - 01/22/2025 11:59 PM CDT Hospital Encounter [facility] [address] [place] [address] Otto Castorena MD Primary osteoarthritis of left hip Discharge Disposition: Discharge to home or self care 01/10/2025 11:19 AM CDT - 01/10/2025 11:59 PM CDT Hospital Encounter [facility] [address] [place] [address] Edwin Rodarte NP Primary osteoarthritis of left [...] on file Legal Sex Female 12:44 PM ELEVATOR EXAMINER AND ADJUSTER Gender Identity Female 03/20/2021 7:46 AM CDT Sexual Orientation Straight 03/20/2021 7: 46 AM CDT Occupation Industry Job Start Date Job End Date retired Not on file Not on file Not on file Obstetrics History Last Filed Vital Signs Vital Sign Reading Time Taken Comments Blood Pressure 179/87 03/27/2025 12:24 PM CDT Pulse 69 03/27/2025 12:24 PM CDT Temperature 36.4 C (97.5 F) 03/27/2025 11:44 AM CDT Respiratory Rate 15 03/27/2025 12:24 PM CDT Oxygen Saturation 98% 03/27/2025 12:24 PM CDT Inhaled Oxygen Concentration - - Weight 82.1 kg (181 lb) 03/29/2025 3:22 PM CDT Height 165.1 cm (5' 5) 03/29/2025 3:22 PM CDT Body Mass Index 30.12 03/29/2025 3:22 PM CDT Plan of Treatment Health Maintenance Due Date Last Done Comments Breast Cancer Screening-Mammogram 1950 Colon Cancer Screening-Colonoscopy 1950 Depression Screening 1950 Hepatitis C Screening 1950 Osteoporosis Screening-Bone Density Scan 1950 Well Visit 65+ 2016 Covid-19 Vaccine (5 2024-2 6 season) 2025 07/21/2023, 07/17/2021, 11/02/2020, Additional history exists Influenza Vaccine (#1) 2025 , 05/31/2022, 06/10/2021, Additional history exists Fall Risk Assessment 03/22/2026 03/22/2025 DTaP/Tdap/Td Vaccine (2 - Td or Tdap) 04/21/2032 04/21/2022 Hepatitis B Screening Completed 11/21/2007, 008 Pneumococcal vaccine 65+ Completed 05/12/2018, 04/03 Zoster Vaccine Completed 09/18/2018, 05/12/2018 Medical Devices Implanted Type Area Laser/Electro Optics Technician Device Identifier Shelf Expiration Date Model / Serial / Lot Component Femoral Vanguard Interlok Cocr L65 Mm Knee Left Cemented Posterior Stabilize Open Box - [id number] Implanted:Qty: 1 on 09/29/2017 by Darrell Carolina MD at [facility] Left: Knee [employer] 09/23/2026 [id number] / / [id number] Tray Tibial Cocr L71 Mm Knee I Beam - [id number] Implanted:Qty: 1 on 09/29/2017 by Darrell Carolina MD at [facility] Left: Knee [employer] 05/28/2027 [id number] / / [id number] Component Patellar Ascent Arcom Od31 Mm Knee Anterior Posterior 1 Peg Wire - [id number] Implanted:Qty: 1 on 09/29/2017 by Darrell Carolina MD at [facility] Left: Patella [employer] 07/21/2022 [id number] / / [id number] Cement Bone Palacos R 40 Gm Green - [id number] Implanted:Qty: 1 on 09/29/2017 by Darrell Carolina MD at [facility] Left: Knee [employer] [id number] 01/29/2022 [id number] / / [id number] Bearing Tibial Vanguard Porous L71/75 Mm X H14 Mm Knee Posterior Stabilize Plus Direct Compression Mold - [id number] Implanted:Qty: 1 on 11/03/2017 by Darrell Carolina MD at [facility] Left: Knee [employer] [id number] 09/28/2022 [id number] / / [id number] Component Tibial Tray Biomet Ascent Maxim Interlok Knee Primary Lock Bar - [id number] Implanted:Qty: 1 on 11/03/2017 by Darrell Carolina MD at [facility] Left: Knee [employer] [id number] 04/17/2026 [id number] / / [id number] [employer] [id number] Swivelock Tigerwire Arthrex 4.75mm 22mm 2 Load 2 Tip Retention - [id number] Implanted:Qty: 1 on 07/07/2019 by Darrell Carolina MD at [facility] Left: Shoulder [employer] 03/01/2021 [id number] / / [id number] [employer] [id number] Swivelock Tigerwire Arthrex 4.75mm 22mm 2 Load 2 Tip Retention - [id number] Implanted:Qty: 1 on 07/07/2019 by Darrell Carolina MD at [facility] Left: Shoulder [employer] 01/29/2021 [id number] / / [id number] [employer] [id number] Swivelock C 4.75mm 19.1mm Closed Eyelet Vent [place] Suture - [id number] Implanted:Qty: 1 on 07/07/2019 by Darrell Carolina MD at [facility] Left: Shoulder [employer] 08/01/2020 [id number] / / [id number] [employer] Ar-[id number] Swivelock C 4.75mm 19.1mm Close Eyelet Tape Loop Vent [place] - [id number] Implanted:Qty: 1 on 07/07/2019 by Darrell Carolina MD at [facility] Left: Shoulder [employer] 08/01/2020 [id number] / / [id number] Explanted Type Area Laser/Electro Optics Technician Device Identifier Shelf Expiration Date Model / Serial / Lot Bearing Tibial Vanguard Porous L71/75 Mm X H14 Mm Knee Posterior Stabilize Plus Direct Compression Mold - [id number] Implanted:Qty: 1 on 09/29/2017 by Darrell Carolina MD at [facility] Explanted:Qty: 1 on 10/22/2017 at [facility] Left: Knee [employer] [id number] 01/09/2020 [id number] / / [id number] Component Tibial Tray Biomet Ascent Maxim Interlok Knee Primary Lock Bar - [id number] Implanted:Qty: 1 on 10/22/2017 by Darrell Carolina MD at [facility] Explanted:Qty: 1 on 11/03/2017 by Darrell Carolina MD at [facility] [employer] [id number] 09/28/2027 [id number] / / [id number] Bearing Tibial Vanguard Porous L71/75 Mm X H14 Mm Knee Posterior Stabilize Plus Direct Compression Mold - [id number] Implanted:Qty: 1 on 10/22/2017 by Darrell Carolina MD at [facility] Explanted:Qty: 1 on 11/03/2017 by Darrell Carolina MD at [facility] [employer] [id number] 2022 [id number] / / [id number] Procedures Procedure Name Priority Date/Time Associated Diagnosis Comments XR HIPS BILATERAL W PELVIS 2 VIEW Schedule Routine, Read Routine (OP Routine) 03/29/2025 4:55 PM CDT Presence of left artificial knee joint Bilateral hip pain XR KNEE LEFT 3 VIEWS Schedule Routine, Read Routine (OP Routine) 03/29/2025 4:54 PM CDT Presence of left artificial knee joint PAIN MGMT IMAGING LUMBAR/CAUDAL EPIDURAL STEROID INJ Schedule Routine, Read Routine (OP Routine) 03/27/2025 12:12 PM CDT Lumbar radiculopathy PAIN MGMT IMAGING SHOULDER, HIP, KNEE JOINT/BURSA INJ LEFT Schedule Routine, Read Routine (OP Routine) 01/22/2025 3:37 PM CDT Primary osteoarthritis of left hip from Last 3 Months Results * XR Bilateral Hips W Pelvis 2 Vw (03/29/2025 4:55 PM CDT) Anatomical Region Laterality Modality Lower Extremities, Hip, Pelvis Bilateral C omputed Radiography Narrative 03/29/2025 4:55 PM CDT No change in RTHA. No osteolysis or eccentric wear, stable cup positionoing. L hip shows no fracture dislocation or joint space narrowing Zoila Yu MD IMG XR PROCEDURES Rajani l Result * XR Knee Left 3 Views (03/29/2025 4:54 PM CDT) Anatomical Region Laterality Modality Lower Extremities, Knee Left Computed Radiography Narrative 03/29/2025 4:54 PM CDT Well fixed well aligned LTKA Zoila Yu MD IMG XR PROCEDURES Rajani l Result * Imaging Lumbar/Caudal Epidural Steroid INJ (88795) (03/27/2025 12:12 PM CDT) Narrative [facility] - 03/27/2025 12:13 PM CDT The images from this study are not interpreted by Radiology. Please refer to the physician's procedure / OR operative note. Edwin Rodarte NP IMG PAIN MGMT PROCEDURES F inal Result [facility] * Imaging Shoulder, Hip, Knee Joint/Bursa INJ Left () (01/22/2025 3:37 PM CDT) Narrative [facility] - 01/22/2025 3:38 PM CDT The images from this study are not interpreted by Radiology. Please refer to the physician's procedure / OR operative note. Edwin Rodarte ANTENNA MACHINE OPERATOR IMG PAIN MGMT PROCEDURES F inal Result [facility] from Last 3 Months Insurance [facility] MEDICARE COMMERCIAL GENERIC [facility] [employer] [employer] Advance Directives For more information, please contact: [phone] * Full Code (Latest Code Status on [...] 4:08 PM 10/22/2017 5:02 PM Care Teams Baker Second Relationship Specialty Start Date End Date Meir Mendoza MD [address] [address] PCP - General 06/04/16 Zuleyka Motta MD [address] [address] Consulting Physician Infectious Diseases 10/25/17 [place] [address] [address] Surgeon Orthopedic Surgery 10/25/17 [place] [address] [address] Consulting Physician Internal Medicine 01/20/18 [place] [address] [address] Nurse Practitioner Nurse Practitioner 09/18/24
--- OUTSIDE RECORDS SUMMARY | 2025-04-04 13:38 | XMS_ITS | Clinical Summary ---
Author Organization [facility] Address [address] [place] [address] Care Team Providers Care Vp & General Counsel Name Role Phone Unavailable Primary Care Provider Unavailabl e Source Comments [facility],non-owned Affiliates and Associated Physician Practices is amultiple site organization consisting of ambulatory clinics and hospital sitesin [place], [place], [place] and [place]. This disclosure is being madepursuant to the Care Everywhere program and may not contain all informatio navailable regarding this patient. Last updated 18.[facility] Allergies Active Allergy Reactions Criticality Noted Date [...] on file Legal Sex Female 4:25 AM LENS INSERTER Gender Identity Not on file Sexual Orientation Not on file Last Filed Vital Signs Vital Sign Reading Time Taken Comments Blood Pressure 125/67 07/17/2016 1:40 PM LENS INSERTER Pulse 75 07/17/2016 1:40 PM LENS INSERTER Temperature 36.1 C (97 F) 07/17/2016 1:30 PM LENS INSERTER Respiratory Rate 16 07/17/2016 1:40 PM LENS INSERTER Oxygen Saturation 95% 07/17/2016 1:40 PM LENS INSERTER Inhaled Oxygen Concentration - - Weight 85.3 kg (188 lb) 07/17/2016 12:09 PM LENS INSERTER Height 167.6 cm (5' 6) 07/17/2016 12:09 PM LENS INSERTER Body Mass Index 30.34 07/17/2016 12:09 PM LENS INSERTER Plan of Treatment Health Maintenance Due Date [...] 2001 ZOSTER VACCINE (1 of 2) 2001 DEPRESSION SCREENING 08/02/2024 COVID-19 VACCINE (1 - 2023-2 5 season) 2025 INFLUENZA VACCINE (#1) 2025 Respiratory Syncytial Virus (RSV) Vaccine Pt: [...] ENDOSCOPY, COLON, SCREENING Routine 07/17/2016 12:39 PM LENS INSERTER from Last 3 Months or Most Recently Relevant to Health Maintenance Results * ENDOSCOPY, COLON, SCREENING (07/17/2016 12:39 PM LENS INSERTER) Report Endoscopy POC _ Patient Name: Evelyn [...] 5 ASA Procedure Code(s): --- Professional --- 44777, Colonoscopy, flexible; with biopsy, single or multiple --- Technical --- 56036, Colonoscopy, flexible; with biopsy, single or multiple Diagnosis Code(s): --- Professional --- K63.89, Other specified diseases of intestine K64.8, Other hemorrhoids K52.9, Noninfective gastroenteritis and colitis, unspecified K52.89, Other specified noninfective gastroenteritis and colitis --- Technical --- K63.89, Other specified diseases of intestine K64.8, Other hemorrhoids K52.9, Noninfective gastroenteritis and colitis, unspecified K52.89, Other specified noninfective gastroenteritis and colitis CPT copyright 2015 [employer]. All rights reserved. The codes documented in this report are preliminary and upon broker review may be revised to meet current compliance requirements. ___ Silvano Lucero DO 07/17/2016 1:35:06 PM This report has been signed electronically. Number of Addenda: 0 Note Initiated On: 07/17/2016 12:39 PM [facility] ENDOSCOPY 07/17/2016 12:3 9 PM LENS INSERTER Silvano Lucero DO GI PROCEDURE ORDERABLES Ed ited Result - Final [facility] [place] [address] from Last 3 Months or Most Recently Relevant to Health Maintenance Insurance MEDICARE COMMERCIAL GENERIC MEDICARE
== END ==
LOC: EXPTROY 12:04
PROVIDERS: PCP Family Medicine; Visit Provider Family Medicine
DX: M25.511 Pain in right shoulder (principal); G89.29 Other chronic pain
CPT/HCPCS: 73030

== ENCOUNTER 2025-04-28 08:30 | Emergency (ER) | payer OTHER, SELFPAY ==
[2025-04-28 08:40] VITALS: BP 146/80; PULSE 67; RESP 18; TEMP 36.4; O2SAT 98
--- NOTE | 2025-04-28 08:48 | ED.GENADULT ---
HPI - General Adult General Chief complaint: Medical Clearance Stated complaint: High B/P Time Seen by Provider: 04/28/25 08:48 Source: patient, family, RN notes reviewed and old records reviewed Mode of arrival: ambulatory (with cane) Limitations: no limitations History of Present Illness HPI narrative: 74 year old female who presents to [facility] with complaints of blood pressure being 170/80 this morning at home and had already taken her medication. Patient reports that she has been monitoring her blood pressure at home for the past 2 weeks and her pressure has been elevated. She states that she was at pain management and pressure that day was over 180 systolic but she was in a lot of pain that day. She reports that she has cyst on her spine and has been taking therapy and also doing pain management for injections in her spine. Patient reports health stressors with herself and her who is getting ready to have heart valve replacement. Patient reports no dizziness, no shortness of breath,has had one episode of vision blurring but denies any at present time. Patient reports that she has increased pain when standing and with ambulation sitting at present time reporting no pain. MD complaint: elevation of blood pressure Onset (ago): week(s) (past 2 weeks has noted increase in her blood pressure and has been monitoring) Severity: moderate Treatments prior to arrival: other (takes present blood pressure regime as prescribed) Related Data Home Medications ?Medication ?Instructions ?Recorded ?Confirmed ?Last Taken ?Type B-complex with vitamin C (Super 1 cap PO DAILY 06/15/19 04/04/25 07/12/24 History B/C capsule) Bacillus coagulans 10 billion cell 1 cell PO DAILY 06/15/19 04/04/25 07/12/24 History capsule,delayed release (Probiotic (B. coagulans)) calcium 315 mg (as 1 tablet PO DAILY 06/15/19 04/04/25 07/12/24 History citrate)-ergocalciferol 5 mcg (200 unit) tablet cetirizine 10 mg tablet (Zyrtec) 10 mg PO DAILY PRN ALLERGIES 06/15/19 04/04/25 07/12/24 History estradiol 1 mg tablet 1 mg PO DAILY 06/15/19 04/04/25 07/12/24 History multivitamin 1 tablet PO DAILY 06/15/19 04/04/25 07/11/24 History cholecalciferol (vitamin D3) 50 2,000 unit PO DAILY 01/22/25 04/04/25 Unknown History mcg (2,000 unit) capsule Allergies Allergy/AdvReac Type Severity Reaction Status Date / Time amoxicillin Allergy Severe Hives Verified 04/28/25 08:48 ceftriaxone Allergy Severe low Verified 04/28/25 08:48 platlets Penicillins Allergy Severe Dermatitis Verified 04/28/25 08:48 lisinopril Allergy Intermediate Swelling Verified 04/28/25 08:48 of Lip/Tongue/Throat Sulfa (Sulfonamide Allergy Intermediate RASH Verified 04/28/25 08:48 Antibiotics) codeine AdvReac Intermediate Nausea Verified 04/28/25 08:48 Azithromycin Allergy Mild swelling Uncoded 03/06/25 13:52 of lips Review of Systems Review of Systems: CONSTITUTIONAL: Denies fever, chills, or sweats. EYES: Denies present visual changes, report one episode of brief visual blurring,no redness, or discharge. ENT: Denies rhinorrhea, congestion, sore throat, or otalgia. CARDIOVASCULAR: Denies chest pain, palpitations, or edema. RESPIRATORY: Denies cough or dyspnea. GASTROINTESTINAL: Denies abdominal pain, nausea, vomiting, or diarrhea. GENITOURINARY: Denies dysuria or hematuria. SKIN: Denies rash or itching. MUSCULOSKELETAL: Denies back pain, joint pain, or myalgia. NEUROLOGIC: Denies headache, numbness, or weakness, reports no dizziness PSYCHIATRIC: Reports history of anxiety or depression. All systems reviewed & are unremarkable except as noted in HPI and below PMFSH Past Medical History Medical History Chronic pain in right shoulder (~11/2024) X-ray of the right shoulder revealed mild degenerative arthritis changes on 04/04/2025. Leukocytosis WBC 14.2 on 03/12/2025. Hemoglobin 10.9 on 04/03/2025. Easy bruising (~01/2025) Hemoglobin he 13.2, platelets 333, INR 0.9, PTT 24 03/12/2025. Depression Chronic low back pain with left-sided sciatica MRI lumbar spine 01/11/2025 with moderate to severe spondylosis most severe at L4-L5 with 1.5 cm synovial cyst on the left with severe neuroforaminal stenosis and impingement. Diarrhea Abdominal pain Elevated fecal calprotectin At moderate risk for fall Low iron iron level low at 38 with 13% saturation and ferritin 37 with hemoglobin 13.3 on 03/14/2024. Iron 141, 42% saturation, ferritin 56 with hemoglobin 13.9 on 11/07/2024. Chronic anxiety Abnormal finding on EKG (06/07/23) EKG on 06/07/2023 revealed signs of left axis deviation and possible previous inferior infarction with Q-waves in the inferior leads. No old EKG for comparison. Frequent PVCs (~05/2023) Rapid palpitations (~05/2023) 24 hour Holter monitor on 06/17/2023 revealed sinus rhythm with frequent PVCs. No worrisome arrhythmias. At low risk for fall URI, acute Breast cancer screening by mammogram normal mammogram 09/02/2022 with recheck in 1 year. Normal mammogram 09/03/2023. normal mammogram 09/14/2024. Polyp of colon history of colon polyp with normal colonoscopy on 10/08/[address] Thomas with recheck in 5 years.Normal colonoscopy on 07/13/2024 with recheck in 5 years. Right elbow pain Pain in right upper arm Benign paroxysmal positional vertigo due to bilateral vestibular disorder Chronic pain in left shoulder X-ray of the left shoulder reveals mild arthritis 02/21/2022. Overweight (BMI 25.0-29.9) BMI 28.0-28.9,adult Multinodular non-toxic goiter ultrasound of the thyroid with multiple solid nodules with ill-defined margins 08/28/2021 . TSH 2.38 on 02/19/2023. BMI 27.0-27.9,adult BMI 29.0-29.9,adult Atypical chest pain Irritable bowel syndrome with diarrhea elevated calprotectin level at 992 on 03/24/2024 suggestive of inflammatory bowel disease. BMI 33.0-33.9,adult GERD (gastroesophageal reflux disease) Allergic drug reaction lisinopril with angioedema 03/06/2025. Acute non-recurrent maxillary sinusitis Cough Chronic low back pain without sciatica Vitamin D insufficiency Vitamin-D level low at 18 with goal greater than 30 on 03/14/2024. Level low at 17 on 11/07/2024. level normal 33 on 03/12/2025. Septic arthritis of knee, left Body mass index (bmi) 32.0-32.9, adult (12/22/18) Macrocytosis Hemoglobin 13.4 with MCV normal at 99.7 on 02/19/2023. Other secondary thrombocytopenia Platelets 263 on 02/19/2023. Platelets normal at 270 on 03/14/2024. Family History Family History Father Acute myocardial infarction, Onset Age: 59 Sibling Family history of malignant neoplasm, Onset Age: 58 Mother Family history of congestive heart failure, Onset Age: 75 Social History Social History Smoking status: Former smoker Alcohol intake: never Substance use: never Substance use type: does not use Lack of Transportation: No Lack of Food: Never True Current Housing: I Have Housing Concerned About Future Housing: No Difficulty Paying Gas/Electric Bills: No Difficulty Paying for Meds: No Currently Unemployed: No Education: High School Diploma/GED Difficulty w/ Childcare or Family Care: No Living arrangements: with family Spiritual care concerns: No Comments At time of signature, agree with nursing past medical, surgical, social and family history. There is no relevant family history pertinent to the presenting complaint Exam Narrative: GENERAL: Well-appearing, well-nourished, and in no acute distress. HEAD: Normocephalic, atraumatic. EYES: PERRLA and EOMI.no nystagmus ENT: Nares clear, no rhinorrhea or epistaxis. Mucous membranes moist.TM;s normal, throat pink with no swelling NECK: Supple. no lymphadenopathy CHEST: Clear to auscultation. No respiratory distress.SAO2 98% on room air HEART: Regular rate and rhythm. No murmur heard. Normal peripheral pulses. ABDOMEN: Soft, nontender, nondistended, normal active bowel sounds. EXTREMITIES: Normal range of motion.trace pedal edema. SKIN: Warm, dry, no rash. NEURO: No focal deficits. Alert and oriented x3.cranial nerves II-XII intact with no deficit noted. Course Course Emergency Course: Patient is aware of diagnosis, understands and agrees to treatment plan.? Anticipatory guidance given.? Patient agrees to follow-up as directed and is aware of reasons to seek care at the emergency department. Portions of this record may have been created with voice recognition software Level of Care: Express Care Visit Vital Signs Vital signs: Vital Signs Temperature 36.4 C 04/28/25 08:40 Pulse Rate 67 04/28/25 08:40 Respiratory Rate 18 04/28/25 08:40 Blood Pressure 146/80 H 04/28/25 08:40 Pulse Oximetry 98 04/28/25 08:40 Oxygen Delivery Room Air 04/28/25 08:40 Temperature 36.4 C 04/28/25 08:40 Pulse Rate 67 04/28/25 08:40 Respiratory Rate 18 04/28/25 08:40 Blood Pressure 146/80 H 04/28/25 08:40 Pulse Oximetry 98 04/28/25 08:40 Oxygen Delivery Room Air 04/28/25 08:40 Reviewed Medical Decision Making MDM Narrative Medical decision making narrative: Exam findings and imaging show no acute concerns or changes; patient is non-toxic appearing and is in no distress.? Patient is appropriate for outpatient treatment and follow-up Differential Diagnosis Differential Diagnosis: elevated blood pressure, primary uncontrolled hypertension, concern over elevation of blood pressure Medical Records Medical records reviewed: Yes I reviewed the external patient's medical records. Vital Signs Vital Signs: Vital Signs Temperature 36.4 C 04/28/25 08:40 Pulse Rate 04/28/25 08:40 Respiratory Rate 04/28/25 08:40 Blood Pressure 146/80 H 04/28/25 08:40 Pulse Oximetry 98 04/28/25 08:40 Oxygen Delivery Room Air 04/28/25 08:40 Temperature 36.4 C 04/28/25 08:40 Pulse Rate 04/28/25 08:40 Respiratory Rate 04/28/25 08:40 Blood Pressure 146/80 H 04/28/25 08:40 Pulse Oximetry 98 04/28/25 08:40 Oxygen Delivery Room Air 04/28/25 08:40 reviewed Critical Care Time Critical Care Time Critical Care Time: No Discharge Plan Discharge Clinical Impression: Hypertension Qualifiers: Hypertension type: primary hypertension Qualified Code(s): I10 - Essential (primary) hypertension Patient Disposition: Home Condition: Stable Instructions: Hypertension (ED) Additional Instructions: Increase Losartan to 50 mg daily Patient has 25 mg tabs at home take 2 tabs in morning Continue to monitor your blood pressure at least twice daily and keep record If any episodes of dizziness, visual disturbances, acute headaches go directly to the emergency room Make sure to maintain low sodium diet, avoid processed food and table salt Call and make Appointment with your PMD for next week for further evaluation/ If your symptoms persist, change or worsen significantly before you can contact your personal physician then please, without delay, go to the emergency department for further evaluation. Follow-up with PCP in 7-10 days or sooner if needed Follow up with PCP soon in regards to your blood pressure which is elevated above threshold for referral. Blood pressure above 120/80 may indicate pre-hypertension.146/80 manual recheck 152/82 Patient Language: Luxembourgish Prescriptions: No Action diphenhydramine HCl [Benadryl Allergy] 25 mg tablet 25 - 50 mg PO Q6H PRN (Reason: allergic reaction) Qty: 30 0RF famotidine [Pepcid] 20 mg tablet 20 mg PO BID Qty: 10 0RF losartan 25 mg tablet 25 mg PO DAILY Qty: 90 3RF ferrous sulfate 325 mg (65 mg iron) tablet,delayed release (DR/EC) 325 mg PO DAILY bupropion HCl 75 mg tablet 75 mg PO . q.a.m. Qty: 30 11RF calcium citrate-vitamin D2 1,500-200 mg-unit tablet 1 tablet PO DAILY multivitamin Tablet 1 tablet PO DAILY B-complex with vitamin C [Super B/C] Capsule 1 cap PO DAILY estradiol 1 mg tablet 1 mg PO DAILY cetirizine [Zyrtec] 10 mg tablet 10 mg PO DAILY PRN (Reason: ALLERGIES) Probiotic (B. coagulans) 10 billion cell capsule,delayed release(DR/EC) 1 cell PO DAILY triamterene-hydrochlorothiazid 37.5-25 mg tablet 1 tablet PO QAM Qty: 90 3RF metoprolol succinate 25 mg tablet extended release 24 hr 25 mg PO DAILY Qty: 30 11RF pravastatin 40 mg tablet 40 mg PO DAILY Qty: 90 3RF allopurinol 100 mg tablet 200 mg PO DAILY Qty: 180 3RF meloxicam 15 mg tablet 15 mg PO DAILY Qty: 90 3RF furosemide [Lasix] 40 mg tablet 40 mg PO QAM PRN (Reason: edema) Qty: 90 3RF cephalexin 500 mg capsule 500 mg PO Q12H Qty: 180 3RF Rx Instructions: Patient will be on this for life. Do not remove or cancel medication alprazolam 0.25 mg tablet 0.125 mg PO TID PRN (Reason: anxiety) Qty: 30 5RF cholecalciferol (vitamin D3) 50 mcg (2,000 unit) capsule 2,000 unit PO DAILY Follow-up/Referrals: Meir Mendoza MD [Primary Care Provider, [facility]] Time of Disposition: 09:10 Quality [place] Coma Scale Eyes: Open Verbal: Oriented and Alert Motor: Follows Commands Taylor Coma Total Score: 15
== END 2025-04-28 09:18 | disposition home or self-care (01) ==
PROVIDERS: Emergency Provider Registered Nurse; PCP Family Medicine
DX: I10 Essential (primary) hypertension (principal); K21.9 Gastro-esophageal reflux disease without esophagitis; E55.9 Vitamin D deficiency, unspecified; F32.A Depression, unspecified; F41.9 Anxiety disorder, unspecified; Z87.891 Personal history of nicotine dependence
CPT/HCPCS: 99211; G0463

== ENCOUNTER 2025-05-09 13:20 | Outpatient (CLI) | payer OTHER, SELFPAY ==
--- NOTE | ~2025-05-09 | XR_ITS ---
XR lumbar spine min 4V Indication: M54.16 - Radiculopathy, lumbar region Comparison: None Findings: Moderate loss of vertebral height throughout. No subluxation, no subluxation with flexion-extension, no acute fracture is identified. Levoconvex scoliosis noted. Severe loss of disc height throughout. Soft tissues unremarkable Impression: No acute abnormality. Reviewed, dictated and finalized at location P. Impression: No acute abnormality.
== END 2025-05-09 13:21 | disposition home or self-care (01) ==
PROVIDERS: PCP Family Medicine; Visit Provider Neurological Surgery
DX: M54.16 Radiculopathy, lumbar region (principal)
CPT/HCPCS: 72110

== ENCOUNTER 2025-07-11 13:49 | Outpatient (CLI) | payer OTHER, SELFPAY ==
--- NOTE | ~2025-07-11 | XR_ITS ---
EXAMINATION: XR chest 2V DATE: 07/11/2025 15:16 INDICATION: Preop TECHNIQUE: Frontal and lateral views of the chest were obtained. COMPARISON: December 09, 2009 FINDINGS: The lungs are clear. Heart size normal. Bones appear stable. Left sided PICC line has been removed. IMPRESSION: 1. No focal acute process. Reviewed, dictated and finalized at location A. ISH INTERPRETER IMPRESSION: 1. No focal acute process.
--- NOTE | 2025-07-11 14:49 | ECG_ITS ---
Test Date: 2025-07-11 15:01:38 Measurements Intervals [place] Rate: 63 P: 16 CT: 202 QRS: -37 QRSD: 83 T: 3 QT: 386 QTc: 396 Interpretive Statements SINUS RHYTHM LOW QRS VOLTAGE IN PRECORDIAL LEADS ANTEROSEPTAL INFARCT, AGE INDETERMINATE INFERIOR INFARCT, AGE INDETERMINATE BASELINE ARTIFACT- I, III, AVR, AVL, AVF ABNORMAL ECG No previous ECG available for comparison Electronically Signed On 07-11-2025 15:15:37 [employer]KER by Sebastián Marie D.O.
[2025-07-11 15:10] LABS: Hematocrit 41.0 % (37.0-47.0); Hemoglobin 13.6 g/dL (12.0-15.0); Mean Corpuscular HGB Conc 33.2 g/dl (32-36); Mean Corpuscular Hemoglobin 32.9 pg (26-34); Mean Corpuscular Volume 99.3 fl (80-100); Platelet Count Result 236 k/mm3 (150-375); Red Blood Count 4.13 M/mm3 (4.2-5.4); White Blood Count 7.5 K/mm3 (4.5-10.0)
[2025-07-11 15:11] LABS: Add Urine Microscopic? NO; Appearance Urine Clear (Clear); Glucose Urine UA Negative (Negative); Leukocyte Esterase Ur Negative LEU/UL (Negative); Nitrate Urine Negative (Negative); Specific Grav Ur 1.010 (1.001-1.035)
[2025-07-11 15:21] LABS: Anion Gap 8 mmol/L (4-12); Blood Urea Nitrogen 29 mg/dL (7-17); Calcium 10.3 mg/dL (8.4-10.2); Carbon Dioxide 27 mmol/L (22-30); Chloride 98 mmol/L (98-107); Estimated Glomerular Filt Rate 57; Glucose 104 mg/dL (65-110); Potassium 4.5 mmol/L (3.4-5.0); Sodium 133 mmol/L (137-145)
[2025-07-11 15:34] LABS: INR 0.9; Partial Thromboplastin Time 26.2 Seconds (22.3-36.8); Prothrombin Time 11.9 Seconds (11.1-14.7)
== END 2025-07-11 13:50 | disposition home or self-care (01) ==
LOC: ANHSURGERY 13:52
PROVIDERS: PCP Family Medicine; Visit Provider Neurological Surgery
DX: Z01.818 Encounter for other preprocedural examination (principal); M71.38 Other bursal cyst, other site; R93.41 Abnormal radiologic findings on diagnostic imaging of renal pelvis, ureter, or bladder
CPT/HCPCS: 36415; 71046; 80048; 81003; 85027; 85610; 85730; 93005

== ENCOUNTER 2025-07-27 08:45 | Emergency (ER) | payer OTHER, SELFPAY ==
[2025-07-27 08:56] VITALS: BP 139/74; PULSE 75; RESP 16; TEMP 36.4; O2SAT 95
--- NOTE | 2025-07-27 09:03 | ED.URI ---
HPI - URI/Sore Throat General Chief Complaint: Upper Respiratory Infection Stated Complaint: Sinus Source: patient Mode of arrival: ambulatory Limitations: no limitations History of Present Illness HPI Narrative: this is a 75-year-old female patient who presents to the urgent care with complaints of sinus congestion, cough 3 fever since Wednesday. She denies any sore throat, she denies any chest pain, shortness a breath no nausea, vomiting or diarrhea. Patient has been taking OTC cough medication with some relief of symptoms. Denies any other distress or concerns MD elicited complaint: fever, cough and nasal congestion Onset (ago): day(s) (3) Consistency: constant Severity: mild Exacerbating factors: nothing Relieving factors: cough suppressant Context: sick contacts Associated symptoms: denies other symptoms Treatments prior to arrival: cold medicine Related Data Home Medications ?Medication ?Instructions ?Recorded ?Confirmed ?Last Taken ?Type B-complex with vitamin C (Super 1 cap PO DAILY 06/15/19 07/11/25 07/12/24 History B/C capsule) Bacillus coagulans 10 billion cell 1 cell PO DAILY 06/15/19 07/11/25 07/12/24 History capsule,delayed release (Probiotic (B. coagulans)) calcium 315 mg (as 1 tablet PO DAILY 06/15/19 07/11/25 07/12/24 History citrate)-ergocalciferol 5 mcg (200 unit) tablet cetirizine 10 mg tablet (Zyrtec) 10 mg PO DAILY PRN ALLERGIES 06/15/19 07/11/25 07/12/24 History estradiol 1 mg tablet 1 mg PO DAILY 06/15/19 07/11/25 07/12/24 History multivitamin 1 tablet PO DAILY 06/15/19 07/11/25 07/11/24 History cephalexin 500 mg capsule 500 mg PO Q8H 05/10/25 07/11/25 Unknown History cholecalciferol (vitamin D3) 50 4,000 unit PO DAILY 07/05/25 07/11/25 Unknown History mcg (2,000 unit) capsule melatonin 5 mg capsule mg PO HS 07/11/25 Unknown History omeprazole 20 mg capsule,delayed 20 mg PO PRN HEARTBURN 07/11/25 07/11/25 Unknown History release potassium 99 mg tablet mg PO PRN EDEMA 07/11/25 Unknown History Allergies Allergy/AdvReac Type Severity Reaction Status Date / Time amoxicillin Allergy Severe Hives Verified 07/11/25 13:57 ceftriaxone Allergy Severe low Verified 07/11/25 13:57 platlets Penicillins Allergy Severe Dermatitis Verified 07/11/25 13:57 lisinopril Allergy Intermediate Swelling Verified 07/11/25 13:57 of Lip/Tongue/Throat Sulfa (Sulfonamide Allergy Intermediate RASH Verified 07/11/25 13:57 Antibiotics) codeine AdvReac Intermediate Nausea Verified 07/11/25 13:57 Azithromycin Allergy Mild swelling Uncoded 07/05/25 11:52 of lips Review of Systems Review of Systems: All systems reviewed & are unremarkable except as noted in HPI and below PMFSH Past Medical History Medical History GERD (gastroesophageal reflux disease) UTI (urinary tract infection) Chronic pain in right shoulder (~11/2024) X-ray of the right shoulder revealed mild degenerative arthritis changes on 04/04/2025. Leukocytosis WBC 14.2 on 03/12/2025. Hemoglobin 10.9 on 04/03/2025. Easy bruising (~01/2025) Hemoglobin he 13.2, platelets 333, INR 0.9, PTT 24 03/12/2025. Depression Chronic low back pain with left-sided sciatica MRI lumbar spine 01/11/2025 with moderate to severe spondylosis most severe at L4-L5 with 1.5 cm synovial cyst on the left with severe neuroforaminal stenosis and impingement. Diarrhea Abdominal pain Elevated fecal calprotectin At moderate risk for fall Low iron iron level low at 38 with 13% saturation and ferritin 37 with hemoglobin 13.3 on 03/14/2024. Iron 141, 42% saturation, ferritin 56 with hemoglobin 13.9 on 11/07/2024. Chronic anxiety Abnormal finding on EKG (06/07/23) EKG on 06/07/2023 revealed signs of left axis deviation and possible previous inferior infarction with Q-waves in the inferior leads. No old EKG for comparison. Frequent PVCs (~05/2023) Rapid palpitations (~05/2023) 24 hour Holter monitor on 06/17/2023 revealed sinus rhythm with frequent PVCs. No worrisome arrhythmias. At low risk for fall URI, acute Breast cancer screening by mammogram normal mammogram 09/02/2022 with recheck in 1 year. Normal mammogram 09/03/2023. normal mammogram 09/14/2024. Polyp of colon history of colon polyp with normal colonoscopy on 10/08/[address] Thomas with recheck in 5 years.Normal colonoscopy on 07/13/2024 with recheck in 5 years. Right elbow pain Pain in right upper arm Benign paroxysmal positional vertigo due to bilateral vestibular disorder Chronic pain in left shoulder X-ray of the left shoulder reveals mild arthritis 02/21/2022. Overweight (BMI 25.0-29.9) BMI 28.0-28.9,adult Multinodular non-toxic goiter ultrasound of the thyroid with multiple solid nodules with ill-defined margins 08/28/2021 . TSH 2.38 on 02/19/2023. BMI 27.0-27.9,adult BMI 29.0-29.9,adult Atypical chest pain Irritable bowel syndrome with diarrhea elevated calprotectin level at 992 on 03/24/2024 suggestive of inflammatory bowel disease. BMI 33.0-33.9,adult Allergic drug reaction lisinopril with angioedema 03/06/2025. Acute non-recurrent maxillary sinusitis Cough Chronic low back pain without sciatica Vitamin D insufficiency Vitamin-D level low at 18 with goal greater than 30 on 03/14/2024. Level low at 17 on 11/07/2024. level normal 33 on 03/12/2025. Septic arthritis of knee, left Body mass index (bmi) 32.0-32.9, adult (12/22/18) Macrocytosis Hemoglobin 13.4 with MCV normal at 99.7 on 02/19/2023. Other secondary thrombocytopenia Platelets 263 on 02/19/2023. Platelets normal at 270 on 03/14/2024. Family History Family History Father Acute myocardial infarction, Onset Age: 59 Sibling Family history of malignant neoplasm, Onset Age: 58 Mother Family history of congestive heart failure, Onset Age: 75 Social History Social History Smoking packs per day: 1 Smoking cigarettes per day: 20.0 Years smoked: 5 Smoking pack-years: 5.00 Smoking status: Former smoker Tobacco type: cigarettes Smoking end date: 08/02/79 Alcohol intake: never Substance use: never Substance use type: does not use Lack of Transportation: No Lack of Food: Never True Current Housing: I Have Housing Concerned About Future Housing: No Difficulty Paying Gas/Electric Bills: No Difficulty Paying for Meds: No Currently Unemployed: No Education: High School Diploma/GED Difficulty w/ Childcare or Family Care: No Living arrangements: with family Spiritual care concerns: No Course Course Emergency Course: this is a 75-year-old female patient who presents to the urgent care with complaints of sinus congestion, cough 3 fever since Wednesday afternoon. She denies any sore throat, she denies any chest pain, shortness a breath no nausea, vomiting or diarrhea. Patient has been taking OTC cough medication with some relief of symptoms. Denies any other distress or concerns vital signs stable influenza and COVID testing performed, Patient is influenza A positive. Educated patient on test results and symptomatic management. Educated on Tamiflu use and side effects and risks she verbalizes understanding she is agreeable to take Tamiflu. Educated patient to Increase fluids, Rest, Continue with symptomatic management: -? Cough medication per package instructions, -? Tylenol and motrin for fever and pain -? Cough drops for sore throat and cough -? Mucinex for congestion -? Vicks vapor rub -? Cool mist vaporizer Follow up with your primary MD in the next 2-3 days for further exam or Present to the ER for any worrisome sign or symptom. answer all questions to her satisfaction she is agreeable to plan. Patient denies any further needs or concerns to be addressed prior to discharge patient did state that she is having a surgical procedure to remove a cyst next Wednesday, educated the patient to notify her surgeon, discussed that she is influenza A positive and she is on Tamiflu. And follow their instructions. She verbalized understanding Level of Care: Express Care Visit Vital Signs Vital signs: Vital Signs Temperature 97.5 F L 07/27/25 08:56 Pulse Rate 75 07/27/25 08:56 Respiratory Rate 16 07/27/25 08:56 Blood Pressure 139/74 07/27/25 08:56 Pulse Oximetry 95 07/27/25 08:56 Oxygen Delivery Room Air 07/27/25 08:56 Temperature 97.5 F L 07/27/25 08:56 Pulse Rate 75 07/27/25 08:56 Respiratory Rate 16 07/27/25 08:56 Blood Pressure 139/74 07/27/25 08:56 Pulse Oximetry 95 07/27/25 08:56 Oxygen Delivery Room Air 07/27/25 08:56 MDM MDM Narrative Medical decision making narrative: this is a 75-year-old female patient who presents to the urgent care with complaints of sinus congestion, cough 3 fever since Wednesday. She denies any sore throat, she denies any chest pain, shortness a breath no nausea, vomiting or diarrhea. Patient has been taking OTC cough medication with some relief of symptoms. Denies any other distress or concerns vital signs stable influenza and COVID testing performed, Patient is influenza A positive. Educated patient on test results and symptomatic management. Educated on Tamiflu use and side effects and risks she verbalizes understanding she is agreeable to take Tamiflu. Educated patient to Increase fluids, Rest, Continue with symptomatic management: -? Cough medication per package instructions, -? Tylenol and motrin for fever and pain -? Cough drops for sore throat and cough -? Mucinex for congestion -? Vicks vapor rub -? Cool mist vaporizer Follow up with your primary MD in the next 2-3 days for further exam or Present to the ER for any worrisome sign or symptom. answer all questions to her satisfaction she is agreeable to plan. Patient denies any further needs or concerns to be addressed prior to discharge patient did state that she is having a surgical procedure to remove a cyst next Wednesday, educated the patient to notify her surgeon, discussed that she is influenza A positive and she is on Tamiflu. And follow their instructions. She verbalized understanding Differential Diagnosis Differential Diagnosis: influenza a, viral illness, COVID Medical Records I have reviewed the following patient records and this information was taken into consideration when formulating the assessment and plan.: previous labs and previous clinic visits Lab Data MDM Lab Attestation statement: I personally reviewed the patient's lab results. Lab results narrative: influenza A positive influenza B negative COVID negative Discharge Plan Discharge Clinical Impression: Influenza A Patient Disposition: Home Condition: Stable Instructions: Influenza (ED) Additional Instructions: Increase fluids Rest Tamiflu as prescribed Continue with symptomatic management: -? Cough medication per package instructions -? Tylenol and motrin for fever and pain -? Cough drops for sore throat and cough -? Mucinex for congestion -? Vicks vapor rub -? Cool mist vaporizer Follow up with your primary MD in the next 2-3 days for further exam or Present to the ER for any worrisome sign or symptom Patient Language: Syriac Prescriptions: New oseltamivir [Tamiflu] 75 mg capsule 75 mg PO Q12H 5 Days Qty: 10 0RF No Action bupropion HCl 75 mg tablet 75 mg PO . q.a.m. Qty: 30 11RF losartan 100 mg tablet 100 mg PO DAILY Qty: 90 3RF metoprolol succinate 50 mg tablet extended release 24 hr 50 mg PO DAILY Qty: 90 3RF cephalexin 500 mg capsule 500 mg PO Q8H Patient Comments: TAKES OF POST OP KNEE INFECTION potassium 99 mg tablet PO PRN omeprazole 20 mg capsule,delayed release(DR/EC) 20 mg PO PRN melatonin 5 mg capsule PO HS calcium citrate-vitamin D2 1,500-200 mg-unit tablet 1 tablet PO DAILY multivitamin Tablet 1 tablet PO DAILY B-complex with vitamin C [Super B/C] Capsule 1 cap PO DAILY estradiol 1 mg tablet 1 mg PO DAILY cetirizine [Zyrtec] 10 mg tablet 10 mg PO DAILY PRN (Reason: ALLERGIES) Probiotic (B. coagulans) 10 billion cell capsule,delayed release(DR/EC) 1 cell PO DAILY allopurinol 100 mg tablet 200 mg PO DAILY Qty: 180 3RF meloxicam 15 mg tablet 15 mg PO DAILY Qty: 90 3RF furosemide [Lasix] 40 mg tablet 40 mg PO QAM PRN (Reason: edema) Qty: 90 3RF triamterene-hydrochlorothiazid 37.5-25 mg tablet 1 tablet PO QAM Qty: 90 3RF pravastatin 40 mg tablet 40 mg PO DAILY Qty: 90 3RF alprazolam 0.25 mg tablet 0.125 mg PO TID PRN (Reason: anxiety) Qty: 30 5RF cholecalciferol (vitamin D3) 50 mcg (2,000 unit) capsule 4,000 unit PO DAILY Follow-up/Referrals: Meir Mendoza MD [Primary Care Provider, Family Practice] Time of Disposition: 09:21
[2025-07-27 09:20] LABS: EDCOVIDSCREEN Negative (Negative); EDINFLUASCREEN Positive (Negative); EDINFLUBSCREEN Negative (Negative)
== END 2025-07-27 09:32 | disposition home or self-care (01) ==
PROVIDERS: Emergency Provider Nurse Practitioner Family; PCP Family Medicine
DX: J10.1 Influenza due to other identified influenza virus with other respiratory manifestations (principal); Z20.822 Contact with and (suspected) exposure to COVID-19; K21.9 Gastro-esophageal reflux disease without esophagitis; F32.A Depression, unspecified; F41.9 Anxiety disorder, unspecified; D69.59 Other secondary thrombocytopenia; M17.12 Unilateral primary osteoarthritis, left knee; Z87.891 Personal history of nicotine dependence
CPT/HCPCS: 87426; 87804; 99213; G0463